=== PATIENT | female | born 1935 | race Caucasian/White ===

== ENCOUNTER 2017-02-21 03:31 | Day surgery (SDC) | payer MEDICARE, BC ==
--- NOTE | 2017-02-21 04:02 | EDM.PDOC ---
ED HPI GENERAL MEDICAL PROBLEM - General Chief Complaint: Abdominal Pain Stated Complaint: ABDOMINAL PAIN Time Seen by Provider: 02/21/17 03:52 - History of Present Illness INITIAL COMMENTS - FREE TEXT/NARRATIVE: 81-year-old female presents to the emergency room with abdominal pain. This abdominal pain started around 5:00 or 6:00 this last evening and continued through the night. It is now on the right side mostly lower abdomen. She has some left-sided back discomfort and this radiates around to her right lower quadrant. The pain does not extend into the groin. The patient has significant nausea no vomiting no diarrhea no constipation last normal movement was this morning several hours ago. The patient still has her appendix she's had a complete hysterectomy. She has had ovarian cancer treated with radiation. Past medical history significant for her ovarian cancer approximately 20 years ago treated with radiation and surgery no chemotherapy she is treated for thyroid disorder, hypertension, and glaucoma. Right Lower Abdominal Pain Score (Numeric/FACES): 8 - Related Data Allergies Allergy/AdvReac Type Severity Reaction Status Date / Time amoxicillin Allergy Rash Verified 02/21/17 09:39 Home Meds: Home Meds Calcium Carbonate/Vitamin D3 [Calcium 500 + Vit D Caplet] 1 each PO DAILY [History] Dextran 70/Hypromellose [Artificial Tears] 1 each OP ASDIRECTED PRN 02/21/17 [ History] Docusate Sodium [Colace] 100 mg PO DAILY 02/21/17 [History] Fish Oil/[place]-3 Fatty Acids [Fish Oil] 1 each PO BID 02/21/17 [History] Ibuprofen 200 mg PO ASDIRECTED PRN 02/21/17 [History] Levothyroxine 75 mcg PO SUTUWETHSA 02/21/17 [History] Levothyroxine [Synthroid] 50 mcg PO MOFR 02/21/17 [History] Lovastatin 40 mg PO DAILY 02/21/17 [History] Multivitamin [Multi-Vitamin Daily] 1 each PO DAILY 02/21/17 [History] Omeprazole 20 mg PO DAILY PRN 02/21/17 [History] Timolol Maleate [Timoptic 0.5% Ophth Soln] 5 ml EYEBOTH DAILY 02/21/17 [History] Travoprost [Travatan Z] 2.5 ml OP BEDTIME 02/21/17 [History] Past Medical History HEENT History: Reports: Impaired Vision Cardiovascular History: Reports: High Cholesterol Endocrine/Metabolic History: Reports: Hypothyroidism Social & Family History - Tobacco Use Smoking Status *Q: Never Smoker - Recreational Drug Use Recreational Drug Use: No ED ROS GENERAL - Review of Systems Review Of Systems: See Below Constitutional: Reports: No Symptoms HEENT: Reports: No Symptoms Respiratory: Reports: No Symptoms Cardiovascular: Reports: No Symptoms GI/Abdominal: Reports: Abdominal Pain, Nausea. Denies: Constipation, Diarrhea, Vomiting : Reports: No Symptoms Musculoskeletal: Reports: Back Pain Neurological: Reports: No Symptoms ED EXAM, GI/ABD - Physical Exam Exam: See Below Exam Limited By: No Limitations General Appearance: Alert, No Apparent Distress Head: Atraumatic, Normocephalic Neck: Normal Inspection, Supple, Non-Tender, Full Range of Motion. No: Lymphadenopathy (L), Lymphadenopathy (R) Respiratory/Chest: No Respiratory Distress, Lungs Clear, Normal Breath Sounds Cardiovascular: Regular Rate, Rhythm, No Edema, No Murmur GI/Abdominal Exam: Normal Bowel Sounds, Soft, Rebound (Firm pressure in the left lower abdomen upon releasing this patient had a significant shooting pain in the right lower quadrant), Tender (Significant right lower quadrant tenderness worsened with palpation), Other (With firm tapping on a fully extended right leg this caused discomfort in the right lower quadrant). No: Guarding, Rigid Back Exam: Normal Inspection. No: CVA Tenderness (L), CVA Tenderness (R) Extremities: Normal Inspection, No Pedal Edema Neurological: Alert, Oriented, Normal Cognition Course - Vital Signs Last Recorded V/S: Last Vital Signs Temp 36.5 C 02/21/17 14:25 Pulse 101 H 02/21/17 14:25 Resp 20 02/21/17 14:25 BP 130/62 02/21/17 14:25 Pulse Ox 97 02/21/17 14:25 - Orders/Labs/Meds Orders: Active Orders 24 hr Category Date Time Status Patient Status [ADT] Routine ADT 02/21/17 08:15 Active Communication Order [RC] ROUTINE Care 02/21/17 10:24 Active Cooling Warming Measures [RC] ASDIRECTED Care 02/21/17 10:24 Active EKG Documentation Completion [RC] STAT Care 02/21/17 04:15 Active Notify Provider [RC] ASDIRECTED Care 02/21/17 10:24 Active Oxygen Therapy [RC] ASDIRECTED Care 02/21/17 10:24 Active Pulse Oximetry [RC] ASDIRECTED Care 02/21/17 10:24 Active Ready for Discharge [RC] PER UNIT ROUTINE Care 02/21/17 10:36 Active Verify Patient Consent Obtain [RC] ASDIRECTED Care 02/21/17 07:58 Active Vital Signs [RC] Q15M Care 02/21/17 10:24 Active Schedule Procedure [COMM] Urgent Oth 02/21/17 07:58 Ordered Labs: Laboratory Tests 02/21/17 02/21/17 02/21/17 Range/Units 03:45 03:45 05:50 WBC 17.72 H (3.98-10.04) K/mm3 RBC 4.92 (3.98-5.22) M/mm3 Hgb 14.7 (11.2-15.7) gm/L Hct 44.4 (34.1-44.9) % MCV 90.2 (79.4-94.8) fl MCH 29.9 (25.6-32.2) pg MCHC 33.1 (32.2-35.5) g/dl RDW Std Deviation 47.2 H (36.4-46.3) fL Plt Count 302 (182-369) K/mm3 MPV 10.4 (9.4-12.3) fl Neut % (Auto) 78.5 H (34.0-71.1) % Lymph % (Auto) 11.0 L (19.3-51.7) % [place] % (Auto) 8.2 (4.7-12.5) % Eos % (Auto) 1.7 (0.7-5.8) Baso % (Auto) 0.3 (0.1-1.2) % Neut # (Auto) 13.89 H (1.56-6.13) K/mm3 Lymph # (Auto) 1.95 (1.18-3.74) K/mm3 [place] # (Auto) 1.45 H (0.24-0.36) K/mm3 Eos # (Auto) 0.31 (0.04-0.36) K/mm3 Baso # (Auto) 0.06 (0.01-0.08) K/mm3 Sodium 139 (136-145) mEq/L Potassium 4.1 (3.5-5.1) mEq/L Chloride 103 (98-107) mEq/L Carbon Dioxide 25 (21-32) mEq/L Anion Gap 15.1 H (5-15) BUN 14 (7-18) mg/dL Creatinine 1.1 H (0.55-1.02) mg/dL Est Cr Clr Drug Dosing 29.30 mL/min Estimated GFR (MDRD) 48 (>60) mL/min BUN/Creatinine Ratio 12.7 L (14-18) Glucose 141 H (83-115) mg/dL Calcium 9.6 (8.5-10.1) mg/dL Total Bilirubin 0.4 (0.2-1.0) mg/dL AST 30 (15-37) U/L ALT 28 (14-59) U/L Alkaline Phosphatase 96 (46-116) U/L Total Protein 7.8 (6.4-8.2) g/dl Albumin 3.7 (3.4-5.0) g/dl Globulin 4.1 gm/dL Albumin/Globulin Ratio 0.9 L (1-2) Lipase 181 (73-393) U/L Urine Color Yellow (Yellow) Urine Appearance Clear (Clear) Urine pH 7.5 (5.0-8.0) Ur Specific [place] 1.020 (1.005-1.030) Urine Protein Negative (Negative) Urine Glucose (UA) Negative (Negative) Urine Ketones Negative (Negative) Urine Occult Blood Negative (Negative) Urine Nitrite Negative (Negative) Urine Bilirubin Negative (Negative) Urine Urobilinogen 0.2 (0.2-1.0) Ur Leukocyte Esterase Trace H (Negative) Urine RBC Not seen (0-5) /hpf Urine WBC 0-5 (0-5) /hpf Ur Epithelial Cells 0-5 (0-5) /hpf Urine Bacteria Many H (FEW) /hpf Urine Mucus Not seen (FEW) /hpf Meds: Medications Discontinued Medications Generic Name Dose Route Start Last Admin Trade Name Freq PRN Reason Stop Dose Admin Hydrocodone Bitart/Acetaminophen 1 tab 02/21/17 13:03 02/21/17 13:15 [place] 325-5 Mg PO 02/21/17 13:04 1 tab ONETIME ONE Administration Bupivacaine HCl Confirm 02/21/17 08:10 02/21/17 09:29 Marcaine 0.5% Administered 02/21/17 08:11 11 ml Dose Administration 30 ml .ROUTE .STK-MED ONE Dexamethasone Confirm 02/21/17 10:31 Dexamethasone Administered 02/21/17 10:32 Dose 20 mg .ROUTE .STK-MED ONE Diatrizoate Meglum/Diatrizoate Sod 90 ml 02/21/17 05:43 02/21/17 06:17 Gastrografin 37% PO 02/21/17 05:44 90 ml ONETIME ONE Administration Diphenhydramine HCl 25 mg 02/21/17 10:26 Benadryl IVPUSH 02/21/17 18:00 Q6H PRN pruritis Fentanyl Confirm 02/21/17 08:51 Sublimaze Administered 02/21/17 08:52 Dose 250 mcg .ROUTE .STK-MED ONE Fentanyl 50 mcg 02/21/17 11:15 Sublimaze IVPUSH 02/21/17 11:31 Q5M PRN Pain Glycopyrrolate Confirm 02/21/17 10:23 [place] Administered 02/21/17 10:24 Dose 0.2 mg .ROUTE .STK-MED ONE Glycopyrrolate Confirm 02/21/17 10:23 [place]ul Administered 02/21/17 10:24 Dose 0.2 mg .ROUTE .STK-MED ONE Glycopyrrolate Confirm 02/21/17 10:23 [place]ul Administered 02/21/17 10:24 Dose 0.2 mg .ROUTE .STK-MED ONE Hydromorphone HCl 0.25 mg 02/21/17 04:36 02/21/17 04:42 Dilaudid IVPUSH 02/21/17 04:37 0.25 mg ONETIME ONE Administration Hydromorphone HCl 0.25 mg 02/21/17 06:55 02/21/17 07:04 Dilaudid IVPUSH 02/21/17 06:56 0.25 mg STAT STA Administration Hydromorphone HCl 0.5 mg 02/21/17 11:15 Dilaudid IVPUSH 02/21/17 11:31 Q15M PRN severe pain Lactated Ringer's 500 mls @ 500 mls/hr 02/21/17 04:05 02/21/17 04:20 Ringers, Lactated IV 02/21/17 05:04 500 mls/hr .BOLUS ONE Administration Lactated Ringer's 1,000 mls @ 125 mls/hr 02/21/17 04:15 02/21/17 15:14 Ringers, Lactated IV 02/21/17 23:00 125 mls/hr ASDIRECTED ROSY Administration Lactated Ringer's 500 mls @ 500 mls/hr 02/21/17 05:09 Ringers, Lactated IV 02/21/17 06:08 .BOLUS ONE Cefoxitin Sodium 1 gm/ Premix 50 mls @ 100 mls/hr 02/21/17 06:39 02/21/17 06: 47 IV 02/21/17 07:08 100 mls/hr ONETIME ONE Administration Lidocaine HCl Confirm 02/21/17 08:51 Xylocaine-Mpf 1% Administered 02/21/17 08:52 Dose 4 mls @ as directed .ROUTE .STK-MED ONE Lactated Ringer's Confirm 02/21/17 08:51 Ringers, Lactated Administered 02/21/17 08:52 Dose 1,000 mls @ as directed .ROUTE .STK-MED ONE Phenylephrine HCl 1 mg/ Sodium 10.1 mls @ 1 mls/sec 02/21/17 10:30 Chloride IV 02/21/17 18:00 TITRATE [facility] Protocol Iopamidol 150 ml 02/21/17 05:43 02/21/17 06:18 Isovue-300 (61%) IVPUSH 02/21/17 05:44 125 ml ONETIME ONE Administration Metoclopramide HCl 10 mg 02/21/17 10:26 Reglan IV 02/21/17 18:00 ONETIME PRN Nausea/Vomiting Neostigmine Methylsulfate Confirm 02/21/17 10:23 Neostigmine Methylsulfate Administered 02/21/17 10:24 Dose 10 mg .ROUTE .STK-MED ONE Ondansetron HCl 4 mg 02/21/17 04:06 02/21/17 04:19 Zofran IVPUSH 02/21/17 04:07 4 mg ONETIME ONE Administration Ondansetron HCl 4 mg 02/21/17 05:51 02/21/17 05:55 Zofran IVPUSH 02/21/17 05:52 4 mg ONETIME ONE Administration Ondansetron HCl Confirm 02/21/17 08:51 Zofran Administered 02/21/17 08:52 Dose 4 mg .ROUTE .STK-MED ONE Ondansetron HCl 4 mg 02/21/17 10:26 Zofran IVPUSH 02/21/17 18:00 ONETIME PRN Nausea/Vomiting Phenylephrine HCl Confirm 02/21/17 09:43 Geoff-Synephrine Administered 02/21/17 09:44 Dose 10 mg .ROUTE .STK-MED ONE Propofol Confirm 02/21/17 08:51 Diprivan 20 Ml Administered 02/21/17 08:52 Dose 200 mg .ROUTE .STK-MED ONE Rocuronium [place] Confirm 02/21/17 08:51 Zemuron Administered 02/21/17 08:52 Dose 50 mg .ROUTE .STK-MED ONE Scopolamine 1.5 mg 02/21/17 08:57 02/21/17 09:23 Transderm-Scop TRDERM 02/21/17 08:58 1.5 mg ONETIME ONE Administration - Re-Assessments/Exams Free Text/Narrative Re-Assessment/Exam: 02/21/17 04:06 After initial evaluation patient has rebound tenderness with pain localized to the right lower quadrant. We will start oral contrast anticipating abdominal pelvic CT with IV and oral contrast 02/21/17 06:42 CT is compatible with early appendicitis. Case discussed with Dr. Welch will give the patient a gram of cefoxitin. Departure - Departure Time of Disposition: 06:00 Disposition: DC/Tfer to [facility] Clinical Impression: Acute appendicitis - Discharge Information - My Orders Last 24 Hours: My Active Orders 02/21/17 04:15 EKG Documentation Completion [RC] STAT - Assessment/Plan Last 24 Hours: My Active Orders 02/21/17 04:15 EKG Documentation Completion [RC] STAT
[2017-02-21] MEDS ORDERED: Lactated Ringers 500 ML IV ONE ×2 (04:05→05:09)
[2017-02-21] MEDS ORDERED: Ondansetron 4 MG/2 ML SDV IVPUSH ONE ×2 (04:06→05:51)
[2017-02-21] MEDS ORDERED: HYDROmorphone 0.5 MG/0.5 ML Syringe IVPUSH ONE (04:36)
[2017-02-21] MEDS: Lactated Ringers 1,000 ML IV SCH ×2 (05:35→15:14)
[2017-02-21] MEDS ORDERED: Iopamidol 612 MG/ML 150 ML Bottle IVPUSH ONE (05:43)
[2017-02-21] MEDS ORDERED: Diatrizoate Meglumine/Diatrizoate Sodium 37% 120 ML Bottle PO ONE (05:43)
--- NOTE | 2017-02-21 06:33 | CT ---
CT abdomen and pelvis Technique: Multiple axial sections were obtained from above the dome of the diaphragm inferiorly through the pubic symphysis. Intravenous and oral contrast has been given. Delayed images were also obtained through the bladder. Comparison: No previous abdominal or pelvic CT exam is available. Findings: Appendix is dilated. Appendix contains some increased density most likely due to appendicoliths. Slight inflammatory change is seen around the appendix. Findings are felt compatible with early appendicitis. Visualized lung bases shows nothing acute. Liver shows no focal parenchymal abnormality. Spleen appears within normal limits. Adrenal glands show no nodule. Kidneys show contrast enhancement without hydronephrosis or mass. Pancreas is within normal limits. Aorta shows atherosclerotic change which continues into the iliac vessels. No aneurysm is seen. Gallbladder shows no calcified gallstones. No retroperitoneal adenopathy or mesenteric abnormalities are seen. No pelvic mass or adenopathy is seen. 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 Diffuse endplate osteophytes are seen. Vacuum disc phenomena is noted within multiple lower lumbar spine levels. Impression: 1. Findings which are felt compatible with early appendicitis as described above. 2. Other incidental findings. Diagnostic code #5
[2017-02-21] MEDS ORDERED: cefOXitin 1 GM in Premix Bag 1 BAG IV ONE (06:39)
[2017-02-21] MEDS ORDERED: HYDROmorphone 0.5 MG/0.5 ML Syringe IVPUSH STA (06:55)
[2017-02-21] MEDS ORDERED: Bupivacaine 0.5% 30 ML SDV ONE (08:10)
[2017-02-21] MEDS ORDERED: Rocuronium 50 MG/5 ML Vial ONE (08:51)
[2017-02-21] MEDS ORDERED: Lidocaine 1% 4 ML ONE (08:51)
[2017-02-21] MEDS ORDERED: Lactated Ringers 1,000 ML ONE (08:51)
[2017-02-21] MEDS ORDERED: fentaNYL 250 MCG/5 ML SDV ONE (08:51)
[2017-02-21] MEDS ORDERED: Ondansetron 4 MG/2 ML SDV ONE (08:51)
[2017-02-21] MEDS ORDERED: Propofol 200 MG/20 ML SDV ONE (08:51)
[2017-02-21] MEDS ORDERED: Scopolamine 1.5 MG Transdermal Patch TRDERM ONE (08:57)
--- NOTE | 2017-02-21 08:57 | PCM.PREANE ---
Preanesthetic Assessment - Anesthesia/Transfusion/Family Hx Anesthesia History: Prior Anesthesia Without Reaction Type of Anesthesia Reaction: Excessive Nausea/Vomiting Family History of Anesthesia Reaction: No Transfusion History: No Prior Transfusion(s) Intubation History: Unknown - Review of Systems General: No Symptoms Pulmonary: No Symptoms Cardiovascular: No Symptoms, Palpitations (on occasion) Gastrointestinal: No Symptoms (GERD with certain foods), Abdominal Pain, Nausea Neurological: No Symptoms Other: Reports: None (history of hysterectomy/ovarian Ca with radiation therapy in the past. 1990), Easy Bruising, Thyroid Problems (hyothyroid) - Physical Assessment NPO Status Date: 02/21/17 NPO Status Time: 06:18 Pulse: 100 O2 Sat by Pulse Oximetry: 95 Respiratory Rate: 26 Blood Pressure: 162/74 Temperature: 36.6 C Vital Signs: Last Vital Signs Temp 36.6 C 02/21/17 06:44 Pulse 100 02/21/17 06:44 Resp 26 H 02/21/17 06:44 BP 162/74 H 02/21/17 06:44 Pulse Ox 95 02/21/17 06:44 Height: 1.52 m Weight: 56.699 kg ASA Class: 2E Mental Status: Alert & Oriented x3 Airway Class: Mallampati = 2 Dentition: Reports: Normal Dentition, Caries Thyro-Mental Finger Breadths: 3 Mouth Opening Finger Breadths: 3 ROM/Head Extension: Full Lungs: Clear to Auscultation, Normal Respiratory Effort Cardiovascular: Regular Rate, Regular Rhythm, No Murmurs - Lab Values: Laboratory Last Values WBC 17.72 K/mm3 (3.98-10.04) H 02/21/17 03:45 RBC 4.92 M/mm3 (3.98-5.22) 02/21/17 03:45 Hgb 14.7 gm/L (11.2-15.7) 02/21/17 03:45 Hct 44.4 % (34.1-44.9) 02/21/17 03:45 MCV 90.2 fl (79.4-94.8) 02/21/17 03:45 MCH 29.9 pg (25.6-32.2) 02/21/17 03:45 MCHC 33.1 g/dl (32.2-35.5) 02/21/17 03:45 RDW Std Deviation 47.2 fL (36.4-46.3) H 02/21/17 03:45 Plt Count 302 K/mm3 (182-369) 02/21/17 03:45 MPV 10.4 fl (9.4-12.3) 02/21/17 03:45 Neut % (Auto) 78.5 % (34.0-71.1) H 02/21/17 03:45 Lymph % (Auto) 11.0 % (19.3-51.7) L 02/21/17 03:45 [place] % (Auto) 8.2 % (4.7-12.5) 02/21/17 03:45 Eos % (Auto) 1.7 (0.7-5.8) 02/21/17 03:45 Baso % (Auto) 0.3 % (0.1-1.2) 02/21/17 03:45 Neut # (Auto) 13.89 K/mm3 (1.56-6.13) H 02/21/17 03:45 Lymph # (Auto) 1.95 K/mm3 (1.18-3.74) 02/21/17 03:45 [place] # (Auto) 1.45 K/mm3 (0.24-0.36) H 02/21/17 03:45 Eos # (Auto) 0.31 K/mm3 (0.04-0.36) 02/21/17 03:45 Baso # (Auto) 0.06 K/mm3 (0.01-0.08) 02/21/17 03:45 Sodium 139 mEq/L (136-145) 02/21/17 03:45 Potassium 4.1 mEq/L (3.5-5.1) 02/21/17 03:45 Chloride 103 mEq/L (98-107) 02/21/17 03:45 Carbon Dioxide 25 mEq/L (21-32) 02/21/17 03:45 Anion Gap 15.1 (5-15) H 02/21/17 03:45 BUN 14 mg/dL (7-18) 02/21/17 03:45 Creatinine 1.1 mg/dL (0.55-1.02) H 02/21/17 03:45 Est Cr Clr Drug Dosing 29.30 mL/min 02/21/17 03:45 Estimated GFR (MDRD) 48 mL/min (>60) 02/21/17 03:45 BUN/Creatinine Ratio 12.7 (14-18) L 02/21/17 03:45 Glucose 141 mg/dL (83-115) H 02/21/17 03:45 Calcium 9.6 mg/dL (8.5-10.1) 02/21/17 03:45 Total Bilirubin 0.4 mg/dL (0.2-1.0) 02/21/17 03:45 AST 30 U/L (15-37) 02/21/17 03:45 ALT 28 U/L (14-59) 02/21/17 03:45 Alkaline Phosphatase 96 U/L (46-116) 02/21/17 03:45 Total Protein 7.8 g/dl (6.4-8.2) 02/21/17 03:45 Albumin 3.7 g/dl (3.4-5.0) 02/21/17 03:45 Globulin 4.1 gm/dL 02/21/17 03:45 Albumin/Globulin Ratio 0.9 (1-2) L 02/21/17 03:45 Lipase 181 U/L (73-393) 02/21/17 03:45 Urine Color Yellow (Yellow) 02/21/17 05:50 Urine Appearance Clear (Clear) 02/21/17 05:50 Urine pH 7.5 (5.0-8.0) 02/21/17 05:50 Ur Specific [place] 1.020 (1.005-1.030) 02/21/17 05:50 Urine Protein Negative (Negative) 02/21/17 05:50 Urine Glucose (UA) Negative (Negative) 02/21/17 05:50 Urine Ketones Negative (Negative) 02/21/17 05:50 Urine Occult Blood Negative (Negative) 02/21/17 05:50 Urine Nitrite Negative (Negative) 02/21/17 05:50 Urine Bilirubin Negative (Negative) 02/21/17 05:50 Urine Urobilinogen 0.2 (0.2-1.0) 02/21/17 05:50 Ur Leukocyte Esterase Trace (Negative) H 02/21/17 05:50 Urine RBC Not seen /hpf (0-5) 02/21/17 05:50 Urine WBC 0-5 /hpf (0-5) 02/21/17 05:50 Ur Epithelial Cells 0-5 /hpf (0-5) 02/21/17 05:50 Urine Bacteria Many /hpf (FEW) H 02/21/17 05:50 Urine Mucus Not seen /hpf (FEW) 02/21/17 05:50 Above labs reviewed and noted and within acceptable ranges to proceed with scheduled surgery. - Imaging/EKG Impressions: EKG: SR rate= 90 - Allergies Allergies/Adverse Reactions: Allergies Allergy/AdvReac Type Severity Reaction Status Date / Time amoxicillin Allergy Rash Verified 02/21/17 03:43 - Anesthesia Plan Pre-Op Medication Ordered: None - Acknowledgements Anesthesia Type Planned: General Anesthesia Pt an Appropriate Candidate for the Planned Anesthesia: Yes Alternatives and Risks of Anesthesia Discussed w Pt/Guardian: Yes Pt/Guardian Understands and Agrees with Anesthesia Plan: Yes PreAnesthesia Questionnaire HEENT History: Reports: Impaired Vision Cardiovascular History: Reports: High Cholesterol Endocrine/Metabolic History: Reports: Hypothyroidism - SUBSTANCE USE Smoking Status *Q: Never Smoker Recreational Drug Use History: No - HOME MEDS Home Medications: Home Meds Levothyroxine 75 mcg PO SUTUWETHSA 02/21/17 [History] Levothyroxine [Synthroid] 50 mcg PO MOFR 02/21/17 [History] Lovastatin 40 mg PO DAILY 02/21/17 [History] Timolol Maleate [Timoptic 0.5% Ophth Soln] 5 ml EYEBOTH DAILY 02/21/17 [History] Travoprost [Travatan Z] 2.5 ml OP BEDTIME 02/21/17 [History] - CURRENT (IN HOUSE) MEDS Current Meds: Current Medications Lactated Ringer's (Ringers, Lactated) 1,000 mls @ 125 mls/hr IV ASDIRECTED ROSY Last Admin: 02/21/17 05:35 Dose: 125 mls/hr Discontinued Medications Bupivacaine HCl (Marcaine 0.5%) Confirm Administered Dose 30 ml .ROUTE .STK-MED ONE Stop: 02/21/17 08:11 Diatrizoate Meglum/Diatrizoate Sod (Gastrografin 37%) 90 ml PO ONETIME ONE Stop: 02/21/17 05:44 Last Admin: 02/21/17 06:17 Dose: 90 ml Fentanyl (Sublimaze) Confirm Administered Dose 250 mcg .ROUTE .STK-MED ONE Stop: 02/21/17 08:52 Hydromorphone HCl (Dilaudid) 0.25 mg IVPUSH ONETIME ONE Stop: 02/21/17 04:37 Last Admin: 02/21/17 04:42 Dose: 0.25 mg Hydromorphone HCl (Dilaudid) 0.25 mg IVPUSH STAT STA Stop: 02/21/17 06:56 Last Admin: 02/21/17 07:04 Dose: 0.25 mg Lactated Ringer's (Ringers, Lactated) 500 mls @ 500 mls/hr IV .BOLUS ONE Stop: 02/21/17 05:04 Last Admin: 02/21/17 04:20 Dose: 500 mls/hr Lactated Ringer's (Ringers, Lactated) 500 mls @ 500 mls/hr IV .BOLUS ONE Stop: 02/21/17 06:08 Cefoxitin Sodium 1 gm/ Premix 50 mls @ 100 mls/hr IV ONETIME ONE Stop: 02/21/17 07:08 Last Admin: 02/21/17 06:47 Dose: 100 mls/hr Lidocaine HCl (Xylocaine-Mpf 1%) Confirm Administered Dose 4 mls @ as directed .ROUTE .STK-MED ONE Stop: 02/21/17 08:52 Lactated Ringer's (Ringers, Lactated) Confirm Administered Dose 1,000 mls @ as directed .ROUTE .STK-MED ONE Stop: 02/21/17 08:52 Iopamidol (Isovue-300 (61%)) 150 ml IVPUSH ONETIME ONE Stop: 02/21/17 05:44 Last Admin: 02/21/17 06:18 Dose: 125 ml Ondansetron HCl (Zofran) 4 mg IVPUSH ONETIME ONE Stop: 02/21/17 04:07 Last Admin: 02/21/17 04:19 Dose: 4 mg Ondansetron HCl (Zofran) 4 mg IVPUSH ONETIME ONE Stop: 02/21/17 05:52 Last Admin: 02/21/17 05:55 Dose: 4 mg Ondansetron HCl (Zofran) Confirm Administered Dose 4 mg .ROUTE .STK-MED ONE Stop: 02/21/17 08:52 Propofol (Diprivan 20 Ml) Confirm Administered Dose 200 mg .ROUTE .STK-MED ONE Stop: 02/21/17 08:52 Rocuronium [place] (Zemuron) Confirm Administered Dose 50 mg .ROUTE .STK-MED ONE Stop: 02/21/17 08:52
[2017-02-21] MEDS ORDERED: Phenylephrine 1% 10 MG/ML SDV ONE (09:43)
[2017-02-21] MEDS ORDERED: Glycopyrrolate 0.2 MG/ML SDV ONE ×3 (10:23)
[2017-02-21] MEDS ORDERED: Neostigmine Methylsulfate 10 MG/10 ML MDV ONE (10:23)
[2017-02-21] MEDS ORDERED: Metoclopramide 10 MG/2 ML SDV IV PRN (10:26)
[2017-02-21] MEDS ORDERED: Ondansetron 4 MG/2 ML SDV IVPUSH PRN (10:26)
[2017-02-21] MEDS ORDERED: diphenhydrAMINE 50 MG/ML SDV IVPUSH PRN (10:26)
[2017-02-21] MEDS ORDERED: Phenylephrine 1 MG in Sodium Chloride 0.9% 10 ML IV SCH (10:30)
[2017-02-21] MEDS ORDERED: Dexamethasone 4 MG/ML 5 ML MDV ONE (10:31)
--- NOTE | 2017-02-21 10:34 | PCM.OPNOTE ---
- General Post-Op/Procedure Note Date of Surgery/Procedure: 02/21/17 Operative Procedure(s): lap appy and lysis of adhesions Pre Op Diagnosis: acute appendicitis Post-Op Diagnosis: Same Anesthesia Technique: General ET Tube Primary Surgeon: Tuan Welch EBL in mLs: 25 Complications: None Condition: Good
--- NOTE | 2017-02-21 10:55 | HP ---
DATE OF ADMISSION: 02/21/2017 HISTORY OF PRESENT ILLNESS: This is an 81-year-old, who has pain in the abdomen started at 5 or 6 o'clock. Yesterday evening it continued and now on the right side mostly lower abdomen. Associated with some nausea. No vomiting. The patient was seen in the emergency room, [place] [phone] [place] scan was done showing appendicitis. PAST MEDICAL HISTORY: The patient's medical history is important in that 20 years ago she had ovarian cancer or uterine cancer, and she says she had intrauterine radiation. No chemotherapy. She did have a total abdominal hysterectomy. CURRENT MEDICATIONS: Per medication reconciliation form. MEDICAL PROBLEMS: Consist of hypothyroidism and elevated cholesterol. Never smoked. No drinking. No use of drugs. REVIEW OF SYSTEMS: No chest pain, shortness of breath, cough, hoarseness, wheezing, fainting, weakness, numbness, or convulsions. Does have some nausea. No vomiting. No diarrhea. PHYSICAL EXAMINATION: GENERAL: Alert, cooperative female. VITAL SIGNS: Pulse 103, respirations 18, blood pressure 182/78. EYES: Sclerae white. Extraocular muscle motion normal. ORAL CAVITY: Healthy mucous membrane with mouth and tongue. NECK: Supple. No nodes. No thyromegaly. LUNGS: Clear. No rales, rhonchi, fremitus, or dullness. HEART: Tones regular rate. No S3, S4, jugular venous distention, or murmurs. ABDOMEN: Shows tenderness and guarding in the right lower quadrant. Lower midline surgical scar. The rest of the abdominal quadrants will be obtained regarding. EXTREMITIES: Upper and lower extremities, no angulation deformities. No swelling. SKIN: Warm and dry. NEUROLOGIC: 3 through 12 intact. MUSCULOSKELETAL: Free of any pathology. ASSESSMENT: Acute appendicitis, a past history of radiation for what sounds like uterine cancer. PLAN: Plan for laparoscopic appendectomy. Discussed this procedure with the patient, with the need for aberrant placement of the ports to avoid the adhesions in the abdominal cavity. The patient understands and consents. We will schedule. MMODAL /[id number]
--- NOTE | 2017-02-21 11:00 | PCM.POSTAN ---
POST ANESTHESIA ASSESSMENT - MENTAL STATUS Mental Status: Alert - VITAL SIGNS Pulse Rate: 110 SaO2: 96 Resp Rate: 13 Blood Pressure: 168/96 Temperature: 36.6 C - RESPIRATORY Respiratory Status: Respiratory Rate WNL, Airway Patent, O2 Saturation Stable, Supplemental Oxygen - CARDIOVASCULAR CV Status: Pulse Rate WNL, Blood Pressure Stable - GASTROINTESTINAL GI Status: No Symptoms - POST OP HYDRATION Hydration Status: Adequate & Stable
[2017-02-21] MEDS ORDERED: HYDROmorphone 0.5 MG/0.5 ML Syringe IVPUSH PRN (11:15)
[2017-02-21] MEDS ORDERED: fentaNYL 100 MCG/2 ML SDV IVPUSH PRN (11:15)
[2017-02-21] MEDS ORDERED: Acetaminophen/HYDROcodone 325-5 MG Tab PO ONE (13:03)
--- NOTE | 2017-02-21 14:04 | PCM48HPAN ---
Post Anesthesia Note - EVALUATION WITHIN 48HRS OF ANESTHETIC Vital Signs in Normal Range: Yes Patient Participated in Evaluation: Yes Respiratory Function Stable: Yes Airway Patent: Yes Cardiovascular Function Stable: Yes Hydration Status Stable: Yes Pain Control Satisfactory: Yes Nausea and Vomiting Control Satisfactory: Yes Mental Status Recovered: Yes
[2017-02-21 14:29] VITALS: BP 130/62
--- NOTE | 2017-02-24 07:52 | OR ---
DATE OF OPERATION: 02/21/2017 SURGEON: Tuan Welch MD PREOPERATIVE DIAGNOSIS: Acute appendicitis, adhesions of abdomen. POSTOPERATIVE DIAGNOSIS: Acute appendicitis, adhesions of abdomen. OPERATION PERFORMED: Lysis of adhesions and laparoscopic appendectomy. ANESTHESIA: Done under general anesthetic. ESTIMATED BLOOD LOSS: About 25 mL. FINDINGS: Acute appendicitis with some adhesions of omentum just above the umbilicus. DESCRIPTION OF PROCEDURE: The patient was taken to the operating room, placed in a supine position, connected to monitoring equipment, given a general anesthetic and intubated. Antibiotics had been given. SCDs were placed. The abdomen was prepped with DuraPrep, draped off in a sterile fashion. Incision was made just above the umbilicus and using a 5 mm Optiport, abdominal cavity was entered. Pneumoperitoneum established and a 5-mm 30-degree camera was inserted showing the abdominal cavity clear except for adhesions just at the port site. No bowel was involved. I was elected to remove with a 5-mm Optiport, and the incision was then enlarged and Javier trocar was then placed in the previous Optiport site and secured with stay sutures. The abdominal cavity was then scanned and appendix was noted inflamed in the right lower quadrant. A 5 mm port was placed in the right upper quadrant and right lower quadrant. Camera was placed in the right upper quadrant port and the LigaSure was then used to take down the adhesions. Care was taken to make sure the bowel was not injured and bowel was inspected and no injuries sustained. Attention was then directed to the appendix which was tented up, and a window was placed in the base of the appendix and the mesoappendix and Endo ligator Ethicon was placed and the appendix was from the cecum. Another firing of the Endo ligator the mesoappendix from the appendix. The appendix was placed in an Endobag and removed from the abdominal cavity. Pneumoperitoneum was then re- established, the area was checked, and excellent hemostasis noted. The area was irrigated and the staple line was secured and again where the adhesions were taken down were checked again and was no bleeding. This completed the intraabdominal portion of the procedure. Pneumoperitoneum and ports were removed. The supraumbilical port was closed with running 0 Vicryl suture and the skin of each port closed with subdermal 4-0 Dexon suture. Steri-Strips and sterile dressing placed. The patient tolerated the procedure and sent to recovery room in a stable condition. MMODAL /[id number]
== END 2017-02-21 15:00 ==
LOC: JD.ED 03:31 → JD.SDS 08:09
PROVIDERS: ATTEND Surgery
DX: K35.80 Unspecified acute appendicitis (principal); I10 Essential (primary) hypertension; E03.9 Hypothyroidism, unspecified; Z90.710 Acquired absence of both cervix and uterus; Z88.1 Allergy status to other antibiotic agents; Z92.3 Personal history of irradiation; Z79.899 Other long term (current) drug therapy
CPT/HCPCS: 36415; 44970; 74177; 80053; 81001; 83690; 85025; 93005; 96361; 96365; 96375; 99285; A9270; J0694; J1100; J1170; J2370; J2405; J2710; J3010; J3490; J7120; Q9963; Q9967; 00840; 88304; 99284; J2704

== ENCOUNTER 2017-02-24 16:38 | Inpatient (IN) | payer MEDICARE, BC ==
[2017-02-24] MEDS ORDERED: Ondansetron 4 MG/2 ML SDV IVPUSH PRN (17:29)
--- NOTE | 2017-02-24 18:31 | CR ---
Addendum: Second to the last sentence within the body of previous report shows a grammatical error caused by voice recognition. This sentence should read as follows: Bony structures show slight degenerative change within the lower thoracic and lumbar spine. Other portions of the dictation remain the same. --- Addendum1 above dictated on [02/28/2017 11:00] by [Margi Kaufman, Vinh Monterroso] --- --- Addendum1 above signed on [02/28/2017 11:02] by [Margi Kaufman, Vinh Monterroso] --- --- Original report below dictated on [02/24/2017 18:27] by [Margi Kaufman Hilton J.] --- --- Original report below signed on [02/24/2017 18:29] by [Margi Kaufman, Vinh Monterroso] --- Abdomen: Supine and upright views of the abdomen were obtained. Comparison: Previous CT abdomen and pelvis exam of 02/21/17. Findings: Multiple surgical clips are seen within the abdomen. Contrast is noted within the colon from previous CT exam. This is felt to be within normal limits at this time. Small amount of small bowel gas is seen which is normal. Bony structures shows slight degenerative spine and within the lower thoracic and lumbar spine. No free air is seen. Impression: 1. Findings which are felt to be incidental as described above. Nothing acute is appreciated. Diagnostic code #2 --- Addendum1 signed ---
[2017-02-24] MEDS ORDERED: Hypromellose 0.5% Ophth Soln 15 ML Bottle EYEBOTH PRN (18:33)
[2017-02-24] MEDS: Ertapenem 1 GM in Sodium Chloride 0.9% 100 ML IV SCH (19:47)
[2017-02-24] MEDS: Levothyroxine 50 MCG Tab PO SCH (19:47)
[2017-02-24] MEDS: Lactated Ringers 1,000 ML IV SCH (19:49)
[2017-02-24] MEDS ORDERED: Aluminum Hydroxide/Magnesium Hydroxide/Simethicone Susp 30 ML Cup PO PRN (20:18)
[2017-02-24] MEDS: Latanoprost 0.005% Ophth Soln 2.5 ML Bottle EYEBOTH SCH (20:32)
[2017-02-24] MEDS: Simvastatin 10 MG Tab PO SCH (20:33)
[2017-02-24] MEDS ORDERED: Heparin Sodium 10,000 Units/1 ML MDV SUBCUT SCH (21:00)
[2017-02-25] MEDS: metroNIDAZOLE/Normal Saline 500 MG in Premix Bag 1 BAG IV SCH ×4 (00:28→23:42)
[2017-02-25] MEDS: HYDROmorphone 0.5 MG/0.5 ML Syringe IVPUSH PRN (00:35)
[2017-02-25] MEDS: Levothyroxine 75 MCG Tab PO SCH (05:57)
[2017-02-25] MEDS: Lactated Ringers 1,000 ML IV SCH ×2 (05:58→16:55)
[2017-02-25] MEDS: Heparin Sodium 5,000 Units/ML Vial SUBCUT SCH ×2 (08:24→20:35)
[2017-02-25] MEDS: Timolol Maleate 0.5% Ophth Soln 5 ML Bottle EYEBOTH SCH (08:32)
[2017-02-25] MEDS ORDERED: Pantoprazole 40 MG Tab.CR PO PRN (09:00)
[2017-02-25] MEDS: Ertapenem 1 GM in Sodium Chloride 0.9% 100 ML IV SCH (10:46)
[2017-02-25] MEDS ORDERED: Sodium Chloride 0.9% 500 ML IV ONE (13:30)
--- NOTE | 2017-02-25 15:35 | PCM.SURGPN ---
- General Info Date of Service: 02/25/17 - Review of Systems General: Reports: Appetite (poor some nausea) Gastrointestinal: Reports: No Symptoms, Abdominal Pain (crampy this am but has resolved with bm ), Diarrhea (loose stools ), Flatus, Other (pain in the RLQ) - Patient Data Vitals - Most Recent: Last Vital Signs Temp 98.6 F 02/25/17 12:00 Pulse 81 02/25/17 12:00 Resp 14 02/25/17 12:00 BP 148/75 H 02/25/17 12:00 Pulse Ox 98 02/25/17 12:00 Weight - Most Recent: 61.552 kg I&O - Last 24 Hours: Intake & Output 02/24/17 02/25/17 02/25/17 23:59 07:59 15:59 Intake Total 1192 Output Total 400 Balance 792 Lab Results Last 24 Hrs: Laboratory Results - last 24 hr 02/24/17 02/24/17 Range/Units 17:58 17:58 WBC 14.19 H (3.98-10.04) K/mm3 RBC 4.49 (3.98-5.22) M/mm3 Hgb 13.4 (11.2-15.7) gm/L Hct 41.0 (34.1-44.9) % MCV 91.3 (79.4-94.8) fl MCH 29.8 (25.6-32.2) pg MCHC 32.7 (32.2-35.5) g/dl RDW Std Deviation 47.7 H (36.4-46.3) fL Plt Count 334 (182-369) K/mm3 MPV 10.4 (9.4-12.3) fl Sodium 138 (136-145) mEq/L Potassium 3.8 (3.5-5.1) mEq/L Chloride 99 (98-107) mEq/L Carbon Dioxide 32 (21-32) mEq/L Anion Gap 10.8 (5-15) BUN 9 (7-18) mg/dL Creatinine 0.9 (0.55-1.02) mg/dL Est Cr Clr Drug Dosing 35.81 mL/min Estimated GFR (MDRD) > 60 (>60) mL/min BUN/Creatinine Ratio 10.0 L (14-18) Glucose 126 H (83-115) mg/dL Calcium 10.2 H (8.5-10.1) mg/dL TSH 3rd Generation 0.390 (0.358-3.74) uIU/mL Med Orders - Current: Current Medications Al Hydroxide/Mg Hydroxide (Mag-Al Plus) 30 ml PO Q4H PRN PRN Reason: Heartburn Last Admin: 02/24/17 20:32 Dose: 30 ml Artificial Tears (Isopto Tears 0.5% Ophth Soln) 0 ml EYEBOTH ASDIRECTED PRN PRN Reason: Dry Eyes Heparin Sodium (Porcine) (Heparin Sodium) 5,000 units SUBCUT Q12HR [facility] Last Admin: 02/25/17 08:24 Dose: 5,000 units Hydromorphone HCl (Dilaudid) 0.5 mg IVPUSH Q6H PRN PRN Reason: Pain (severe 7-10) Last Admin: 02/25/17 00:35 Dose: 0.5 mg Lactated Ringer's (Ringers, Lactated) 1,000 mls @ 100 mls/hr IV ASDIRECTED [facility] Last Admin: 02/25/17 05:58 Dose: 100 mls/hr Metronidazole 500 mg/ Premix 100 mls @ 100 mls/hr IV Q8H [facility] Last Admin: 02/25/17 08:25 Dose: 100 mls/hr Cefoxitin Sodium 2 gm/ Premix 50 mls @ 100 mls/hr IV Q8H [facility] Latanoprost (Xalatan 0.005% Ophth Soln) 0 ml EYEBOTH BEDTIME [facility] Last Admin: 02/24/17 20:32 Dose: 1 drop Levothyroxine Sodium (Levothyroxine) 75 mcg PO SuTuWeThSa@0600 [facility] Last Admin: 02/25/17 05:57 Dose: 75 mcg Levothyroxine Sodium (Synthroid) 50 mcg PO MoFr@0600 [facility] Last Admin: 02/24/17 19:47 Dose: Not Given Ondansetron HCl (Zofran) 4 mg IVPUSH Q8H PRN PRN Reason: Nausea Last Admin: 02/25/17 00:35 Dose: 4 mg Pantoprazole Sodium (Protonix) 40 mg PO DAILY PRN PRN Reason: HEARTBURN Simvastatin (Zocor) 10 mg PO BEDTIME [facility] Last Admin: 02/24/17 20:33 Dose: 10 mg Timolol Maleate (Timoptic 0.5% Ophth Soln) 0 ml EYEBOTH DAILY [facility] Last Admin: 02/25/17 08:32 Dose: 1 drop Discontinued Medications Heparin Sodium (Porcine) (Heparin Sodium) 5,000 units SUBCUT Q12HR [facility] Last Admin: 02/24/17 20:33 Dose: 5,000 units Ertapenem 1 gm/ Sodium (Chloride) 100 mls @ 100 mls/hr IV DAILY [facility] Last Admin: 02/25/17 10:46 Dose: 100 mls/hr Sodium Chloride (Normal Saline) 500 mls @ 500 mls/hr IV .BOLUS ONE Stop: 02/25/17 14:29 Last Admin: 02/25/17 14:47 Dose: Not Given - Exam Wound/Incisions: Healing Well Lungs: Clear to Auscultation, Normal Respiratory Effort Cardiovascular: Regular Rate, Regular Rhythm GI/Abdominal Exam: Soft, Tender (rlq) - Problem List Review Problem List Initiated/Reviewed/Updated: Yes - My Orders Last 24 Hours: Active Orders 24 hr Category Date Time Status Patient Status [ADT] Routine ADT 02/24/17 17:01 Active Ambulate [RC] ASDIRECTED Care 02/24/17 17:15 Active Cardiac Monitoring [RC] . DIRECTED Care 02/24/17 17:01 Active Enema [RC] ASDIRECTED Care 02/24/17 19:24 Active Intake and Output [RC] 04,16 Care 02/24/17 17:12 Active Peripheral IV Care [RC] Q2HR Care 02/24/17 17:14 Active Vital Signs [RC] 00,04,08,12,16,20 Care 02/24/17 17:13 Active Clear Liquid Diet [DIET] Diet 02/25/17 Dinner Ordered NPO [Nothing Per Oral Diet] [DIET] Diet 02/24/17 Dinner Active CBC WITH AUTO DIFF [HEME] Routine Lab 02/26/17 07:00 Ordered Alum Hydrox/Mag Hydrox/Simeth [Mag-Al Plus] Med 02/24/17 20:18 Active 30 ml PO Q4H PRN HYDROmorphone [Dilaudid] Med 02/24/17 17:30 Active 0.5 mg IVPUSH Q6H PRN Heparin Sodium Med 02/25/17 09:00 Active 5,000 units SUBCUT Q12HR Hypromellose [Isopto Tears 0.5% Ophth Soln] Med 02/24/17 18:33 Active 0 ml EYEBOTH ASDIRECTED PRN Lactated Ringers @ 50 MLS/HR(1000ml Bag) Med 02/25/17 15:45 Ordered Lactated Ringers [Ringers, Lactated] 1,000 ml IV ASDIRECTED Lactated Ringers [Ringers, Lactated] 1,000 ml Med 02/24/17 17:30 Active IV ASDIRECTED Latanoprost [Xalatan 0.005% Ophth Soln] Med 02/24/17 21:00 Active 0 ml EYEBOTH BEDTIME Levothyroxine Med 02/25/17 06:00 Active 75 mcg PO SuTuWeThSa@0600 Levothyroxine [Synthroid] Med 02/24/17 18:00 Active 50 mcg PO MoFr@0600 Ondansetron [Zofran] Med 02/24/17 17:29 Active 4 mg IVPUSH Q8H PRN Pantoprazole [ProTONIX] Med 02/25/17 09:00 Active 40 mg PO DAILY PRN Simvastatin [Zocor] Med 02/24/17 21:00 Active 10 mg PO BEDTIME Timolol Maleate [Timoptic 0.5% Oph Soln] Med 02/25/17 09:00 Active 0 ml EYEBOTH DAILY cefOXitin [Mefoxin in Dextrose,Iso-Osm 2 GM/50 ML] 2 gm Med 02/26/17 10:00 Active Premix Bag 1 bag IV Q8H metroNIDAZOLE/Normal Saline [Flagyl 500 MG in NS 100 ML Med 02/25/17 00:00 Active ] 500 mg Premix Bag 1 bag IV Q8H Resuscitation Status Routine Resus Stat 02/24/17 18:09 Ordered Medication Orders Al Hydroxide/Mg Hydroxide (Mag-Al Plus) 30 ml PO Q4H PRN PRN Reason: Heartburn Last Admin: 02/24/17 20:32 Dose: 30 ml Artificial Tears (Isopto Tears 0.5% Ophth Soln) 0 ml EYEBOTH ASDIRECTED PRN PRN Reason: Dry Eyes Heparin Sodium (Porcine) (Heparin Sodium) 5,000 units SUBCUT Q12HR [facility] Last Admin: 02/25/17 08:24 Dose: 5,000 units Hydromorphone HCl (Dilaudid) 0.5 mg IVPUSH Q6H PRN PRN Reason: Pain (severe 7-10) Last Admin: 02/25/17 00:35 Dose: 0.5 mg Lactated Ringer's (Ringers, Lactated) 1,000 mls @ 100 mls/hr IV ASDIRECTED [facility] Last Admin: 02/25/17 05:58 Dose: 100 mls/hr Infusion: 02/25/17 05:49 Dose: 100 mls/hr Admin: 02/24/17 19:49 Dose: 100 mls/hr Metronidazole 500 mg/ Premix 100 mls @ 100 mls/hr IV Q8H [facility] Last Admin: 02/25/17 08:25 Dose: 100 mls/hr Infusion: 02/25/17 01:28 Dose: 100 mls/hr Admin: 02/25/17 00:28 Dose: 100 mls/hr Cefoxitin Sodium 2 gm/ Premix 50 mls @ 100 mls/hr IV Q8H [facility] Latanoprost (Xalatan 0.005% Ophth Soln) 0 ml EYEBOTH BEDTIME [facility] Last Admin: 02/24/17 20:32 Dose: 1 drop Levothyroxine Sodium (Levothyroxine) 75 mcg PO SuTuWeThSa@0600 [facility] Last Admin: 02/25/17 05:57 Dose: 75 mcg Levothyroxine Sodium (Synthroid) 50 mcg PO MoFr@0600 [facility] Last Admin: 02/24/17 19:47 Dose: Ondansetron HCl (Zofran) 4 mg IVPUSH Q8H PRN PRN Reason: Nausea Last Admin: 02/25/17 00:35 Dose: 4 mg Pantoprazole Sodium (Protonix) 40 mg PO DAILY PRN PRN Reason: HEARTBURN Simvastatin (Zocor) 10 mg PO BEDTIME [facility] Last Admin: 02/24/17 20:33 Dose: 10 mg Timolol Maleate (Timoptic 0.5% Ophth Soln) 0 ml EYEBOTH DAILY [facility] Last Admin: 02/25/17 08:32 Dose: 1 drop - Plan Plan (Free Text/Narrative):: VS stable pt abdomen is softer and less tender xrays and pt complaint of cramps indicated a localized ileus in the rt colon ass improved plan advance diet and check cbc
[2017-02-25] MEDS: Simvastatin 10 MG Tab PO SCH (20:35)
[2017-02-25] MEDS: Latanoprost 0.005% Ophth Soln 2.5 ML Bottle EYEBOTH SCH (20:36)
[2017-02-26] MEDS: Lactated Ringers 1,000 ML IV SCH (01:00)
[2017-02-26] MEDS: HYDROmorphone 0.5 MG/0.5 ML Syringe IVPUSH PRN (01:55)
[2017-02-26] MEDS: Levothyroxine 75 MCG Tab PO SCH (05:01)
[2017-02-26] MEDS: cefOXitin 2 GM in Premix Bag 1 BAG IV SCH ×2 (09:21→18:26)
[2017-02-26] MEDS: Heparin Sodium 5,000 Units/ML Vial SUBCUT SCH ×2 (09:23→22:32)
[2017-02-26] MEDS: Timolol Maleate 0.5% Ophth Soln 5 ML Bottle EYEBOTH SCH (09:25)
[2017-02-26] MEDS: metroNIDAZOLE/Normal Saline 500 MG in Premix Bag 1 BAG IV SCH ×3 (09:58→23:20)
[2017-02-26] MEDS ORDERED: Sodium Chloride 0.9% 10 ML Syringe FLUSH PRN (14:23)
--- NOTE | 2017-02-26 14:23 | PCM.SURGPN ---
- General Info Date of Service: 02/26/17 Functional Status: Reports: Pain Controlled - Review of Systems General: Reports: No Symptoms Pulmonary: Reports: No Symptoms Gastrointestinal: Reports: Diarrhea (loose stool with every trip to the BM) - Patient Data Vitals - Most Recent: Last Vital Signs Temp 97.5 F 02/26/17 11:56 Pulse 81 02/26/17 11:56 Resp 14 02/26/17 11:56 BP 151/62 H 02/26/17 11:56 Pulse Ox 98 02/26/17 11:56 Weight - Most Recent: 61.099 kg I&O - Last 24 Hours: Intake & Output 02/25/17 02/26/17 02/26/17 23:59 07:59 15:59 Intake Total 280 725 360 Output Total 1100 600 Balance -820 125 360 Lab Results Last 24 Hrs: Laboratory Results - last 24 hr 02/26/17 Range/Units 05:22 WBC 11.81 H (3.98-10.04) K/mm3 RBC 4.02 (3.98-5.22) M/mm3 Hgb 11.8 (11.2-15.7) gm/L Hct 36.9 (34.1-44.9) % MCV 91.8 (79.4-94.8) fl MCH 29.4 (25.6-32.2) pg MCHC 32.0 L (32.2-35.5) g/dl RDW Std Deviation 47.7 H (36.4-46.3) fL Plt Count 318 (182-369) K/mm3 MPV 10.3 (9.4-12.3) fl Neut % (Auto) 60.4 (34.0-71.1) % Lymph % (Auto) 20.2 (19.3-51.7) % [place] % (Auto) 11.9 (4.7-12.5) % Eos % (Auto) 4.1 (0.7-5.8) Baso % (Auto) 1.0 (0.1-1.2) % Neut # (Auto) 7.13 H (1.56-6.13) K/mm3 Lymph # (Auto) 2.38 (1.18-3.74) K/mm3 [place] # (Auto) 1.41 H (0.24-0.36) K/mm3 Eos # (Auto) 0.49 H (0.04-0.36) K/mm3 Baso # (Auto) 0.12 H (0.01-0.08) K/mm3 Manual Slide Review Normal smear Med Orders - Current: Current Medications Al Hydroxide/Mg Hydroxide (Mag-Al Plus) 30 ml PO Q4H PRN PRN Reason: Heartburn Last Admin: 02/24/17 20:32 Dose: 30 ml Artificial Tears (Isopto Tears 0.5% Ophth Soln) 0 ml EYEBOTH ASDIRECTED PRN PRN Reason: Dry Eyes Last Admin: 02/25/17 17:00 Dose: 1 drop Heparin Sodium (Porcine) (Heparin Sodium) 5,000 units SUBCUT Q12HR [facility] Last Admin: 02/26/17 09:23 Dose: 5,000 units Hydromorphone HCl (Dilaudid) 0.5 mg IVPUSH Q6H PRN PRN Reason: Pain (severe 7-10) Last Admin: 02/26/17 01:55 Dose: 0.5 mg Metronidazole 500 mg/ Premix 100 mls @ 100 mls/hr IV Q8H [facility] Last Admin: 02/26/17 09:58 Dose: 100 mls/hr Cefoxitin Sodium 2 gm/ Premix 50 mls @ 100 mls/hr IV Q8H [facility] Last Admin: 02/26/17 09:21 Dose: 100 mls/hr Lactated Ringer's (Ringers, Lactated) 1,000 mls @ 50 mls/hr IV ASDIRECTED [facility] Last Admin: 02/26/17 01:00 Dose: 50 mls/hr Latanoprost (Xalatan 0.005% Ophth Soln) 0 ml EYEBOTH BEDTIME [facility] Last Admin: 02/25/17 20:36 Dose: 1 drop Levothyroxine Sodium (Levothyroxine) 75 mcg PO SuTuWeThSa@0600 [facility] Last Admin: 02/26/17 05:01 Dose: 75 mcg Levothyroxine Sodium (Synthroid) 50 mcg PO MoFr@0600 [facility] Last Admin: 02/24/17 19:47 Dose: Not Given Ondansetron HCl (Zofran) 4 mg IVPUSH Q8H PRN PRN Reason: Nausea Last Admin: 02/25/17 00:35 Dose: 4 mg Pantoprazole Sodium (Protonix) 40 mg PO DAILY PRN PRN Reason: HEARTBURN Simvastatin (Zocor) 10 mg PO BEDTIME [facility] Last Admin: 02/25/17 20:35 Dose: 10 mg Timolol Maleate (Timoptic 0.5% Ophth Soln) 0 ml EYEBOTH DAILY [facility] Last Admin: 02/26/17 09:25 Dose: 2 drop Discontinued Medications Heparin Sodium (Porcine) (Heparin Sodium) 5,000 units SUBCUT Q12HR [facility] Last Admin: 02/24/17 20:33 Dose: 5,000 units Lactated Ringer's (Ringers, Lactated) 1,000 mls @ 100 mls/hr IV ASDIRECTED [facility] Last Admin: 02/25/17 05:58 Dose: 100 mls/hr Ertapenem 1 gm/ Sodium (Chloride) 100 mls @ 100 mls/hr IV DAILY [facility] Last Admin: 02/25/17 10:46 Dose: 100 mls/hr Sodium Chloride (Normal Saline) 500 mls @ 500 mls/hr IV .BOLUS ONE Stop: 02/25/17 14:29 Last Admin: 02/25/17 14:47 Dose: Not Given - Exam GI/Abdominal Exam: Tender (much less than yesterday ) - Problem List Review Problem List Initiated/Reviewed/Updated: Yes - My Orders Last 24 Hours: Active Orders 24 hr Category Date Time Status Clear Liquid Diet [DIET] Diet 02/25/17 Dinner Active Lactated Ringers [Ringers, Lactated] 1,000 ml Med 02/25/17 15:45 Active IV ASDIRECTED cefOXitin [Mefoxin in Dextrose,Iso-Osm 2 GM/50 ML] 2 gm Med 02/26/17 10:00 Active Premix Bag 1 bag IV Q8H Medication Orders Al Hydroxide/Mg Hydroxide (Mag-Al Plus) 30 ml PO Q4H PRN PRN Reason: Heartburn Last Admin: 02/24/17 20:32 Dose: 30 ml Artificial Tears (Isopto Tears 0.5% Ophth Soln) 0 ml EYEBOTH ASDIRECTED PRN PRN Reason: Dry Eyes Last Admin: 02/25/17 17:00 Dose: 1 drop Heparin Sodium (Porcine) (Heparin Sodium) 5,000 units SUBCUT Q12HR [facility] Last Admin: 02/26/17 09:23 Dose: 5,000 units Admin: 02/25/17 20:35 Dose: 5,000 units Admin: 02/25/17 08:24 Dose: 5,000 units Hydromorphone HCl (Dilaudid) 0.5 mg IVPUSH Q6H PRN PRN Reason: Pain (severe 7-10) Last Admin: 02/26/17 01:55 Dose: 0.5 mg Admin: 02/25/17 00:35 Dose: 0.5 mg Metronidazole 500 mg/ Premix 100 mls @ 100 mls/hr IV Q8H [facility] Last Admin: 02/26/17 09:58 Dose: 100 mls/hr Infusion: 02/26/17 00:42 Dose: 100 mls/hr Admin: 02/25/17 23:42 Dose: 100 mls/hr Infusion: 02/25/17 17:55 Dose: 100 mls/hr Admin: 02/25/17 16:55 Dose: 100 mls/hr Infusion: 02/25/17 09:25 Dose: 100 mls/hr Admin: 02/25/17 08:25 Dose: 100 mls/hr Infusion: 02/25/17 01:28 Dose: 100 mls/hr Admin: 02/25/17 00:28 Dose: 100 mls/hr Cefoxitin Sodium 2 gm/ Premix 50 mls @ 100 mls/hr IV Q8H [facility] Last Admin: 02/26/17 09:21 Dose: 100 mls/hr Lactated Ringer's (Ringers, Lactated) 1,000 mls @ 50 mls/hr IV ASDIRECTED [facility] Last Admin: 02/26/17 01:00 Dose: 50 mls/hr Infusion: 02/26/17 01:00 Dose: 50 mls/hr Admin: 02/25/17 16:55 Dose: 50 mls/hr Latanoprost (Xalatan 0.005% [facility] Soln) 0 ml EYEBOTH BEDTIME [facility] Last Admin: 02/25/17 20:36 Dose: 1 drop Admin: 02/24/17 20:32 Dose: 1 drop Levothyroxine Sodium (Levothyroxine) 75 mcg PO SuTuWeThSa@0600 [facility] Last Admin: 02/26/17 05:01 Dose: 75 mcg Admin: 02/25/17 05:57 Dose: 75 mcg Levothyroxine Sodium (Synthroid) 50 mcg PO MoFr@0600 [facility] Last Admin: 02/24/17 19:47 Dose: Ondansetron HCl (Zofran) 4 mg IVPUSH Q8H PRN PRN Reason: Nausea Last Admin: 02/25/17 00:35 Dose: 4 mg Pantoprazole Sodium (Protonix) 40 mg PO DAILY PRN PRN Reason: HEARTBURN Simvastatin (Zocor) 10 mg PO BEDTIME [facility] Last Admin: 02/25/17 20:35 Dose: 10 mg Admin: 02/24/17 20:33 Dose: 10 mg Timolol Maleate (Timoptic 0.5% Oph Soln) 0 ml EYEBOTH DAILY [facility] Last Admin: 02/26/17 09:25 Dose: 2 drop Admin: 02/25/17 08:32 Dose: 1 drop - Plan Plan (Free Text/Narrative):: slow improvment of sx wbc is decreasing ass improvement plan attendent to diarrhea with c diff study advance dient
[2017-02-26] MEDS ORDERED: hydrALAZINE 20 MG/ML SDV IVPUSH PRN (15:38)
[2017-02-26] MEDS ORDERED: LORazepam 2 MG/ML MDV IVPUSH PRN (15:38)
[2017-02-26] MEDS ORDERED: Bumetanide 1 MG/4 ML MDV IVPUSH ONE (15:38)
[2017-02-26] MEDS ORDERED: Metoprolol Tartrate 5 MG/5 ML SDV IVPUSH PRN (15:38)
[2017-02-26] MEDS ORDERED: cloNIDine 0.1 MG/Day Transdermal Patch TRDERM SCH (16:00)
--- NOTE | 2017-02-26 16:15 | PCM.CONS ---
H&P History of Present Illness - General Date of Service: 02/26/17 Admit Problem/Dx: Admission Diagnosis/Problem Admission Diagnosis/Problem Abdominal pain Source of Information: Patient, Old Records, Provider, RN Notes Reviewed, Significant Other History Limitations: Reports: No Limitations - History of Present Illness Initial Comments - Free Text/Narative: This is an 9o yo elderly white female with past medical hx/o hypothyroidism and hyperlipidemia who underwent laparoscopic appendectomy post operative day 5 who comes in for abdominal pain, abdominal distension and elevated WBC. Patient seems to be doing just fine. She reports nausea w/o vomiting and loose bowel movement. She denies fever or chills. No chest pain or shortness of breath. No signs of systemic infection. Her initial workup shows a CBC remarkable for WBC of 11.81, and neutrophils count of 7.13. Hospital medicine was consulted for medical management of accelerated blood pressure. Bilateral Lower Abdomen Pain Score (Numeric/FACES): 5 - Related Data Allergies/Adverse Reactions: Allergies Allergy/AdvReac Type Severity Reaction Status Date / Time amoxicillin Allergy Rash Verified 02/21/17 09:39 Home Medications: Home Meds Calcium Carbonate/Vitamin D3 [Calcium 500 + Vit D Caplet] 1 each PO DAILY [History] Dextran 70/Hypromellose [Artificial Tears] 1 each OP ASDIRECTED PRN 02/21/17 [ History] Docusate Sodium [Colace] 100 mg PO DAILY 02/21/17 [History] Fish Oil/[place]-3 Fatty Acids [Fish Oil] 1 each PO DAILY 02/21/17 [History] Ibuprofen 200 mg PO Q4HR PRN 02/21/17 [History] Levothyroxine 75 mcg PO SUTUWETHSA 02/21/17 [History] Levothyroxine [Synthroid] 50 mcg PO MOFR 02/21/17 [History] Lovastatin 20 mg PO BEDTIME 02/21/17 [History] Multivitamin [Multi-Vitamin Daily] 1 each PO DAILY 02/21/17 [History] Omeprazole 20 mg PO DAILY PRN 02/21/17 [History] Timolol Maleate [Timoptic 0.5% Ophth Soln] 1 drop EYEBOTH DAILY 02/21/17 [ History] Travoprost [Travatan Z] 1 drop EYEBOTH BEDTIME 02/21/17 [History] Acetaminophen/HYDROcodone [Maple 325-5 MG] 1 tab PO Q6HR PRN 02/24/17 [History] Clindamycin HCl [Cleocin HCl] 300 mg PO TID 02/24/17 [History] Past Medical History HEENT History: Reports: Glaucoma, Impaired Vision, Macular Degeneration Cardiovascular History: Reports: High Cholesterol Gastrointestinal History: Reports: GERD NAIL KEGGER History: Reports: Other (See Below) Other OB/BYN History: ovarian cancer Musculoskeletal History: Reports: Arthritis Endocrine/Metabolic History: Reports: Hypothyroidism Other Oncologic History: ovarian cancer had radiation 1990 - Infectious Disease History Infectious Disease History: Reports: Measles - Past Surgical History HEENT Surgical History: Reports: None Cardiovascular Surgical History: Reports: None GI Surgical History: Reports: None Female Surgical History: Reports: Hysterectomy, Oophorectomy Endocrine Surgical History: Reports: None Other Musculoskeletal Surgeries/Procedures:: bilat knee ache and hurt alot. Oncologic Surgical History: Reports: None Dermatological Surgical History: Reports: None Social & Family History - Family History Family Medical History: Noncontributory - Tobacco Use Smoking Status *Q: Never Smoker Second Hand Smoke Exposure: No - Caffeine Use Caffeine Use: Reports: Coffee Other Caffeine Use: 1 cup - Recreational Drug Use Recreational Drug Use: No Drug Use in Last 12 Months: No H&P Review of Systems - Review of Systems: Review Of Systems: See Below General: Denies: Fever, Chills, Malaise, Weakness, Fatigue, Decreased Appetite HEENT: Reports: No Symptoms Pulmonary: Denies: Shortness of Breath Cardiovascular: Reports: Blood Pressure Problem. Denies: Chest Pain, Dyspnea on Exertion, Edema, Lightheadedness Gastrointestinal: Reports: Abdominal Pain, Distension, Flatus, Nausea. Denies: Constipation, Diarrhea, Decreased Appetite, Difficulty Swallowing, Vomiting Genitourinary: Reports: No Symptoms Musculoskeletal: Reports: No Symptoms Skin: Denies: Cyanosis, Jaundice, Pallor Psychiatric: Denies: Depression, Anxiety, Hallucinations, Suicidal Ideation, Homicidal Ideation Neurological: Denies: Confusion, Difficulty Walking, Weakness, Gait Disturbance Hematologic/Lymphatic: Reports: No Symptoms Immunologic: Reports: No Symptoms Exam - Exam Exam: See Below - Vital Signs Vital Signs: Last Vital Signs Temp 36.8 C 02/26/17 15:08 Pulse 81 02/26/17 15:08 Resp 12 02/26/17 15:08 BP 170/62 H 02/26/17 15:58 Pulse Ox 100 02/26/17 15:08 Weight: 61.099 kg - Exam General: Alert, Oriented, Cooperative. No: Mild Distress HEENT: Conjunctiva Clear, EACs Clear, EOMI, Hearing Intact, Mucosa Moist & [place] , Nares Patent, Normal Nasal Septum, Posterior Pharynx Clear, Pupils Equal, Pupils Reactive Neck: Supple, Trachea Midline Lungs: Clear to Auscultation, Normal Respiratory Effort Cardiovascular: Regular Rate, Regular Rhythm GI/Abdominal Exam: Soft, No Organomegaly, Tender, Abnormal Bowel Sounds, Other ( surgical wounds clean, dry and intact). No: No Distention, No Abnormal Bruit, No Mass, Guarding, Rigid, Rebound (Female) Exam: Deferred Rectal (Female) Exam: Deferred Back Exam: Normal Inspection, Decreased Range of Motion Extremities: Normal Inspection, Normal Range of Motion, Non-Tender, No Pedal Edema, Normal Capillary Refill Peripheral Pulses: 2+: Posterior Tibial (L), Posterior Tibial (R), Dorsalis Pedis (L), Dorsalis Pedis (R) Skin: Warm, Dry, Intact Neuro Extensive - Mental Status: Oriented x3, Normal Cognition, Memory Intact Neuro Extensive - Motor, Sensory, Reflexes: CN II-XII Intact (grossly intact), Normal Gait Psychiatric: Alert, Normal Affect, Normal Mood - Patient Data Lab Results Last 24 hrs: Laboratory Results - last 24 hr 02/26/17 Range/Units 05:22 WBC 11.81 H (3.98-10.04) K/mm3 RBC 4.02 (3.98-5.22) M/mm3 Hgb 11.8 (11.2-15.7) gm/L Hct 36.9 (34.1-44.9) % MCV 91.8 (79.4-94.8) fl MCH 29.4 (25.6-32.2) pg MCHC 32.0 L (32.2-35.5) g/dl RDW Std Deviation 47.7 H (36.4-46.3) fL Plt Count 318 (182-369) K/mm3 MPV 10.3 (9.4-12.3) fl Neut % (Auto) 60.4 (34.0-71.1) % Lymph % (Auto) 20.2 (19.3-51.7) % Rains % (Auto) 11.9 (4.7-12.5) % Eos % (Auto) 4.1 (0.7-5.8) Baso % (Auto) 1.0 (0.1-1.2) % Neut # (Auto) 7.13 H (1.56-6.13) K/mm3 Lymph # (Auto) 2.38 (1.18-3.74) K/mm3 Rains # (Auto) 1.41 H (0.24-0.36) K/mm3 Eos # (Auto) 0.49 H (0.04-0.36) K/mm3 Baso # (Auto) 0.12 H (0.01-0.08) K/mm3 Manual Slide Review Normal smear Result Diagrams: 02/26/17 05:22 02/24/17 17:58 Consult PN Assessment/Plan POD#: 5 Procedures: Procedures ASSAY THYROID STIM HORMONE (10/22/16) COMPLETE CBC AUTOMATED (10/22/16) COMPREHEN METABOLIC PANEL (10/22/16) DXA BONE DENSITY AXIAL (05/04/15) LIPID PANEL (10/22/16) MANUAL THERAPY 1/> REGIONS (10/03/16) METABOLIC PANEL TOTAL CA (04/23/16) MRI JNT OF LWR EXTRE W/O DYE (09/06/16) OFFICE/OUTPATIENT VISIT EST (10/22/16) OFFICE/OUTPATIENT VISIT NEW (09/04/16) PT EVAL LOW COMPLEX 20 MIN (10/03/16) ROUTINE VENIPUNCTURE (10/22/16) THERAPEUTIC EXERCISES (10/03/16) URINALYSIS AUTO W/O SCOPE (10/22/16) Problem List Initiated/Reviewed/Updated: Yes My Orders Last 24 Hours: My Active Orders 02/26/17 15:38 LORazepam [Ativan] 2 mg IVPUSH Q4H PRN Metoprolol Tartrate [Lopressor] 5 mg IVPUSH Q4H PRN hydrALAZINE [Apresoline] 20 mg IVPUSH Q4H PRN 02/26/17 16:00 cloNIDine [Catapres-TTS 1] 0.1 mg TRDERM Q7D Plan: Assessment: Acute: Post- Operative Hypertension (Accelerated HTN) - Has no hx/o HTN - Pain and BP on average not controlled - Highest BP noted at 180/82 mmHg - Clonidine 0.1 mg po x 1 and Bumex 0.5 mg IVP x 1 now - PRN Hydralazine S/p Lap-Appendectomy - POD #5 - Defer to Primary Team Post-Operative Leukocytosis - Inflammatory vs Infection - Defer to Primary Team Chronic: Hypothyroidism, Stable HLD, Stable Plan: She looks clinically stable otherwise Resume Home Meds CRP in AM Encourage to Ambulate TID-QID Additional orders as above Thank you for the opportunity to participate in the management of this patient. Requesting Provider: Dr. Welch Date Consult Requested: 02/26/17 Reason for Consult: Post-Operative Care Patient History Reviewed: Yes Admission H&P Reviewed: Yes Consult Result/Summary: Hypertension
[2017-02-26] MEDS: Latanoprost 0.005% Ophth Soln 2.5 ML Bottle EYEBOTH SCH (22:31)
[2017-02-26] MEDS: Simvastatin 10 MG Tab PO SCH (22:32)
[2017-02-26] MEDS: Hydrochlorothiazide 12.5 MG Cap PO SCH (22:32)
[2017-02-27] MEDS: cefOXitin 2 GM in Premix Bag 1 BAG IV SCH ×2 (01:34→10:13)
[2017-02-27] MEDS: Hydrochlorothiazide 12.5 MG Cap PO SCH ×2 (06:08→13:46)
[2017-02-27] MEDS: Levothyroxine 75 MCG Tab PO SCH (06:09)
[2017-02-27] MEDS: Timolol Maleate 0.5% Ophth Soln 5 ML Bottle EYEBOTH SCH (08:12)
[2017-02-27] MEDS: Heparin Sodium 5,000 Units/ML Vial SUBCUT SCH ×2 (08:13→21:50)
[2017-02-27] MEDS: metroNIDAZOLE/Normal Saline 500 MG in Premix Bag 1 BAG IV SCH ×2 (08:13→16:09)
--- NOTE | 2017-02-27 11:20 | PCM.CONSN ---
<Lidia Heart M - Last Filed: 02/27/17 12:22> - General Info Date of Service: 02/27/17 Admission Dx/Problem (Free Text): Admission Diagnosis/Problem Admission Diagnosis/Problem Abdominal pain Rebekah is seen this morning. Doing "better". Did not sleep well as had "diarrhea " most of the night and did not rest well. However, no further stools for the past few hours now. Denies ALLEN, CP, palpitations, vision change, back pain, hematuria with re: HTN. B/P's have been under better control. Functional Status: Reports: Pain Controlled, Tolerating Diet, Ambulating (with assist), Urinating - Review of Systems General: Reports: Fever (low grade) HEENT: Reports: No Symptoms Pulmonary: Reports: No Symptoms Cardiovascular: Reports: No Symptoms Gastrointestinal: Reports: Abdominal Pain (improved), Diarrhea. Denies: Nausea , Vomiting Genitourinary: Reports: No Symptoms. Denies: Dysuria, Burning, Pain, Urgency Musculoskeletal: Reports: No Symptoms Neurological: Reports: No Symptoms Psychiatric: Reports: No Symptoms - Patient Data Vitals - Most Recent: Last Vital Signs Temp 99.0 F 02/27/17 08:03 Pulse 94 02/27/17 08:03 Resp 14 02/27/17 08:03 BP 126/77 02/27/17 08:03 Pulse Ox 100 02/27/17 08:03 Weight - Most Recent: 59.693 kg I&O - Last 24 Hours: Intake & Output 02/26/17 02/27/17 02/27/17 22:59 06:59 14:59 Intake Total 1703 775 100 Output Total 700 2450 Balance 1003 -1675 100 Lab Results Last 24 Hours: Laboratory Results - last 24 hr 02/26/17 02/27/17 Range/Units 16:00 05:45 C-Reactive Protein 11.2 H* (<1.0) mg/dL C.difficile [id number]-[id number] Presumptive negative C. difficile Tox (PCR) Negative Med Orders - Current: Current Medications Al Hydroxide/Mg Hydroxide (Mag-Al Plus) 30 ml PO Q4H PRN PRN Reason: Heartburn Last Admin: 02/24/17 20:32 Dose: 30 ml Artificial Tears (Isopto Tears 0.5% Ophth Soln) 0 ml EYEBOTH ASDIRECTED PRN PRN Reason: Dry Eyes Last Admin: 02/25/17 17:00 Dose: 1 drop Clonidine HCl (Catapres-Tts 1) 0.1 mg TRDERM Q7D [facility] Last Admin: 02/26/17 15:58 Dose: 0.1 mg Heparin Sodium (Porcine) (Heparin Sodium) 5,000 units SUBCUT Q12HR [facility] Last Admin: 02/27/17 08:13 Dose: 5,000 units Hydralazine HCl (Apresoline) 20 mg IVPUSH Q4H PRN PRN Reason: Hypertension Hydrochlorothiazide (Hydrochlorothiazide) 12.5 mg PO BIDDIURETIC [facility] Last Admin: 02/27/17 06:08 Dose: 12.5 mg Hydromorphone HCl (Dilaudid) 0.5 mg IVPUSH Q6H PRN PRN Reason: Pain (severe 7-10) Last Admin: 02/26/17 01:55 Dose: 0.5 mg Metronidazole 500 mg/ Premix 100 mls @ 100 mls/hr IV Q8H [facility] Last Admin: 02/27/17 08:13 Dose: 100 mls/hr Cefoxitin Sodium 2 gm/ Premix 50 mls @ 100 mls/hr IV Q8H [facility] Last Admin: 02/27/17 10:13 Dose: 100 mls/hr Latanoprost (Xalatan 0.005% Oph Soln) 0 ml EYEBOTH BEDTIME [facility] Last Admin: 02/26/17 22:31 Dose: 1 drop Levothyroxine Sodium (Levothyroxine) 75 mcg PO SuTuWeThSa@0600 [facility] Last Admin: 02/27/17 06:09 Dose: 75 mcg Levothyroxine Sodium (Synthroid) 50 mcg PO MoFr@0600 [facility] Last Admin: 02/24/17 19:47 Dose: Not Given Lorazepam (Ativan) 2 mg IVPUSH Q4H PRN PRN Reason: Seizures Metoprolol Tartrate (Lopressor) 5 mg IVPUSH Q4H PRN PRN Reason: Tachycardia Miscellaneous Information (Remove Patch) 1 ea TRDERM Q7D [facility] Ondansetron HCl (Zofran) 4 mg IVPUSH Q8H PRN PRN Reason: Nausea Last Admin: 02/25/17 00:35 Dose: 4 mg Pantoprazole Sodium (Protonix) 40 mg PO DAILY PRN PRN Reason: HEARTBURN Saccharomyces Boulardii (Florastor) 250 mg PO BID [facility] Simvastatin (Zocor) 10 mg PO BEDTIME [facility] Last Admin: 02/26/17 22:32 Dose: 10 mg Sodium Chloride (Saline Flush) 10 ml FLUSH ASDIRECTED PRN PRN Reason: Keep Vein Open Timolol Maleate (Timoptic 0.5% Ophth Soln) 0 ml EYEBOTH DAILY [facility] Last Admin: 02/27/17 08:12 Dose: 2 drop Discontinued Medications Bumetanide (Bumex) 0.5 mg IVPUSH ONETIME ONE Stop: 02/26/17 15:39 Last Admin: 02/26/17 15:57 Dose: 0.5 mg Heparin Sodium (Porcine) (Heparin Sodium) 5,000 units SUBCUT Q12HR [facility] Last Admin: 02/24/17 20:33 Dose: 5,000 units Lactated Ringer's (Ringers, Lactated) 1,000 mls @ 100 mls/hr IV ASDIRECTED [facility] Last Admin: 02/25/17 05:58 Dose: 100 mls/hr Ertapenem 1 gm/ Sodium (Chloride) 100 mls @ 100 mls/hr IV DAILY [facility] Last Admin: 02/25/17 10:46 Dose: 100 mls/hr Sodium Chloride (Normal Saline) 500 mls @ 500 mls/hr IV .BOLUS ONE Stop: 02/25/17 14:29 Last Admin: 02/25/17 14:47 Dose: Not Given Lactated Ringer's (Ringers, Lactated) 1,000 mls @ 50 mls/hr IV ASDIRECTED [facility] Last Admin: 02/26/17 01:00 Dose: 50 mls/hr - Exam Quality Assessment: DVT Prophylaxis General: Alert, Oriented, Cooperative, No Acute Distress, Other (resting comfortably in bed) HEENT: Pupils Equal, Pupils Reactive, EOMI, Mucous Membr. Moist/[place] Neck: Supple Lungs: Clear to Auscultation, Normal Respiratory Effort Cardiovascular: Regular Rate, Regular Rhythm GI/Abdominal Exam: Normal Bowel Sounds, No Organomegaly, No Mass, Tender ( minimal diffuse tenderness). No: No Distention (Female) Exam: Deferred Extremities: Normal Inspection, No Pedal Edema Peripheral Pulses: 2+: Dorsalis Pedis (L), Dorsalis Pedis (R) Neurological: No New Focal Deficit Psy/Mental Status: Alert, Normal Affect, Normal Mood Consult PN Assessment/Plan Procedures: Procedures ASSAY OF LIPASE (02/21/17) ASSAY THYROID STIM HORMONE (10/22/16) COMPLETE CBC AUTOMATED (10/22/16) COMPLETE CBC W/AUTO DIFF WBC (02/21/17) COMPREHEN METABOLIC PANEL (02/21/17) CT ABD & PELV W/CONTRAST (02/21/17) DXA BONE DENSITY AXIAL (05/04/15) ELECTROCARDIOGRAM TRACING (02/21/17) EMERGENCY DEPT VISIT (02/21/17) HYDRATE IV INFUSION ADD-ON (02/21/17) LAPAROSCOPY APPENDECTOMY (02/21/17) LIPID PANEL (10/22/16) MANUAL THERAPY 1/> REGIONS (10/03/16) METABOLIC PANEL TOTAL CA (04/23/16) MRI JNT OF LWR EXTRE W/O DYE (09/06/16) OFFICE/OUTPATIENT VISIT EST (10/22/16) OFFICE/OUTPATIENT VISIT NEW (09/04/16) PT EVAL LOW COMPLEX 20 MIN (10/03/16) ROUTINE VENIPUNCTURE (02/21/17) THER/PROPH/DIAG IV INF INIT (02/21/17) THERAPEUTIC EXERCISES (10/03/16) TX/PRO/DX INJ NEW DRUG ADDON (02/21/17) URINALYSIS AUTO W/O SCOPE (10/22/16) URINALYSIS AUTO W/SCOPE (02/21/17) (1) S/P appendectomy SNOMED Code(s): 410987421, 573935749 Code(s): Z90.49 - ACQUIRED ABSENCE OF OTHER SPECIFIED PARTS OF DIGESTIVE TRACT Priority: High Current Visit: Yes (2) Leukocytosis SNOMED Code(s): 801193727, 649325470 Code(s): D72.829 - ELEVATED WHITE BLOOD CELL COUNT, UNSPECIFIED Priority: High Current Visit: Yes (3) HTN (hypertension) SNOMED Code(s): 72805444 Code(s): I10 - ESSENTIAL (PRIMARY) HYPERTENSION Priority: High Current Visit: Yes Qualifiers: Hypertension type: unspecified Qualified Code(s): I10 - Essential (primary ) hypertension Problem List Initiated/Reviewed/Updated: Yes My Orders Last 24 Hours: My Active Orders 02/27/17 11:06 BASIC METABOLIC PANEL,BMP [CHEM] Urgent C-REACTIVE PROTEIN [CHEM] Urgent CBC WITH AUTO DIFF [HEME] Urgent MAGNESIUM [CHEM] Urgent 02/27/17 11:07 LACTIC ACID [CHEM] Routine 02/27/17 11:15 Saccharomyces Boulardii [Florastor] 250 mg PO BID 02/27/17 Breakfast Regular Diet [DIET] Plan: S/P appendectomy with Dr. Welch -Postop constipation now with diarrhea -Dr. Welch is primary addressing these concerns Leukocytosis -See above, treated with IV abx per Dr. Welch Consult to Hospitalist service for HTN HTN: -Clonidine patch -HCTZ PO -B/P controlled now -Asymptomatic -Will recommend f/up with PCP following dc for HTN Other: Ambulate Diet per Dr. Welch DVT/GI prophylax CM/SW for assist with DC planning Patient is Full Code status <Samanta Gibson - Last Filed: 02/27/17 15:34> - Patient Data Vitals - Most Recent: Last Vital Signs Temp 36.6 C 02/27/17 12:20 Pulse 81 02/27/17 12:20 Resp 14 02/27/17 12:20 BP 140/68 02/27/17 12:20 Pulse Ox 96 02/27/17 12:20 I&O - Last 24 Hours: Intake & Output 02/27/17 02/27/17 02/27/17 06:59 14:59 22:59 Intake Total 775 100 Output Total 2450 Balance -1675 100 Lab Results Last 24 Hours: Laboratory Results - last 24 hr 02/26/17 02/27/17 02/27/17 Range/Units 16:00 05:45 12:15 WBC 14.34 H (3.98-10.04) K/mm3 RBC 4.41 (3.98-5.22) M/mm3 Hgb 13.0 (11.2-15.7) gm/L Hct 39.1 (34.1-44.9) % MCV 88.7 (79.4-94.8) fl MCH 29.5 (25.6-32.2) pg MCHC 33.2 (32.2-35.5) g/dl RDW Std Deviation 46.0 (36.4-46.3) fL Plt Count 357 (182-369) K/mm3 MPV 9.7 (9.4-12.3) fl Neut % (Auto) 66.0 (34.0-71.1) % Lymph % (Auto) 14.0 L (19.3-51.7) % Amador % (Auto) 12.4 (4.7-12.5) % Eos % (Auto) 1.8 (0.7-5.8) Baso % (Auto) 2.0 H (0.1-1.2) % Neut # (Auto) 9.46 H (1.56-6.13) K/mm3 Lymph # (Auto) 2.01 (1.18-3.74) K/mm3 Amador # (Auto) 1.78 H (0.24-0.36) K/mm3 Eos # (Auto) 0.26 (0.04-0.36) K/mm3 Baso # (Auto) 0.28 H (0.01-0.08) K/mm3 Manual Slide Review Abnormal smear Sodium (136-145) mEq/L Potassium (3.5-5.1) mEq/L Chloride (98-107) mEq/L Carbon Dioxide (21-32) mEq/L Anion Gap (5-15) BUN (7-18) mg/dL Creatinine (0.55-1.02) mg/dL Est Cr Clr Drug Dosing mL/min Estimated GFR (MDRD) (>60) mL/min BUN/Creatinine Ratio (14-18) Glucose (83-115) mg/dL Lactic Acid (0.4-2.0) mmol/L Calcium (8.5-10.1) mg/dL Magnesium (1.8-2.4) mg/dl C-Reactive Protein 11.2 H* (<1.0) mg/dL C.difficile [id number]-NAP1-B1 Presumptive negative C. difficile Tox (PCR) Negative 02/27/17 02/27/17 Range/Units 12:15 12:15 WBC (3.98-10.04) K/mm3 RBC (3.98-5.22) M/mm3 Hgb (11.2-15.7) gm/L Hct (34.1-44.9) % MCV (79.4-94.8) fl MCH (25.6-32.2) pg MCHC (32.2-35.5) g/dl RDW Std Deviation (36.4-46.3) fL Plt Count (182-369) K/mm3 MPV (9.4-12.3) fl Neut % (Auto) (34.0-71.1) % Lymph % (Auto) (19.3-51.7) % Amador % (Auto) (4.7-12.5) % Eos % (Auto) (0.7-5.8) Baso % (Auto) (0.1-1.2) % Neut # (Auto) (1.56-6.13) K/mm3 Lymph # (Auto) (1.18-3.74) K/mm3 Amador # (Auto) (0.24-0.36) K/mm3 Eos # (Auto) (0.04-0.36) K/mm3 Baso # (Auto) (0.01-0.08) K/mm3 Manual Slide Review Sodium 134 L (136-145) mEq/L Potassium 3.3 L (3.5-5.1) mEq/L Chloride 100 (98-107) mEq/L Carbon Dioxide 25 (21-32) mEq/L Anion Gap 12.3 (5-15) BUN 6 L (7-18) mg/dL Creatinine 1.0 (0.55-1.02) mg/dL Est Cr Clr Drug Dosing 32.23 mL/min Estimated GFR (MDRD) 53 (>60) mL/min BUN/Creatinine Ratio 6.0 L (14-18) Glucose 158 H (83-115) mg/dL Lactic Acid 1.3 (0.4-2.0) mmol/L Calcium 8.7 (8.5-10.1) mg/dL Magnesium 1.8 (1.8-2.4) mg/dl C-Reactive Protein 8.7 H* (<1.0) mg/dL C.difficile 027-NAP1-B1 C. difficile Tox (PCR) Med Orders - Current: Current Medications Al Hydroxide/Mg Hydroxide (Mag-Al Plus) 30 ml PO Q4H PRN PRN Reason: Heartburn Last Admin: 02/24/17 20:32 Dose: 30 ml Artificial Tears (Isopto Tears 0.5% Ophth Soln) 0 ml EYEBOTH ASDIRECTED PRN PRN Reason: Dry Eyes Last Admin: 02/25/17 17:00 Dose: 1 drop Clonidine HCl (Catapres-Tts 1) 0.1 mg TRDERM Q7D [facility] Last Admin: 02/26/17 15:58 Dose: 0.1 mg Famotidine (Pepcid) 20 mg PO DAILY [facility] Last Admin: 02/27/17 13:48 Dose: 20 mg Heparin Sodium (Porcine) (Heparin Sodium) 5,000 units SUBCUT Q12HR [facility] Last Admin: 02/27/17 08:13 Dose: 5,000 units Hydralazine HCl (Apresoline) 20 mg IVPUSH Q4H PRN PRN Reason: Hypertension Hydrochlorothiazide (Hydrochlorothiazide) 12.5 mg PO BIDDIURETIC [facility] Last Admin: 02/27/17 13:46 Dose: 12.5 mg Hydromorphone HCl (Dilaudid) 0.5 mg IVPUSH Q6H PRN PRN Reason: Pain (severe 7-10) Last Admin: 02/26/17 01:55 Dose: 0.5 mg Metronidazole 500 mg/ Premix 100 mls @ 100 mls/hr IV Q8H [facility] Last Admin: 02/27/17 08:13 Dose: 100 mls/hr Cefoxitin Sodium 1 gm/ Premix 50 mls @ 100 mls/hr IV Q8H [facility] Magnesium Sulfate 2 gm/ Premix 50 mls @ 25 mls/hr IV ONETIME ONE Stop: 02/27/17 17:31 Latanoprost (Xalatan 0.005% Ophth Soln) 0 ml EYEBOTH BEDTIME [facility] Last Admin: 02/26/17 22:31 Dose: 1 drop Levothyroxine Sodium (Levothyroxine) 75 mcg PO SuTuWeThSa@0600 [facility] Last Admin: 02/27/17 06:09 Dose: 75 mcg Levothyroxine Sodium (Synthroid) 50 mcg PO MoFr@0600 [facility] Last Admin: 02/24/17 19:47 Dose: Not Given Lorazepam (Ativan) 2 mg IVPUSH Q4H PRN PRN Reason: Seizures Magnesium Oxide (Magnesium Oxide) 400 mg PO DAILY [facility] Last Admin: 02/27/17 13:45 Dose: 400 mg Metoprolol Tartrate (Lopressor) 5 mg IVPUSH Q4H PRN PRN Reason: Tachycardia Miscellaneous Information (Remove Patch) 1 ea TRDERM Q7D [facility] Ondansetron HCl (Zofran) 4 mg IVPUSH Q8H PRN PRN Reason: Nausea Last Admin: 02/25/17 00:35 Dose: 4 mg Pantoprazole Sodium (Protonix) 40 mg PO DAILY PRN PRN Reason: HEARTBURN Potassium Chloride (Potassium Chloride Solution) 40 meq PO BID [facility] Saccharomyces Boulardii (Florastor) 250 mg PO BID [facility] Last Admin: 02/27/17 12:32 Dose: 250 mg Simvastatin (Zocor) 10 mg PO BEDTIME [facility] Last Admin: 02/26/17 22:32 Dose: 10 mg Sodium Chloride (Saline Flush) 10 ml FLUSH ASDIRECTED PRN PRN Reason: Keep Vein Open Timolol Maleate (Timoptic 0.5% Ophth Soln) 0 ml EYEBOTH DAILY [facility] Last Admin: 02/27/17 08:12 Dose: 2 drop Discontinued Medications Bumetanide (Bumex) 0.5 mg IVPUSH ONETIME ONE Stop: 02/26/17 15:39 Last Admin: 02/26/17 15:57 Dose: 0.5 mg Heparin Sodium (Porcine) (Heparin Sodium) 5,000 units SUBCUT Q12HR [facility] Last Admin: 02/24/17 20:33 Dose: 5,000 units Lactated Ringer's (Ringers, Lactated) 1,000 mls @ 100 mls/hr IV ASDIRECTED [facility] Last Admin: 02/25/17 05:58 Dose: 100 mls/hr Ertapenem 1 gm/ Sodium (Chloride) 100 mls @ 100 mls/hr IV DAILY [facility] Last Admin: 02/25/17 10:46 Dose: 100 mls/hr Cefoxitin Sodium 2 gm/ Premix 50 mls @ 100 mls/hr IV Q8H [facility] Last Admin: 02/27/17 10:13 Dose: 100 mls/hr Sodium Chloride (Normal Saline) 500 mls @ 500 mls/hr IV .BOLUS ONE Stop: 02/25/17 14:29 Last Admin: 02/25/17 14:47 Dose: Not Given Lactated Ringer's (Ringers, Lactated) 1,000 mls @ 50 mls/hr IV ASDIRECTED [facility] Last Admin: 02/26/17 01:00 Dose: 50 mls/hr Potassium Chloride (Klor-Con M20) 40 meq PO ONETIME ONE Stop: 02/27/17 12:57 Last Admin: 02/27/17 13:48 Dose: 40 meq Consult PN Assessment/Plan Procedures: Procedures ASSAY OF LIPASE (02/21/17) ASSAY THYROID STIM HORMONE (10/22/16) COMPLETE CBC AUTOMATED (10/22/16) COMPLETE CBC W/AUTO DIFF WBC (02/21/17) COMPREHEN METABOLIC PANEL (02/21/17) CT ABD & PELV W/CONTRAST (02/21/17) DXA BONE DENSITY AXIAL (05/04/15) ELECTROCARDIOGRAM TRACING (02/21/17) EMERGENCY DEPT VISIT (02/21/17) HYDRATE IV INFUSION ADD-ON (02/21/17) LAPAROSCOPY APPENDECTOMY (02/21/17) LIPID PANEL (10/22/16) MANUAL THERAPY 1/> REGIONS (10/03/16) METABOLIC PANEL TOTAL CA (04/23/16) MRI JNT OF LWR EXTRE W/O DYE (09/06/16) OFFICE/OUTPATIENT VISIT EST (10/22/16) OFFICE/OUTPATIENT VISIT NEW (09/04/16) PT EVAL LOW COMPLEX 20 MIN (10/03/16) ROUTINE VENIPUNCTURE (02/21/17) THER/PROPH/DIAG IV INF INIT (02/21/17) THERAPEUTIC EXERCISES (10/03/16) TX/PRO/DX INJ NEW DRUG ADDON (02/21/17) URINALYSIS AUTO W/O SCOPE (10/22/16) URINALYSIS AUTO W/SCOPE (02/21/17) My Orders Last 24 Hours: My Active Orders 02/27/17 15:32 Magnesium Sulfate/Water [Magnesium Sulfate 2 GM in Water 50 ML] 2 gm Premix Bag 1 bag IV ONETIME 02/27/17 21:00 Potassium Chloride [Potassium Chloride Solution] 40 meq PO BID Plan: Improved BP control, will titrate as needed.
--- NOTE | 2017-02-27 11:38 | PCM.SURGPN ---
- General Info Date of Service: 02/27/17 - Review of Systems HEENT: Reports: No Symptoms Gastrointestinal: Reports: Diarrhea - Patient Data Vitals - Most Recent: Last Vital Signs Temp 99.0 F 02/27/17 08:03 Pulse 94 02/27/17 08:03 Resp 14 02/27/17 08:03 BP 126/77 02/27/17 08:03 Pulse Ox 100 02/27/17 08:03 Weight - Most Recent: 59.693 kg I&O - Last 24 Hours: Intake & Output 02/26/17 02/27/17 02/27/17 23:59 07:59 15:59 Intake Total 240 775 100 Output Total 2450 Balance 240 -1675 100 Lab Results Last 24 Hrs: Laboratory Results - last 24 hr 02/26/17 02/27/17 Range/Units 16:00 05:45 C-Reactive Protein 11.2 H* (<1.0) mg/dL C.difficile [id number] Presumptive negative C. difficile Tox (PCR) Negative Med Orders - Current: Current Medications Al Hydroxide/Mg Hydroxide (Mag-Al Plus) 30 ml PO Q4H PRN PRN Reason: Heartburn Last Admin: 02/24/17 20:32 Dose: 30 ml Artificial Tears (Isopto Tears 0.5% Ophth Soln) 0 ml EYEBOTH ASDIRECTED PRN PRN Reason: Dry Eyes Last Admin: 02/25/17 17:00 Dose: 1 drop Clonidine HCl (Catapres-Tts 1) 0.1 mg TRDERM Q7D [facility] Last Admin: 02/26/17 15:58 Dose: 0.1 mg Heparin Sodium (Porcine) (Heparin Sodium) 5,000 units SUBCUT Q12HR [facility] Last Admin: 02/27/17 08:13 Dose: 5,000 units Hydralazine HCl (Apresoline) 20 mg IVPUSH Q4H PRN PRN Reason: Hypertension Hydrochlorothiazide (Hydrochlorothiazide) 12.5 mg PO BIDDIURETIC [facility] Last Admin: 02/27/17 06:08 Dose: 12.5 mg Hydromorphone HCl (Dilaudid) 0.5 mg IVPUSH Q6H PRN PRN Reason: Pain (severe 7-10) Last Admin: 02/26/17 01:55 Dose: 0.5 mg Metronidazole 500 mg/ Premix 100 mls @ 100 mls/hr IV Q8H [facility] Last Admin: 02/27/17 08:13 Dose: 100 mls/hr Cefoxitin Sodium 2 gm/ Premix 50 mls @ 100 mls/hr IV Q8H [facility] Last Admin: 02/27/17 10:13 Dose: 100 mls/hr Latanoprost (Xalatan 0.005% Ophth Soln) 0 ml EYEBOTH BEDTIME [facility] Last Admin: 02/26/17 22:31 Dose: 1 drop Levothyroxine Sodium (Levothyroxine) 75 mcg PO SuTuWeThSa@0600 [facility] Last Admin: 02/27/17 06:09 Dose: 75 mcg Levothyroxine Sodium (Synthroid) 50 mcg PO MoFr@0600 [facility] Last Admin: 02/24/17 19:47 Dose: Not Given Lorazepam (Ativan) 2 mg IVPUSH Q4H PRN PRN Reason: Seizures Metoprolol Tartrate (Lopressor) 5 mg IVPUSH Q4H PRN PRN Reason: Tachycardia Miscellaneous Information (Remove Patch) 1 ea TRDERM Q7D [facility] Ondansetron HCl (Zofran) 4 mg IVPUSH Q8H PRN PRN Reason: Nausea Last Admin: 02/25/17 00:35 Dose: 4 mg Pantoprazole Sodium (Protonix) 40 mg PO DAILY PRN PRN Reason: HEARTBURN Saccharomyces Boulardii (Florastor) 250 mg PO BID [facility] Simvastatin (Zocor) 10 mg PO BEDTIME [facility] Last Admin: 02/26/17 22:32 Dose: 10 mg Sodium Chloride (Saline Flush) 10 ml FLUSH ASDIRECTED PRN PRN Reason: Keep Vein Open Timolol Maleate (Timoptic 0.5% Ophth Soln) 0 ml EYEBOTH DAILY [facility] Last Admin: 02/27/17 08:12 Dose: 2 drop Discontinued Medications Bumetanide (Bumex) 0.5 mg IVPUSH ONETIME ONE Stop: 02/26/17 15:39 Last Admin: 02/26/17 15:57 Dose: 0.5 mg Heparin Sodium (Porcine) (Heparin Sodium) 5,000 units SUBCUT Q12HR [facility] Last Admin: 02/24/17 20:33 Dose: 5,000 units Lactated Ringer's (Ringers, Lactated) 1,000 mls @ 100 mls/hr IV ASDIRECTED [facility] Last Admin: 02/25/17 05:58 Dose: 100 mls/hr Ertapenem 1 gm/ Sodium (Chloride) 100 mls @ 100 mls/hr IV DAILY [facility] Last Admin: 02/25/17 10:46 Dose: 100 mls/hr Sodium Chloride (Normal Saline) 500 mls @ 500 mls/hr IV .BOLUS ONE Stop: 02/25/17 14:29 Last Admin: 02/25/17 14:47 Dose: Not Given Lactated Ringer's (Ringers, Lactated) 1,000 mls @ 50 mls/hr IV ASDIRECTED [facility] Last Admin: 02/26/17 01:00 Dose: 50 mls/hr - Exam GI/Abdominal Exam: Normal Bowel Sounds, Soft, Non-Tender, No Organomegaly, No Distention, No Abnormal Bruit, No Mass, Pelvis Stable - Problem List Review Problem List Initiated/Reviewed/Updated: Yes - My Orders Last 24 Hours: Active Orders 24 hr Category Date Time Status Notify Provider Consults [RC] ASDIRECTED Care 02/26/17 15:36 Active Consult to Physician [CONS] Routine Cons 02/26/17 15:35 Active Regular Diet [DIET] Diet 02/27/17 Breakfast Active BASIC METABOLIC PANEL,BMP [CHEM] Urgent Lab 02/27/17 11:06 Ordered C-REACTIVE PROTEIN [CHEM] Urgent Lab 02/27/17 11:06 Ordered CBC W/O DIFF,HEMOGRAM [HEME] Routine Lab 02/28/17 07:00 Ordered CBC WITH AUTO DIFF [HEME] Urgent Lab 02/27/17 11:06 Ordered CREATININE W/GFR [CHEM] Routine Lab 02/28/17 07:00 Ordered LACTIC ACID [CHEM] Routine Lab 02/27/17 11:07 Ordered MAGNESIUM [CHEM] Urgent Lab 02/27/17 11:06 Ordered Hydrochlorothiazide Med 02/26/17 21:00 Active 12.5 mg PO BIDDIURETIC LORazepam [Ativan] Med 02/26/17 15:38 Active 2 mg IVPUSH Q4H PRN Metoprolol Tartrate [Lopressor] Med 02/26/17 15:38 Active 5 mg IVPUSH Q4H PRN Remove Patch Med 03/05/17 16:00 Active 1 ea TRDERM Q7D Saccharomyces Boulardii [Florastor] Med 02/27/17 11:15 Active 250 mg PO BID Sodium Chloride 0.9% [Saline Flush] Med 02/26/17 14:23 Active 10 ml FLUSH ASDIRECTED PRN cloNIDine [Catapres-TTS 1] Med 02/26/17 16:00 Active 0.1 mg TRDERM Q7D hydrALAZINE [Apresoline] Med 02/26/17 15:38 Active 20 mg IVPUSH Q4H PRN Convert IV to Saline Lock [OM.PC] Routine Oth 02/26/17 14:23 Ordered Medication Orders Al Hydroxide/Mg Hydroxide (Mag-Al Plus) 30 ml PO Q4H PRN PRN Reason: Heartburn Last Admin: 02/24/17 20:32 Dose: 30 ml Artificial Tears (Isopto Tears 0.5% Ophth Soln) 0 ml EYEBOTH ASDIRECTED PRN PRN Reason: Dry Eyes Last Admin: 02/25/17 17:00 Dose: 1 drop Clonidine HCl (Catapres-Tts 1) 0.1 mg TRDERM Q7D [facility] Last Admin: 02/26/17 15:58 Dose: 0.1 mg Heparin Sodium (Porcine) (Heparin Sodium) 5,000 units SUBCUT Q12HR [facility] Last Admin: 02/27/17 08:13 Dose: 5,000 units Admin: 02/26/17 22:32 Dose: 5,000 units Admin: 02/26/17 09:23 Dose: 5,000 units Admin: 02/25/17 20:35 Dose: 5,000 units Admin: 02/25/17 08:24 Dose: 5,000 units Hydralazine HCl (Apresoline) 20 mg IVPUSH Q4H PRN PRN Reason: Hypertension Hydrochlorothiazide (Hydrochlorothiazide) 12.5 mg PO BIDDIURETIC [facility] Last Admin: 02/27/17 06:08 Dose: 12.5 mg Admin: 02/26/17 22:32 Dose: 12.5 mg Hydromorphone HCl (Dilaudid) 0.5 mg IVPUSH Q6H PRN PRN Reason: Pain (severe 7-10) Last Admin: 02/26/17 01:55 Dose: 0.5 mg Admin: 02/25/17 00:35 Dose: 0.5 mg Metronidazole 500 mg/ Premix 100 mls @ 100 mls/hr IV Q8H [facility] Last Admin: 02/27/17 08:13 Dose: 100 mls/hr Infusion: 02/27/17 00:20 Dose: 100 mls/hr Admin: 02/26/17 23:20 Dose: 100 mls/hr Infusion: 02/26/17 17:04 Dose: 100 mls/hr Admin: 02/26/17 16:04 Dose: 100 mls/hr Infusion: 02/26/17 10:58 Dose: 100 mls/hr Admin: 02/26/17 09:58 Dose: 100 mls/hr Infusion: 02/26/17 00:42 Dose: 100 mls/hr Admin: 02/25/17 23:42 Dose: 100 mls/hr Infusion: 02/25/17 17:55 Dose: 100 mls/hr Admin: 02/25/17 16:55 Dose: 100 mls/hr Infusion: 02/25/17 09:25 Dose: 100 mls/hr Admin: 02/25/17 08:25 Dose: 100 mls/hr Infusion: 02/25/17 01:28 Dose: 100 mls/hr Admin: 02/25/17 00:28 Dose: 100 mls/hr Cefoxitin Sodium 2 gm/ Premix 50 mls @ 100 mls/hr IV Q8H [facility] Last Admin: 02/27/17 10:13 Dose: 100 mls/hr Infusion: 02/27/17 02:04 Dose: 100 mls/hr Admin: 02/27/17 01:34 Dose: 100 mls/hr Infusion: 02/26/17 18:56 Dose: 100 mls/hr Admin: 02/26/17 18:26 Dose: 100 mls/hr Infusion: 02/26/17 09:51 Dose: 100 mls/hr Admin: 02/26/17 09:21 Dose: 100 mls/hr Latanoprost (Xalatan 0.005% Ophth Soln) 0 ml EYEBOTH BEDTIME [facility] Last Admin: 02/26/17 22:31 Dose: 1 drop Admin: 02/25/17 20:36 Dose: 1 drop Admin: 02/24/17 20:32 Dose: 1 drop Levothyroxine Sodium (Levothyroxine) 75 mcg PO SuTuWeThSa@0600 [facility] Last Admin: 02/27/17 06:09 Dose: 75 mcg Admin: 02/26/17 05:01 Dose: 75 mcg Admin: 02/25/17 05:57 Dose: 75 mcg Levothyroxine Sodium (Synthroid) 50 mcg PO MoFr@0600 [facility] Last Admin: 02/24/17 19:47 Dose: Lorazepam (Ativan) 2 mg IVPUSH Q4H PRN PRN Reason: Seizures Metoprolol Tartrate (Lopressor) 5 mg IVPUSH Q4H PRN PRN Reason: Tachycardia Miscellaneous Information (Remove Patch) 1 ea TRDERM Q7D [facility] Ondansetron HCl (Zofran) 4 mg IVPUSH Q8H PRN PRN Reason: Nausea Last Admin: 02/25/17 00:35 Dose: 4 mg Pantoprazole Sodium (Protonix) 40 mg PO DAILY PRN PRN Reason: HEARTBURN Saccharomyces Boulardii (Florastor) 250 mg PO BID [facility] Simvastatin (Zocor) 10 mg PO BEDTIME [facility] Last Admin: 02/26/17 22:32 Dose: 10 mg Admin: 02/25/17 20:35 Dose: 10 mg Admin: 02/24/17 20:33 Dose: 10 mg Sodium Chloride (Saline Flush) 10 ml FLUSH ASDIRECTED PRN PRN Reason: Keep Vein Open Timolol Maleate (Timoptic 0.5% Ophth Soln) 0 ml EYEBOTH DAILY [facility] Last Admin: 02/27/17 08:12 Dose: 2 drop Admin: 02/26/17 09:25 Dose: 2 drop Admin: 02/25/17 08:32 Dose: 1 drop - Plan Plan (Free Text/Narrative):: pt improved no abdominal pain and good appetite ass improved plan give probiotics and check wbc
[2017-02-27] MEDS: Saccharomyces Boulardii (Probiotic) 250 MG Cap PO SCH ×2 (12:32→21:49)
[2017-02-27] MEDS ORDERED: Potassium Chloride 20 MEQ Tab.ER PO ONE (12:56)
[2017-02-27] MEDS: Magnesium Oxide 400 MG Tab PO SCH (13:45)
[2017-02-27] MEDS: Famotidine 20 MG Tab PO SCH (13:48)
[2017-02-27] MEDS ORDERED: Magnesium Sulfate/Water 2 GM in Premix Bag 1 BAG IV ONE (15:32)
[2017-02-27] MEDS: cefOXitin 1 GM in Premix Bag 1 BAG IV SCH (17:18)
[2017-02-27] MEDS: Potassium Chloride 10% 20 MEQ/15 ML Soln 15 ML UD Cup PO SCH (21:48)
[2017-02-27] MEDS: Simvastatin 10 MG Tab PO SCH (21:49)
[2017-02-27] MEDS: Latanoprost 0.005% Ophth Soln 2.5 ML Bottle EYEBOTH SCH (21:50)
[2017-02-28] MEDS: metroNIDAZOLE/Normal Saline 500 MG in Premix Bag 1 BAG IV SCH ×2 (00:59→08:02)
[2017-02-28] MEDS: cefOXitin 1 GM in Premix Bag 1 BAG IV SCH ×2 (01:35→09:11)
[2017-02-28] MEDS: Levothyroxine 50 MCG Tab PO SCH (06:19)
[2017-02-28] MEDS: Hydrochlorothiazide 12.5 MG Cap PO SCH ×2 (06:19→14:12)
[2017-02-28] MEDS: Saccharomyces Boulardii (Probiotic) 250 MG Cap PO SCH (08:02)
[2017-02-28] MEDS: Heparin Sodium 5,000 Units/ML Vial SUBCUT SCH (08:03)
[2017-02-28] MEDS: Famotidine 20 MG Tab PO SCH (08:03)
[2017-02-28] MEDS: Potassium Chloride 10% 20 MEQ/15 ML Soln 15 ML UD Cup PO SCH (08:03)
[2017-02-28] MEDS: Timolol Maleate 0.5% Ophth Soln 5 ML Bottle EYEBOTH SCH (08:03)
[2017-02-28] MEDS: Magnesium Oxide 400 MG Tab PO SCH (08:03)
[2017-02-28] MEDS ORDERED: Iopamidol 612 MG/ML 100 ML Bottle IVPUSH ONE (10:41)
[2017-02-28] MEDS ORDERED: Sodium Chloride 0.9% 10 ML Syringe FLUSH PRN (10:41)
[2017-02-28] MEDS ORDERED: Diatrizoate Meglumine/Diatrizoate Sodium 37% 120 ML Bottle PO ONE (10:41)
--- NOTE | 2017-02-28 12:24 | CT ---
CT abdomen and pelvis Technique: Multiple axial sections were obtained from above the dome of the diaphragm inferiorly through the pubic symphysis. Intravenous and oral contrast has been given. Reconstructed coronal and sagittal images were obtained. Comparison: Previous CT abdomen and pelvis exam of 02/21/17. Findings: Low-density fluid collection is identified within the right lower quadrant. This measures about 2.4 cm in size and is compatible with an abscess. Second adjacent more elongated fluid collection is seen which contains several surgical clips. This is compatible with additional abscess measuring 3.8 cm x 1.3 cm. Minimal soft tissue density within the lower pelvis is seen possibly due to additional pus. Other findings: Visualized lung bases are clear. Liver shows no focal parenchymal abnormality. Gallbladder shows no calcified gallstones. Spleen appears within normal limits. Adrenal glands show no nodule. Kidneys show symmetric contrast enhancement without hydronephrosis or mass. Pancreas is within normal limits. Aorta shows atherosclerotic change without aneurysm. No retroperitoneal adenopathy or mesenteric abnormalities are seen. No pelvic mass or adenopathy is seen. Bone window settings were reviewed showing scattered degenerative change within the spine. Impression: 1. 2 small right lower pelvic abscesses as described above. Minimal pus likely present within the deep posterior pelvis. 2. Other incidental findings as noted above. Diagnostic code #5
[2017-02-28 12:48] VITALS: BP 145/72
--- NOTE | 2017-02-28 14:03 | PCM.SURGPN ---
- General Info Date of Service: 02/28/17 - Patient Data Vitals - Most Recent: Last Vital Signs Temp 98.2 F 02/28/17 12:18 Pulse 74 02/28/17 12:18 Resp 12 02/28/17 12:18 BP 145/72 H 02/28/17 12:18 Pulse Ox 100 02/28/17 12:18 Weight - Most Recent: 58.06 kg I&O - Last 24 Hours: Intake & Output 02/27/17 02/28/17 02/28/17 23:59 07:59 15:59 Intake Total 650 725 210 Output Total 1800 Balance 650 -1075 210 Lab Results Last 24 Hrs: Laboratory Results - last 24 hr 02/27/17 02/28/17 02/28/17 Range/Units 12:15 05:45 05:45 WBC 14.34 H 15.80 H (3.98-10.04) K/mm3 RBC 4.41 4.44 (3.98-5.22) M/mm3 Hgb 13.0 13.1 (11.2-15.7) gm/L Hct 39.1 40.0 (34.1-44.9) % MCV 88.7 90.1 (79.4-94.8) fl MCH 29.5 29.5 (25.6-32.2) pg MCHC 33.2 32.8 (32.2-35.5) g/dl RDW Std Deviation 46.0 47.2 H (36.4-46.3) fL Plt Count 357 396 H (182-369) K/mm3 MPV 9.7 9.8 (9.4-12.3) fl Neut % (Auto) 66.0 (34.0-71.1) % Lymph % (Auto) 14.0 L (19.3-51.7) % [place] % (Auto) 12.4 (4.7-12.5) % Eos % (Auto) 1.8 (0.7-5.8) Baso % (Auto) 2.0 H (0.1-1.2) % Neut # (Auto) 9.46 H (1.56-6.13) K/mm3 Lymph # (Auto) 2.01 (1.18-3.74) K/mm3 [place] # (Auto) 1.78 H (0.24-0.36) K/mm3 Eos # (Auto) 0.26 (0.04-0.36) K/mm3 Baso # (Auto) 0.28 H (0.01-0.08) K/mm3 Manual Slide Review Abnormal smear D-Dimer, Quantitative (0.19-0.59) mg/L Sodium 137 (136-145) mEq/L Potassium 4.4 (3.5-5.1) mEq/L Chloride 104 (98-107) mEq/L Carbon Dioxide 23 (21-32) mEq/L Anion Gap 14.4 (5-15) BUN 7 (7-18) mg/dL Creatinine 0.8 (0.55-1.02) mg/dL Est Cr Clr Drug Dosing 40.29 mL/min Estimated GFR (MDRD) > 60 (>60) mL/min BUN/Creatinine Ratio 8.8 L (14-18) Glucose 105 (83-115) mg/dL Calcium 8.5 (8.5-10.1) mg/dL Magnesium 2.2 (1.8-2.4) mg/dl 02/28/17 Range/Units 13:20 WBC (3.98-10.04) K/mm3 RBC (3.98-5.22) M/mm3 Hgb (11.2-15.7) gm/L Hct (34.1-44.9) % MCV (79.4-94.8) fl MCH (25.6-32.2) pg MCHC (32.2-35.5) g/dl RDW Std Deviation (36.4-46.3) fL Plt Count (182-369) K/mm3 MPV (9.4-12.3) fl Neut % (Auto) (34.0-71.1) % Lymph % (Auto) (19.3-51.7) % [place] % (Auto) (4.7-12.5) % Eos % (Auto) (0.7-5.8) Baso % (Auto) (0.1-1.2) % Neut # (Auto) (1.56-6.13) K/mm3 Lymph # (Auto) (1.18-3.74) K/mm3 [place] # (Auto) (0.24-0.36) K/mm3 Eos # (Auto) (0.04-0.36) K/mm3 Baso # (Auto) (0.01-0.08) K/mm3 Manual Slide Review D-Dimer, Quantitative 4.20 H (0.19-0.59) mg/L Sodium (136-145) mEq/L Potassium (3.5-5.1) mEq/L Chloride (98-107) mEq/L Carbon Dioxide (21-32) mEq/L Anion Gap (5-15) BUN (7-18) mg/dL Creatinine (0.55-1.02) mg/dL Est Cr Clr Drug Dosing mL/min Estimated GFR (MDRD) (>60) mL/min BUN/Creatinine Ratio (14-18) Glucose (83-115) mg/dL Calcium (8.5-10.1) mg/dL Magnesium (1.8-2.4) mg/dl Med Orders - Current: Current Medications Al Hydroxide/Mg Hydroxide (Mag-Al Plus) 30 ml PO Q4H PRN PRN Reason: Heartburn Last Admin: 02/24/17 20:32 Dose: 30 ml Artificial Tears (Isopto Tears 0.5% Ophth Soln) 0 ml EYEBOTH ASDIRECTED PRN PRN Reason: Dry Eyes Last Admin: 02/25/17 17:00 Dose: 1 drop Famotidine (Pepcid) 20 mg PO DAILY [facility] Last Admin: 02/28/17 08:03 Dose: 20 mg Heparin Sodium (Porcine) (Heparin Sodium) 5,000 units SUBCUT Q12HR [facility] Last Admin: 02/28/17 08:03 Dose: 5,000 units Hydralazine HCl (Apresoline) 20 mg IVPUSH Q4H PRN PRN Reason: Hypertension Hydrochlorothiazide (Hydrochlorothiazide) 12.5 mg PO BIDDIURETIC [facility] Last Admin: 02/28/17 06:19 Dose: 12.5 mg Hydromorphone HCl (Dilaudid) 0.5 mg IVPUSH Q6H PRN PRN Reason: Pain (severe 7-10) Last Admin: 02/26/17 01:55 Dose: 0.5 mg Metronidazole 500 mg/ Premix 100 mls @ 100 mls/hr IV Q8H [facility] Last Admin: 02/28/17 08:02 Dose: 100 mls/hr Cefoxitin Sodium 1 gm/ Premix 50 mls @ 100 mls/hr IV Q8H [facility] Last Admin: 02/28/17 09:11 Dose: 100 mls/hr Latanoprost (Xalatan 0.005% Ophth Soln) 0 ml EYEBOTH BEDTIME [facility] Last Admin: 02/27/17 21:50 Dose: 1 drop Levothyroxine Sodium (Levothyroxine) 75 mcg PO SuTuWeThSa@0600 [facility] Last Admin: 02/27/17 06:09 Dose: 75 mcg Levothyroxine Sodium (Synthroid) 50 mcg PO MoFr@0600 [facility] Last Admin: 02/28/17 06:19 Dose: 50 mcg Lorazepam (Ativan) 2 mg IVPUSH Q4H PRN PRN Reason: Seizures Losartan Potassium (Cozaar) 25 mg PO BID [facility] Magnesium Oxide (Magnesium Oxide) 400 mg PO DAILY [facility] Last Admin: 02/28/17 08:03 Dose: 400 mg Metoprolol Tartrate (Lopressor) 5 mg IVPUSH Q4H PRN PRN Reason: Tachycardia Miscellaneous Information (Remove Patch) 1 ea TRDERM Q7D [facility] Last Admin: 02/28/17 10:40 Dose: 1 ea Ondansetron HCl (Zofran) 4 mg IVPUSH Q8H PRN PRN Reason: Nausea Last Admin: 02/25/17 00:35 Dose: 4 mg Pantoprazole Sodium (Protonix) 40 mg PO DAILY PRN PRN Reason: HEARTBURN Potassium Chloride (Potassium Chloride Solution) 40 meq PO BID [facility] Stop: 02/28/17 21:01 Last Admin: 02/28/17 08:03 Dose: 40 meq Saccharomyces Boulardii (Florastor) 250 mg PO BID [facility] Last Admin: 02/28/17 08:02 Dose: 250 mg Simvastatin (Zocor) 10 mg PO BEDTIME [facility] Last Admin: 02/27/17 21:49 Dose: 10 mg Sodium Chloride (Saline Flush) 10 ml FLUSH ASDIRECTED PRN PRN Reason: Keep Vein Open Timolol Maleate (Timoptic 0.5% Ophth Soln) 0 ml EYEBOTH DAILY [facility] Last Admin: 02/28/17 08:03 Dose: 2 drop Discontinued Medications Bumetanide (Bumex) 0.5 mg IVPUSH ONETIME ONE Stop: 02/26/17 15:39 Last Admin: 02/26/17 15:57 Dose: 0.5 mg Clonidine HCl (Catapres-Tts 1) 0.1 mg TRDERM Q7D [facility] Last Admin: 02/26/17 15:58 Dose: 0.1 mg Diatrizoate Meglum/Diatrizoate Sod (Gastrografin 37%) 120 ml PO ONETIME ONE Stop: 02/28/17 10:42 Last Admin: 02/28/17 12:00 Dose: 90 ml Heparin Sodium (Porcine) (Heparin Sodium) 5,000 units SUBCUT Q12HR [facility] Last Admin: 02/24/17 20:33 Dose: 5,000 units Lactated Ringer's (Ringers, Lactated) 1,000 mls @ 100 mls/hr IV ASDIRECTED [facility] Last Admin: 02/25/17 05:58 Dose: 100 mls/hr Ertapenem 1 gm/ Sodium (Chloride) 100 mls @ 100 mls/hr IV DAILY [facility] Last Admin: 02/25/17 10:46 Dose: 100 mls/hr Cefoxitin Sodium 2 gm/ Premix 50 mls @ 100 mls/hr IV Q8H [facility] Last Admin: 02/27/17 10:13 Dose: 100 mls/hr Sodium Chloride (Normal Saline) 500 mls @ 500 mls/hr IV .BOLUS ONE Stop: 02/25/17 14:29 Last Admin: 02/25/17 14:47 Dose: Not Given Lactated Ringer's (Ringers, Lactated) 1,000 mls [facility] Admin: 02/26/17 01:00 Dose: 50 mls/hr Magnesium Sulfate 2 gm/ Premix 50 mls @ 25 mls/hr IV ONETIME ONE Stop: 02/27/17 17:31 Last Admin: 02/27/17 17:54 Dose: 25 mls/hr Iopamidol (Isovue-300 (61%)) 100 ml IVPUSH ONETIME ONE Stop: 02/28/17 10:42 Last Admin: 02/28/17 12:00 Dose: 90 ml Potassium Chloride (Klor-Con M20) 40 meq PO ONETIME ONE Stop: 02/27/17 12:57 Last Admin: 02/27/17 13:48 Dose: 40 meq Sodium Chloride (Saline Flush) 10 ml FLUSH ONETIME PRN PRN Reason: IV FLUSH Stop: 02/28/17 12:30 Last Admin: 02/28/17 12:01 Dose: 10 ml - Problem List Review Problem List Initiated/Reviewed/Updated: Yes - My Orders Last 24 Hours: Active Orders 24 hr Category Date Time Status Ready for Discharge [RC] PER UNIT ROUTINE Care 02/28/17 14:01 Ordered Famotidine [Pepcid] Med 02/27/17 13:15 Active 20 mg PO DAILY Losartan [Cozaar] Med 02/28/17 21:00 Active 25 mg PO BID Potassium Chloride [Potassium Chloride Solution] Med 02/27/17 21:00 Active 40 meq PO BID Remove Patch Med 03/05/17 16:00 Active 1 ea TRDERM Q7D cefOXitin [Mefoxin in Dextrose,Iso-Osm 1 GM/50 ML] 1 gm Med 02/27/17 18:00 Active Premix Bag 1 bag IV Q8H Medication Orders Al Hydroxide/Mg Hydroxide (Mag-Al Plus) 30 ml PO Q4H PRN PRN Reason: Heartburn Last Admin: 02/24/17 20:32 Dose: 30 ml Artificial Tears (Isopto Tears 0.5% Ophth Soln) 0 ml EYEBOTH ASDIRECTED PRN PRN Reason: Dry Eyes Last Admin: 02/25/17 17:00 Dose: 1 drop Famotidine (Pepcid) 20 mg PO DAILY [facility] Last Admin: 02/28/17 08:03 Dose: 20 mg Admin: 02/27/17 13:48 Dose: 20 mg Heparin Sodium (Porcine) (Heparin Sodium) 5,000 units SUBCUT Q12HR [facility] Last Admin: 02/28/17 08:03 Dose: 5,000 units Admin: 02/27/17 21:50 Dose: 5,000 units Admin: 02/27/17 08:13 Dose: 5,000 units Admin: 02/26/17 22:32 Dose: 5,000 units Admin: 02/26/17 09:23 Dose: 5,000 units Admin: 02/25/17 20:35 Dose: 5,000 units Admin: 02/25/17 08:24 Dose: 5,000 units Hydralazine HCl (Apresoline) 20 mg IVPUSH Q4H PRN PRN Reason: Hypertension Hydrochlorothiazide (Hydrochlorothiazide) 12.5 mg PO BIDDIURETIC [facility] Last Admin: 02/28/17 06:19 Dose: 12.5 mg Admin: 02/27/17 13:46 Dose: 12.5 mg Admin: 02/27/17 06:08 Dose: 12.5 mg Admin: 02/26/17 22:32 Dose: 12.5 mg Hydromorphone HCl (Dilaudid) 0.5 mg IVPUSH Q6H PRN PRN Reason: Pain (severe 7-10) Last Admin: 02/26/17 01:55 Dose: 0.5 mg Admin: 02/25/17 00:35 Dose: 0.5 mg Metronidazole 500 mg/ Premix 100 mls @ 100 mls/hr IV Q8H [facility] Last Admin: 02/28/17 08:02 Dose: 100 mls/hr Infusion: 02/28/17 01:59 Dose: 100 mls/hr Admin: 02/28/17 00:59 Dose: 100 mls/hr Infusion: 02/27/17 17:09 Dose: 100 mls/hr Admin: 02/27/17 16:09 Dose: 100 mls/hr Infusion: 02/27/17 09:13 Dose: 100 mls/hr Admin: 02/27/17 08:13 Dose: 100 mls/hr Infusion: 02/27/17 00:20 Dose: 100 mls/hr Admin: 02/26/17 23:20 Dose: 100 mls/hr Infusion: 02/26/17 17:04 Dose: 100 mls/hr Admin: 02/26/17 16:04 Dose: 100 mls/hr Infusion: 02/26/17 10:58 Dose: 100 mls/hr Admin: 02/26/17 09:58 Dose: 100 mls/hr Infusion: 02/26/17 00:42 Dose: 100 mls/hr Admin: 02/25/17 23:42 Dose: 100 mls/hr Infusion: 02/25/17 17:55 Dose: 100 mls/hr Admin: 02/25/17 16:55 Dose: 100 mls/hr Infusion: 02/25/17 09:25 Dose: 100 mls/hr Admin: 02/25/17 08:25 Dose: 100 mls/hr Infusion: 02/25/17 01:28 Dose: 100 mls/hr Admin: 02/25/17 00:28 Dose: 100 mls/hr Cefoxitin Sodium 1 gm/ Premix 50 mls @ 100 mls/hr IV Q8H [facility] Last Admin: 02/28/17 09:11 Dose: 100 mls/hr Infusion: 02/28/17 02:05 Dose: 100 mls/hr Admin: 02/28/17 01:35 Dose: 100 mls/hr Infusion: 02/27/17 17:48 Dose: 100 mls/hr Admin: 02/27/17 17:18 Dose: 100 mls/hr Latanoprost (Xalatan 0.005% Oph Soln) 0 ml EYEBOTH BEDTIME [facility] Last Admin: 02/27/17 21:50 Dose: 1 drop Admin: 02/26/17 22:31 Dose: 1 drop Admin: 02/25/17 20:36 Dose: 1 drop Admin: 02/24/17 20:32 Dose: 1 drop Levothyroxine Sodium (Levothyroxine) 75 mcg PO [email or web address] [facility] Last Admin: 02/27/17 06:09 Dose: 75 mcg Admin: 02/26/17 05:01 Dose: 75 mcg Admin: 02/25/17 05:57 Dose: 75 mcg Levothyroxine Sodium (Synthroid) 50 mcg PO [email or web address] [facility] Last Admin: 02/28/17 06:19 Dose: 50 mcg Admin: 02/24/17 19:47 Dose: Lorazepam (Ativan) 2 mg IVPUSH Q4H PRN PRN Reason: Seizures Losartan Potassium (Cozaar) 25 mg PO BID [facility] Magnesium Oxide (Magnesium Oxide) 400 mg PO DAILY [facility] Last Admin: 02/28/17 08:03 Dose: 400 mg Admin: 02/27/17 13:45 Dose: 400 mg Metoprolol Tartrate (Lopressor) 5 mg IVPUSH Q4H PRN PRN Reason: Tachycardia Miscellaneous Information (Remove Patch) 1 ea TRDERM Q7D [facility] Last Admin: 02/28/17 10:40 Dose: 1 ea Ondansetron HCl (Zofran) 4 mg IVPUSH Q8H PRN PRN Reason: Nausea Last Admin: 02/25/17 00:35 Dose: 4 mg Pantoprazole Sodium (Protonix) 40 mg PO DAILY PRN PRN Reason: HEARTBURN Potassium Chloride (Potassium Chloride Solution) 40 meq PO BID [facility] Stop: 02/28/17 21:01 Last Admin: 02/28/17 08:03 Dose: 40 meq Admin: 02/27/17 21:48 Dose: 40 meq Saccharomyces Boulardii (Florastor) 250 mg PO BID [facility] Last Admin: 02/28/17 08:02 Dose: 250 mg Admin: 02/27/17 21:49 Dose: 250 mg Admin: 02/27/17 12:32 Dose: 250 mg Simvastatin (Zocor) 10 mg PO BEDTIME [facility] Last Admin: 02/27/17 21:49 Dose: 10 mg Admin: 02/26/17 22:32 Dose: 10 mg Admin: 02/25/17 20:35 Dose: 10 mg Admin: 02/24/17 20:33 Dose: 10 mg Sodium Chloride (Saline Flush) 10 ml FLUSH ASDIRECTED PRN PRN Reason: Keep Vein Open Timolol Maleate (Timoptic 0.5% Ophth Soln) 0 ml EYEBOTH DAILY [facility] Last Admin: 02/28/17 08:03 Dose: 2 drop Admin: 02/27/17 08:12 Dose: 2 drop Admin: 02/26/17 09:25 Dose: 2 drop Admin: 02/25/17 08:32 Dose: 1 drop - Plan Plan (Free Text/Narrative):: pt transfered because of appendicular abscess for drainage of abscess to Dr. Rehan sarkar summary dictated
[2017-02-28] MEDS ORDERED: Lactated Ringers 1,000 ML IV SCH (14:15)
--- NOTE | 2017-02-28 19:19 | PCM.PN ---
- General Info Date of Service: 02/28/17 Functional Status: Reports: Pain Controlled, Tolerating Diet, Ambulating, Urinating - Review of Systems General: Reports: No Symptoms HEENT: Reports: No Symptoms Pulmonary: Reports: No Symptoms Cardiovascular: Reports: No Symptoms Gastrointestinal: Reports: No Symptoms Genitourinary: Reports: No Symptoms Musculoskeletal: Reports: No Symptoms Skin: Reports: No Symptoms Neurological: Reports: No Symptoms Psychiatric: Reports: No Symptoms - Patient Data Vitals - Most Recent: Last Vital Signs Temp 36.8 C 02/28/17 12:18 Pulse 74 02/28/17 12:18 Resp 12 02/28/17 12:18 BP 145/72 H 02/28/17 12:18 Pulse Ox 100 02/28/17 12:18 Weight - Most Recent: 58.06 kg I&O - Last 24 Hours: Intake & Output 02/28/17 02/28/17 02/28/17 06:59 14:59 22:59 Intake Total 725 990 Output Total 1800 1250 Balance -1075 -260 Lab Results Last 24 Hours: Laboratory Results - last 24 hr 02/28/17 02/28/17 02/28/17 Range/Units 05:45 05:45 13:20 WBC 15.80 H (3.98-10.04) K/mm3 RBC 4.44 (3.98-5.22) M/mm3 Hgb 13.1 (11.2-15.7) gm/L Hct 40.0 (34.1-44.9) % MCV 90.1 (79.4-94.8) fl MCH 29.5 (25.6-32.2) pg MCHC 32.8 (32.2-35.5) g/dl RDW Std Deviation 47.2 H (36.4-46.3) fL Plt Count 396 H (182-369) K/mm3 MPV 9.8 (9.4-12.3) fl D-Dimer, Quantitative 4.20 H (0.19-0.59) mg/L Sodium 137 (136-145) mEq/L Potassium 4.4 (3.5-5.1) mEq/L Chloride 104 (98-107) mEq/L Carbon Dioxide 23 (21-32) mEq/L Anion Gap 14.4 (5-15) BUN 7 (7-18) mg/dL Creatinine 0.8 (0.55-1.02) mg/dL Est Cr Clr Drug Dosing 40.29 mL/min Estimated GFR (MDRD) > 60 (>60) mL/min BUN/Creatinine Ratio 8.8 L (14-18) Glucose 105 (83-115) mg/dL Calcium 8.5 (8.5-10.1) mg/dL Magnesium 2.2 (1.8-2.4) mg/dl Med Orders - Current: Current Medications Discontinued Medications Al Hydroxide/Mg Hydroxide (Mag-Al Plus) 30 ml PO Q4H PRN PRN Reason: Heartburn Last Admin: 02/24/17 20:32 Dose: 30 ml Artificial Tears (Isopto Tears 0.5% Ophth Soln) 0 ml EYEBOTH ASDIRECTED PRN PRN Reason: Dry Eyes Last Admin: 02/25/17 17:00 Dose: 1 drop Bumetanide (Bumex) 0.5 mg IVPUSH ONETIME ONE Stop: 02/26/17 15:39 Last Admin: 02/26/17 15:57 Dose: 0.5 mg Clonidine HCl (Catapres-Tts 1) 0.1 mg TRDERM Q7D [facility] Last Admin: 02/26/17 15:58 Dose: 0.1 mg Diatrizoate Meglum/Diatrizoate Sod (Gastrografin 37%) 120 ml PO ONETIME ONE Stop: 02/28/17 10:42 Last Admin: 02/28/17 12:00 Dose: 90 ml Famotidine (Pepcid) 20 mg PO DAILY [facility] Last Admin: 02/28/17 08:03 Dose: 20 mg Heparin Sodium (Porcine) (Heparin Sodium) 5,000 units SUBCUT Q12HR [facility] Last Admin: 02/24/17 20:33 Dose: 5,000 units Heparin Sodium (Porcine) (Heparin Sodium) 5,000 units SUBCUT Q12HR [facility] Last Admin: 02/28/17 08:03 Dose: 5,000 units Hydralazine HCl (Apresoline) 20 mg IVPUSH Q4H PRN PRN Reason: Hypertension Hydrochlorothiazide (Hydrochlorothiazide) 12.5 mg PO BIDDIURETIC [facility] Last Admin: 02/28/17 14:12 Dose: 12.5 mg Hydromorphone HCl (Dilaudid) 0.5 mg IVPUSH Q6H PRN PRN Reason: Pain (severe 7-10) Last Admin: 02/26/17 01:55 Dose: 0.5 mg Lactated Ringer's (Ringers, Lactated) 1,000 mls @ 100 mls/hr IV ASDIRECTED [facility] Last Admin: 02/25/17 05:58 Dose: 100 mls/hr Ertapenem 1 gm/ Sodium (Chloride) 100 mls @ 100 mls/hr IV DAILY [facility] Last Admin: 02/25/17 10:46 Dose: 100 mls/hr Metronidazole 500 mg/ Premix 100 mls @ 100 mls/hr IV Q8H [facility] Last Admin: 02/28/17 08:02 Dose: 100 mls/hr Cefoxitin Sodium 2 gm/ Premix 50 mls @ 100 mls/hr IV Q8H [facility] Last Admin: 02/27/17 10:13 Dose: 100 mls/hr Sodium Chloride (Normal Saline) 500 mls @ 500 mls/hr IV .BOLUS ONE Stop: 02/25/17 14:29 Last Admin: 02/25/17 14:47 Dose: Not Given Lactated Ringer's (Ringers, Lactated) 1,000 mls [facility] Admin: 02/26/17 01:00 Dose: 50 mls/hr Cefoxitin Sodium 1 gm/ Premix 50 mls @ 100 mls/hr IV Q8H [facility] Last Admin: 02/28/17 09:11 Dose: 100 mls/hr Magnesium Sulfate 2 gm/ Premix 50 mls @ 25 mls/hr IV ONETIME ONE Stop: 02/27/17 17:31 Last Admin: 02/27/17 17:54 Dose: 25 mls/hr Lactated Ringer's (Ringers, Lactated) 1,000 mls @ 75 mls/hr IV ASDIRECTED [facility] Last Admin: 02/28/17 14:21 Dose: 75 mls/hr Iopamidol (Isovue-300 (61%)) 100 ml IVPUSH ONETIME ONE Stop: 02/28/17 10:42 Last Admin: 02/28/17 12:00 Dose: 90 ml Latanoprost (Xalatan 0.005% Oph Soln) 0 ml EYEBOTH BEDTIME [facility] Last Admin: 02/27/17 21:50 Dose: 1 drop Levothyroxine Sodium (Levothyroxine) 75 mcg PO SuTuWeThSa@0600 [facility] Last Admin: 02/27/17 06:09 Dose: 75 mcg Levothyroxine Sodium (Synthroid) 50 mcg PO MoFr@0600 [facility] Last Admin: 02/28/17 06:19 Dose: 50 mcg Lorazepam (Ativan) 2 mg IVPUSH Q4H PRN PRN Reason: Seizures Losartan Potassium (Cozaar) 25 mg PO BID [facility] Magnesium Oxide (Magnesium Oxide) 400 mg PO DAILY [facility] Last Admin: 02/28/17 08:03 Dose: 400 mg Metoprolol Tartrate (Lopressor) 5 mg IVPUSH Q4H PRN PRN Reason: Tachycardia Miscellaneous Information (Remove Patch) 1 ea TRDERM Q7D [facility] Last Admin: 02/28/17 10:40 Dose: 1 ea Ondansetron HCl (Zofran) 4 mg IVPUSH Q8H PRN PRN Reason: Nausea Last Admin: 02/25/17 00:35 Dose: 4 mg Pantoprazole Sodium (Protonix) 40 mg PO DAILY PRN PRN Reason: HEARTBURN Potassium Chloride (Klor-Con M20) 40 meq PO ONETIME ONE Stop: 02/27/17 12:57 Last Admin: 02/27/17 13:48 Dose: 40 meq Potassium Chloride (Potassium Chloride Solution) 40 meq PO BID [facility] Stop: 02/28/17 21:01 Last Admin: 02/28/17 08:03 Dose: 40 meq Saccharomyces Boulardii (Florastor) 250 mg PO BID [facility] Last Admin: 02/28/17 08:02 Dose: 250 mg Simvastatin (Zocor) 10 mg PO BEDTIME [facility] Last Admin: 02/27/17 21:49 Dose: 10 mg Sodium Chloride (Saline Flush) 10 ml FLUSH ASDIRECTED PRN PRN Reason: Keep Vein Open Sodium Chloride (Saline Flush) 10 ml FLUSH ONETIME PRN PRN Reason: IV FLUSH Stop: 02/28/17 12:30 Last Admin: 02/28/17 12:01 Dose: 10 ml Timolol Maleate (Timoptic 0.5% Ophth Soln) 0 ml EYEBOTH DAILY [facility] Last Admin: 02/28/17 08:03 Dose: 2 drop - Exam Quality Assessment: DVT Prophylaxis General: Alert, Oriented, Cooperative, No Acute Distress HEENT: Pupils Equal, Pupils Reactive, EOMI Neck: Supple, Trachea Midline, No JVD Lungs: Normal Respiratory Effort Cardiovascular: Regular Rate, Regular Rhythm GI/Abdominal Exam: Normal Bowel Sounds, Soft, Non-Tender, No Organomegaly, No Distention (Female) Exam: Deferred Back Exam: Normal Inspection Extremities: Normal Inspection Skin: Warm Neurological: No New Focal Deficit Psy/Mental Status: Alert, Normal Affect, Normal Mood - Problem List Review Problem List Initiated/Reviewed/Updated: Yes - Plan Plan:: Impression/Plan: Fever, unspecified Post Op with clinical improvement CT of abdomen/pelvis pending HTN-->stopped clonidine, started Losartan 25 mg BID Continue HCTZ Will follow, DC expected today or tomorrow pending CT results.
[2017-02-28] MEDS ORDERED: Losartan 25 MG Tab PO SCH (21:00)
--- NOTE | 2017-03-01 01:27 | DISCH ---
ADMISSION DATE: 02/24/2017 DISCHARGE DATE: 02/28/2017 Transfer Summary HISTORY: An 81-year-old, who presented on the in the emergency room with abdominal pain diagnosed with a CT scan as acute appendicitis. Her particular problems at that time was that of a history of radiation to the area about 20 years ago, either ovarian or uterine cancers but was not clear. The patient after antibiotics were given underwent a laparoscopic appendectomy and was discharged as outpatient treatment once recovered from anesthesia on antibiotics of Cleocin. The patient did well until Friday of this week when she began to feel sick, kind of nonspecific with some loss of appetite and vomiting. There is no chills or fever. The patient was thus admitted to the hospital and at the time of admission, the patient had generalized abdominal discomfort and tenderness in the right lower quadrant, and elevated white count of 14,000. The patient was then started on antibiotics and IV fluids and improved, white count came down to 11, but yesterday, the white count popped up again to 15,000 and stayed up the next day. Her abdominal exam was nondescript and she was eating and her appetite had returned. CT scan was then repeated showing an abscess in the site of the appendectomy area. The patient was informed the results of this test and I requested that she be transferred for drainage of her abscess. Examination at the time of her transfer showed alert, cooperative female, no acute distress at the time. Temperature 97, pulse 89, blood pressure 145/72. She did have an episode of hypertension which was attended by the hospitalist while she was here. Her abdomen showed nondescript tenderness, but was mild in nature, mild distention, but it was soft in some areas. The patient at the time during her stay in the hospital, she was initially started Invanz but the pharmacist felt this was a counter antibiotic and was started on cefoxitin and Flagyl. The patient has reached maximum hospital benefit and was transferred to [facility] for drainage of an abscess. TRANSFER DIAGNOSES: 1. Status post appendectomy postoperative abscess. 2. History of radiation. 3. Hypertension. CONDITION ON DISCHARGE: Stable. DIET: N.p.o. Condition improved. ACTIVITY: Ad araceli. DISCHARGE MEDICATIONS: Per medication reconciliation form. Receiving doctors, Dr. Van at [place]. FINAL DIAGNOSIS: MMODAL /[id number]
== END 2017-02-28 14:52 | DRG 373 ==
LOC: JD.MS 16:38
PROVIDERS: ADMIT Surgery; ATTEND Surgery
DX: K35.3 Acute appendicitis with localized peritonitis (principal); I97.3 Postprocedural hypertension; D72.829 Elevated white blood cell count, unspecified; R19.7 Diarrhea, unspecified; R50.9 Fever, unspecified; E03.9 Hypothyroidism, unspecified; E78.5 Hyperlipidemia, unspecified; Z98.890 Other specified postprocedural states; E78.00 Pure hypercholesterolemia, unspecified; K21.9 Gastro-esophageal reflux disease without esophagitis; M19.90 Unspecified osteoarthritis, unspecified site; Z88.1 Allergy status to other antibiotic agents; Z79.899 Other long term (current) drug therapy; Z85.43 Personal history of malignant neoplasm of ovary; Z85.42 Personal history of malignant neoplasm of other parts of uterus
CPT/HCPCS: 36415; 74020; 74020-26; 74177; 74177-26; 80048; 83605; 83735; 84443; 85025; 85027; 85379; 86140; 87493; A9270-GY; J0694; J1170; J1335; J1644; J2405; J3475; J7030; J7050; J7120; Q9967

== ENCOUNTER 2019-09-06 07:00 | Inpatient (IN) | payer MEDICARE, BC ==
[~2019-09-06 07:00] MED LIST: Lidocaine 1%/Sod Bicarbonate in NS 8.4% 1 ML Syringe IDERM PRN; Sodium Chloride 0.9% 10 ML Syringe FLUSH PRN
[2019-09-06] MEDS ORDERED: Bisacodyl 5 MG Tab PO PRN (07:17)
[2019-09-06] MEDS ORDERED: Sennosides 8.6 MG Tab PO PRN (07:17)
[2019-09-06] MEDS ORDERED: Naloxone 0.4 MG/ML SDV IVPUSH PRN (07:17)
[2019-09-06] MEDS ORDERED: Morphine 2 MG/ML SYRINGE IVPUSH PRN (07:17)
[2019-09-06] MEDS ORDERED: Magnesium Hydroxide 400 MG/5 ML Susp 30 ML Cup PO PRN (07:17)
[2019-09-06] MEDS ORDERED: EPINEPHrine 1 MG/ML SDV ONE (07:45)
[2019-09-06] MEDS ORDERED: Bupivacaine 0.5% 30 ML SDV ONE (07:45)
--- NOTE | 2019-09-06 07:45 | PCM.CONS ---
H&P History of Present Illness - General Date of Service: 09/06/19 Admit Problem/Dx: Admission Diagnosis/Problem Admission Diagnosis/Problem Osteoarthritis of knee Source of Information: Patient, Old Records, Provider, RN, RN Notes Reviewed History Limitations: Reports: No Limitations - History of Present Illness Initial Comments - Free Text/Narative: Rebekah Aldana is a 83 [address] patient of Dr. Calvillo who is post-operative day 0 of left TKA with right knee cortisone injection. Hospital medicine was consulted for post-operative medical care of the following listed medical conditions. At this time she is resting comfortably in bed. Pain is controlled. She denies any chest pain, shortness of breath, palpitations, nausea, or vomiting. She carries a history of: OA, Dyslipidemia, Osteopenia, Hypothyroidism , Uterine cancer, ovarian cancer s/p radiation in 1990, glaucoma, vertigo, chronic constipation, atelectasis, post-operative nausea and vomiting, GERD, recurrent UTIs, macular degeneration. She was never a smoker. She is a full code. Her primary care provider is Dr. Douglas. Left Knee Pain Score (Numeric/FACES): 0 - Related Data Allergies/Adverse Reactions: Allergies Allergy/AdvReac Type Severity Reaction Status Date / Time amoxicillin Allergy Rash Verified 09/06/19 13:02 Home Medications: Home Meds Calcium Carbonate/Vitamin D3 [Calcium 500 + Vit D Caplet] 1 each PO BID [History] Dextran 70/Hypromellose [Artificial Tears] 1 each OP TID PRN 02/21/17 [History] Docusate Sodium [Colace] 100 mg PO DAILY 02/21/17 [History] Ibuprofen 200 - 400 mg PO Q4HR PRN 02/21/17 [History] Levothyroxine 75 mcg PO SUTUWETHSA 02/21/17 [History] Levothyroxine [Synthroid] 50 mcg PO MOFR 02/21/17 [History] Lovastatin 20 mg PO BEDTIME 02/21/17 [History] Multivitamin [Multi-Vitamin Daily] 1 each PO DAILY 02/21/17 [History] Timolol Maleate [Timoptic 0.5% Ophth Soln] 1 drop EYEBOTH DAILY 02/21/17 [ History] Travoprost [Travatan Z] 1 drop EYEBOTH BEDTIME 02/21/17 [History] Cholecalciferol (Vitamin D3) [Vitamin D3] 5,000 unit PO DAILY 09/03/19 [History] Vit C/E/Zn/Coppr/Lutein/Zeaxan [Preservision Areds 2 Softgel] 1 cap PO BID 09/03 [History] Acetaminophen [Tylenol Arthritis] 650 mg PO Q8H PRN 09/06/19 [History] Past Medical History HEENT History: Reports: Glaucoma, Impaired Vision, Macular Degeneration Cardiovascular History: Reports: High Cholesterol Respiratory History: Reports: None Gastrointestinal History: Reports: Chronic Constipation, GERD Genitourinary History: Reports: UTI, Recurrent, Other (See Below) Other Genitourinary History: cystitis with hematuria 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: Other (See Below) Other OB/BYN History: ovarian cancer Musculoskeletal History: Reports: Arthritis, Osteoarthritis, Other (See Below) Other Musculoskeletal History: left bakers cyst, left knee meniscus tear, degenerative joint disease Neurological History: Reports: Vertigo Psychiatric History: Reports: None Endocrine/Metabolic History: Reports: Hypothyroidism, Osteopenia Hematologic History: Reports: None Immunologic History: Reports: None Oncologic (Cancer) History: Reports: Uterine Other Oncologic History: ovarian cancer had radiation 1990 Dermatologic History: Reports: None - Infectious Disease History Infectious Disease History: Reports: Measles - Past Surgical History Head Surgeries/Procedures: Reports: None HEENT Surgical History: Reports: Tonsillectomy Cardiovascular Surgical History: Reports: None Respiratory Surgical History: Reports: None GI Surgical History: Reports: Appendectomy Female Surgical History: Reports: Hysterectomy, Oophorectomy Endocrine Surgical History: Reports: None Neurological Surgical History: Reports: None Other Musculoskeletal Surgeries/Procedures:: bilat knee ache and hurt alot. Oncologic Surgical History: Reports: None Dermatological Surgical History: Reports: None Social & Family History - Family History Family Medical History: Noncontributory - Tobacco Use Smoking Status *Q: Never Smoker - Caffeine Use Caffeine Use: Reports: Coffee Other Caffeine Use: 1 cup - Recreational Drug Use Recreational Drug Use: No Drug Use in Last 12 Months: No H&P Review of Systems - Review of Systems: Review Of Systems: See Below General: Reports: No Symptoms. Denies: Fever, Chills HEENT: Reports: No Symptoms. Denies: Headaches, Sore Throat Pulmonary: Reports: No Symptoms. Denies: Shortness of Breath, Wheezing, Pleuritic Chest Pain, Cough, Sputum, Hemoptysis Cardiovascular: Reports: No Symptoms. Denies: Chest Pain, Palpitations, Edema Gastrointestinal: Reports: No Symptoms. Denies: Abdominal Pain, Constipation, Diarrhea, Nausea, Vomiting Genitourinary: Reports: No Symptoms. Denies: Pain Musculoskeletal: Reports: Leg Pain Skin: Reports: No Symptoms. Denies: Cyanosis Psychiatric: Reports: No Symptoms. Denies: Confusion Neurological: Reports: Difficulty Walking, Gait Disturbance Hematologic/Lymphatic: Reports: No Symptoms Immunologic: Reports: No Symptoms Exam - Exam Exam: See Below - Exam Quality Assessment: DVT Prophylaxis. No: Supplemental Oxygen, Urinary Catheter General: Alert, Oriented, Cooperative. No: Mild Distress HEENT: Conjunctiva Clear, EACs Clear, Hearing Intact, Mucosa Moist & [place], Posterior Pharynx Clear, PERRLA Neck: Supple, Trachea Midline Lungs: Clear to Auscultation, Normal Respiratory Effort Cardiovascular: Regular Rate, Regular Rhythm GI/Abdominal Exam: Normal Bowel Sounds, Soft, Non-Tender, No Distention (Female) Exam: Deferred Rectal (Female) Exam: Deferred Back Exam: Normal Inspection, Full Range of Motion Extremities: Normal Capillary Refill, Leg Pain, Limited Range of Motion, Other ( Bandage in place on left leg. Bandage is dry and intact. Cooling pack in place.) Peripheral Pulses: 2+: Radial (L), Radial (R), Dorsalis Pedis (L), Dorsalis Pedis (R) Skin: Warm, Dry, Intact Neurological: Cranial Nerves Intact (Grossly ) Neuro Extensive - Mental Status: Alert, Oriented x3 Consult PN Assessment/Plan POD#: 0 Procedures: Procedures ASSAY OF FREE THYROXINE (08/23/19) ASSAY OF LACTIC ACID (02/24/17) ASSAY OF LIPASE (02/21/17) ASSAY OF MAGNESIUM (02/24/17) ASSAY OF PREALBUMIN (08/20/19) ASSAY THYROID STIM HORMONE (08/23/19) C DIFF AMPLIFIED PROBE (02/24/17) C-REACTIVE PROTEIN (08/06/19) COMPLETE CBC AUTOMATED (11/30/18) COMPLETE CBC W/AUTO DIFF WBC (08/06/19) COMPREHEN METABOLIC PANEL (08/20/19) CT ABD & PELV W/CONTRAST (02/24/17) DRAIN/INJ JOINT/BURSA W/O US (06/18/18) DXA BONE DENSITY AXIAL (11/27/17) ELECTROCARDIOGRAM TRACING (02/21/17) EMERGENCY DEPT VISIT (02/21/17) FIBRIN DEGRADATION QUANT (02/24/17) HYDRATE IV INFUSION ADD-ON (02/21/17) IIV NO PRSV INCREASED AG IM (04/23/18) LAPAROSCOPY APPENDECTOMY (02/21/17) LIPID PANEL (11/30/18) MANUAL THERAPY 1/> REGIONS (10/03/16) METABOLIC PANEL TOTAL CA (08/06/19) MICROBE SUSCEPTIBLE DISK (08/06/19) MICROBE SUSCEPTIBLE ROSALIND (08/06/19) MRI JNT OF LWR EXTRE W/O DYE (09/06/16) OFFICE/OUTPATIENT VISIT EST (08/23/19) OFFICE/OUTPATIENT VISIT NEW (09/04/16) PROTHROMBIN TIME (06/07/19) PT EVAL LOW COMPLEX 20 MIN (10/03/16) ROUTINE VENIPUNCTURE (08/23/19) SCR MAMMO BI INCL CAD (11/27/17) THER/PROPH/DIAG IV INF INIT (02/21/17) THERAPEUTIC EXERCISES (10/03/16) THROMBOPLASTIN TIME PARTIAL (06/07/19) TX/PRO/DX INJ NEW DRUG ADDON (02/21/17) URINALYSIS AUTO W/O SCOPE (08/23/19) URINALYSIS AUTO W/SCOPE (08/06/19) URINE BACTERIA CULTURE (08/06/19) URINE CULTURE/COLONY COUNT (08/06/19) X-RAY EXAM ABDOMEN 1 VIEW (12/18/17) X-RAY EXAM CHEST 2 VIEWS (06/07/19) X-RAY EXAM OF ABDOMEN (02/24/17) (1) S/P total knee arthroplasty SNOMED Code(s): 4129091954975, 066923042, 4848032361550 Code(s): Z96.659 - PRESENCE OF UNSPECIFIED ARTIFICIAL KNEE JOINT Priority: High Current Visit: Yes Qualifiers: Laterality: left Qualified Code(s): Z96.652 - Presence of left artificial knee joint (2) Osteoarthritis SNOMED Code(s): 697170355 Code(s): M19.90 - UNSPECIFIED OSTEOARTHRITIS, UNSPECIFIED SITE Priority: High Current Visit: Yes Qualifiers: Osteoarthritis location: knee Osteoarthritis type: primary Laterality: bilateral Qualified Code(s): M17.0 - Bilateral primary osteoarthritis of knee (3) Dyslipidemia SNOMED Code(s): 512912313 Code(s): E78.5 - HYPERLIPIDEMIA, UNSPECIFIED Current Visit: Yes (4) Osteopenia SNOMED Code(s): 819404323 Code(s): M85.80 - OTH DISRD OF BONE DENSITY AND STRUCTURE, UNSPECIFIED SITE Priority: High Current Visit: Yes Qualifiers: Osteopenia location: multiple sites Qualified Code(s): M85.89 - Other specified disorders of bone density and structure, multiple sites (5) Hypothyroidism SNOMED Code(s): 11499419 Code(s): E03.9 - HYPOTHYROIDISM, UNSPECIFIED Priority: Low Current Visit : No Qualifiers: Hypothyroidism type: unspecified Qualified Code(s): E03.9 - Hypothyroidism , unspecified (6) Uterine cancer SNOMED Code(s): 122494318 Code(s): C55 - MALIGNANT NEOPLASM OF UTERUS, PART UNSPECIFIED Priority: Low Current Visit: No Qualifiers: Malignant neoplasm of uterus location: unspecified site of uterus Qualified Code(s): C55 - Malignant neoplasm of uterus, part unspecified (7) History of ovarian cancer Priority: Low Current Visit: No (8) Glaucoma SNOMED Code(s): 84510151 Code(s): H40.9 - UNSPECIFIED GLAUCOMA Priority: Low Current Visit: No Qualifiers: Glaucoma type: unspecified (9) Vertigo SNOMED Code(s): 645025307 Code(s): R42 - DIZZINESS AND GIDDINESS Priority: Low Current Visit: No (10) Chronic constipation SNOMED Code(s): 313021816 Code(s): K59.09 - OTHER CONSTIPATION Priority: Low Current Visit: No (11) History of postoperative nausea and vomiting SNOMED Code(s): 970779530, 885264984 Code(s): Z87.898 - PERSONAL HISTORY OF OTHER SPECIFIED CONDITIONS Priority : Medium Current Visit: No (12) Macular degeneration SNOMED Code(s): 995007273 Code(s): H35.30 - UNSPECIFIED MACULAR DEGENERATION Priority: Low Current Visit: No Qualifiers: Macular degeneration type: unspecified type (13) GERD (gastroesophageal reflux disease) SNOMED Code(s): 721903741 Code(s): K21.9 - GASTRO-ESOPHAGEAL REFLUX DISEASE WITHOUT ESOPHAGITIS Priority: Low Current Visit: No Qualifiers: Esophagitis presence: esophagitis presence not specified Qualified Code(s) : K21.9 - Gastro-esophageal reflux disease without esophagitis (14) Recurrent UTI SNOMED Code(s): 868458007 Code(s): N39.0 - URINARY TRACT INFECTION, SITE NOT SPECIFIED Priority: Low Current Visit: No Problem List Initiated/Reviewed/Updated: Yes Plan: I/P: Acute: S/P left total knee arthroplasty with right knee cortisone injection- post- operative day 0 -DVT prophylaxis and pain management per primary care team -PT/OT -IS/RT -Monitor oxygen saturation -Titrate oxygen as needed -Home medications reviewed -Vital signs stable -Monitor labs -Pre-operative Hgb was 14.0 -Pre-operative GFR was >60 -Pre-operative WBC was 10.48 -Pre-operative CRP was 1.8 -Pre-operative BUN was 19 Osteoarthritis of bilateral knee -Pain management per primary care team Chronic: OA Dyslipidemia Osteopenia Hypothyroidism Uterine cancer ovarian cancer s/p radiation in 1990 glaucoma vertigo chronic constipation atelectasis post-operative nausea and vomiting GERD recurrent UTIs macular degeneration Plan: CM for discharge planning GI prophylaxis Home medications as indicated Other orders as listed above Routine AM labs She is a full code. Her PCP is Dr. Douglas Thank you for allowing us to participate in the care of this patient!! Requesting Provider: Dr. Calvillo Patient History Reviewed: Yes Admission H&P Reviewed: Yes Notified Requestor: Yes
[2019-09-06] MEDS ORDERED: Ropivacaine 0.5% 5 MG/ML 30 ML SDV ONE (07:57)
[2019-09-06] MEDS ORDERED: Triamcinolone Acetonide 40 MG/ML 1 ML SDV ONE (08:05)
[2019-09-06] MEDS ORDERED: Bupivacaine 0.25% 10 ML SDV ONE (08:05)
[2019-09-06] MEDS: Lactated Ringers 1,000 ML IV SCH ×2 (08:18→11:56)
--- NOTE | 2019-09-06 08:43 | PCM.PREANE ---
Preanesthetic Assessment - Anesthesia/Transfusion/Family Hx Anesthesia History: Prior Anesthesia Reaction Transfusion History: No Prior Transfusion(s) Intubation History: Unknown - Review of Systems General: No Symptoms Pulmonary: No Symptoms Cardiovascular: No Symptoms Gastrointestinal: No Symptoms Neurological: No Symptoms Other: Reports: None - Physical Assessment NPO Status Date: 09/05/19 NPO Status Time: 22:00 Vital Signs: Last Vital Signs Temp 97.5 F 09/06/19 08:00 Pulse 85 09/06/19 08:00 Resp 18 09/06/19 08:00 BP 163/67 H 09/06/19 08:13 Pulse Ox 98 09/06/19 08:00 Height: 1.52 m Weight: 57.606 kg ASA Class: 2 Mental Status: Alert & Oriented x3 Airway Class: Mallampati = 1 Dentition: Reports: Normal Dentition Thyro-Mental Finger Breadths: 3 Mouth Opening Finger Breadths: 3 ROM/Head Extension: Full Lungs: Clear to Auscultation, Normal Respiratory Effort - Lab Values: Laboratory Last Values C-Reactive Protein 0.4 mg/dL (<1.0) 08/31/19 12:50 MRSA (PCR) Negative 08/11/19 17:23 - Allergies Allergies/Adverse Reactions: Allergies Allergy/AdvReac Type Severity Reaction Status Date / Time amoxicillin Allergy Rash Verified 09/06/19 08:40 - Acknowledgements Anesthesia Type Planned: General Anesthesia (as a backup plan), Spinal, Regional Block Pt an Appropriate Candidate for the Planned Anesthesia: Yes Alternatives and Risks of Anesthesia Discussed w Pt/Guardian: Yes Pt/Guardian Understands and Agrees with Anesthesia Plan: Yes PreAnesthesia Questionnaire HEENT History: Reports: Glaucoma, Impaired Vision, Macular Degeneration Cardiovascular History: Reports: High Cholesterol Gastrointestinal History: Reports: Chronic Constipation, GERD Genitourinary History: Reports: UTI, Recurrent, Other (See Below) Other Genitourinary History: cystitis with hematuria HOME HEALTH AIDE History: Reports: Other (See Below) Other OB/BYN History: ovarian cancer Musculoskeletal History: Reports: Arthritis, Osteoarthritis, Other (See Below) Other Musculoskeletal History: left bakers cyst, left knee meniscus tear, degenerative joint disease Neurological History: Reports: Vertigo Psychiatric History: Reports: None Endocrine/Metabolic History: Reports: Hypothyroidism, Osteopenia Hematologic History: Reports: None Immunologic History: Reports: None Oncologic (Cancer) History: Reports: Uterine Other Oncologic History: ovarian cancer had radiation 1990 Dermatologic History: Reports: None - Infectious Disease History Infectious Disease History: Reports: Measles - Past Surgical History Head Surgeries/Procedures: Reports: None HEENT Surgical History: Reports: Tonsillectomy Cardiovascular Surgical History: Reports: None Respiratory Surgical History: Reports: None GI Surgical History: Reports: Appendectomy Female Surgical History: Reports: Hysterectomy, Oophorectomy Endocrine Surgical History: Reports: None Neurological Surgical History: Reports: None Other Musculoskeletal Surgeries/Procedures:: bilat knee ache and hurt alot. Oncologic Surgical History: Reports: None Dermatological Surgical History: Reports: None - SUBSTANCE USE Smoking Status *Q: Never Smoker Recreational Drug Use History: No - HOME MEDS Home Medications: Home Meds Calcium Carbonate/Vitamin D3 [Calcium 500 + Vit D Caplet] 1 each PO DAILY [History] Dextran 70/Hypromellose [Artificial Tears] 1 each OP QID PRN 02/21/17 [History] Docusate Sodium [Colace] 100 mg PO BID 02/21/17 [History] Ibuprofen 200 mg PO Q4HR PRN 02/21/17 [History] Levothyroxine 75 mcg PO SUTUWETHSA 02/21/17 [History] Levothyroxine [Synthroid] 50 mcg PO MOFR 02/21/17 [History] Lovastatin 20 mg PO BEDTIME 02/21/17 [History] Multivitamin [Multi-Vitamin Daily] 1 each PO DAILY 02/21/17 [History] Timolol Maleate [Timoptic 0.5% Ophth Soln] 1 drop EYEBOTH DAILY 02/21/17 [ History] Travoprost [Travatan Z] 1 drop EYEBOTH BEDTIME 02/21/17 [History] Cholecalciferol (Vitamin D3) [Vitamin D3] 5,000 unit PO DAILY 09/03/19 [History] Vit C/E/Zn/Coppr/Lutein/Zeaxan [Preservision Areds 2 Softgel] 1 cap PO DAILY [History] - CURRENT (IN HOUSE) MEDS Current Meds: Current Medications Aspirin (Ecotrin) 325 mg PO BID ROSY Bisacodyl (Dulcolax) 5 mg PO DAILY PRN PRN Reason: Constipation Morphine Sulfate 8 mg/Epinephrine HCl 0.3 mg/Cefuroxime Sodium 750 mg/Ketorolac Tromethamine 30 mg/Sodium Chloride 7.9 ml 0 mg .XX ASDIRECTED PRN PRN Reason: Pain Stop: 09/06/19 14:00 Cyclobenzaprine HCl (Flexeril) 5 mg PO BID PRN PRN Reason: Spasms Docusate Sodium (Colace) 100 mg PO BID ROSY Famotidine (Pepcid) 20 mg PO Q12H [facility] Lactated Ringer's (Ringers, Lactated) 1,000 mls @ 125 mls/hr IV ASDIRECTED ROSY Stop: 09/06/19 23:00 Cefazolin Sodium/Dextrose 2 gm (/ Premix) 50 mls @ 100 mls/hr IV Q8H [facility] Stop: 09/06/19 23:44 Ketorolac Tromethamine (Toradol) 15 mg IVPUSH Q6H PRN PRN Reason: Pain Lidocaine/Sodium Bicarbonate (Buffered Lidocaine 1% In Ns 8.4%) 0.25 ml IDERM ONETIME PRN PRN Reason: Prior to IV Start Stop: 09/06/19 18:00 Magnesium Hydroxide (Milk Of Magnesia) 30 ml PO BID PRN PRN Reason: Constipation Morphine Sulfate (Morphine) 2 mg IVPUSH Q2H PRN PRN Reason: Breakthrough Pain Naloxone HCl (Narcan) 0.1 mg IVPUSH Q5M PRN PRN Reason: Oversedation Ondansetron HCl (Zofran) 4 mg IVPUSH Q6H PRN PRN Reason: Nausea/Vomiting Oxycodone/Acetaminophen (Percocet 325-5 Mg) 1 - 2 tab PO Q4H PRN PRN Reason: Pain Senna (Senna) 8.6 mg PO BID PRN PRN Reason: Constipation Sodium Chloride (Saline Flush) 10 ml FLUSH ASDIRECTED PRN PRN Reason: Keep Vein Open Stop: 09/06/19 18:00 Discontinued Medications Bupivacaine HCl (Sensorcaine-Mpf 0.25%) Confirm Administered Dose 30 ml .ROUTE .STK-MED ONE Stop: 09/06/19 07:11 Bupivacaine HCl (Marcaine 0.5%) Confirm Administered Dose 30 ml .ROUTE .STK-MED ONE Stop: 09/06/19 07:46 Bupivacaine HCl (Sensorcaine-Mpf 0.25%) Confirm Administered Dose 10 ml .ROUTE .STK-MED ONE Stop: 09/06/19 08:06 Cefazolin Sodium (Ancef) Confirm Administered Dose 2 gm .ROUTE .STK-MED ONE Stop: 09/06/19 07:11 Epinephrine HCl (Adrenalin) Confirm Administered Dose 1 mg .ROUTE .STK-MED ONE Stop: 09/06/19 07:46 Iodine (Iodine 2% Mild Tincture) Confirm Administered Dose 30 ml .ROUTE .STK- MED ONE Stop: 09/06/19 07:12 Ropivacaine (Naropin 0.5%) Confirm Administered Dose 30 ml .ROUTE .STK-MED ONE Stop: 09/06/19 07:58 Tranexamic Acid (Cyklokapron) Confirm Administered Dose 1,000 mg .ROUTE .STK- MED ONE Stop: 09/06/19 07:11 Triamcinolone Acetonide (Kenalog-40) Confirm Administered Dose 80 mg .ROUTE .STK -MED ONE Stop: 09/06/19 08:06 Vancomycin HCl (Vancomycin) Confirm Administered Dose 1 gm .ROUTE .STK-MED ONE Stop: 09/06/19 07:11
[2019-09-06] MEDS ORDERED: ceFAZolin 1 GM Vial ONE (08:49)
[2019-09-06] MEDS ORDERED: Propofol 200 MG/20 ML SDV ONE ×2 (08:49→10:13)
[2019-09-06] MEDS ORDERED: Lidocaine 1% 4 ML ONE (08:50)
[2019-09-06] MEDS ORDERED: Midazolam 1 MG/ML 2 ML SDV ONE (08:52)
[2019-09-06] MEDS: Iodine/Sodium Iodide 2% Tincture 30 ML Bottle ONE ×2 (10:22→10:41)
[2019-09-06] MEDS: ceFAZolin 1 GM Vial ONE ×2 (10:22→10:42)
[2019-09-06] MEDS: Morphine 8 MG, EPINEPHrine 0.3 MG, Cefuroxime 750 MG, Ketorolac 30 MG, Sodium Chloride ... PRN ×10 (10:23→10:46)
[2019-09-06] MEDS: Bupivacaine 0.25% 10 ML SDV ONE ×2 (10:24→10:46)
[2019-09-06] MEDS: Vancomycin 1 GM SDV ONE ×2 (10:24→10:51)
--- NOTE | 2019-09-06 11:41 | PCM.POSTAN ---
POST ANESTHESIA ASSESSMENT - MENTAL STATUS Mental Status: Alert, Oriented - VITAL SIGNS Vital Signs: Last Vital Signs Temp 96.8 F L 09/06/19 11:30 Pulse 78 09/06/19 11:30 Resp 22 H 09/06/19 11:30 BP 161/84 H 09/06/19 11:30 Pulse Ox 100 09/06/19 11:30 - RESPIRATORY Respiratory Status: Respiratory Rate WNL, Airway Patent, O2 Saturation Stable - CARDIOVASCULAR CV Status: Pulse Rate WNL, Blood Pressure Stable - GASTROINTESTINAL GI Status: No Symptoms - PAIN Pain Score: 0 (post SAB) - POST OP HYDRATION Hydration Status: Adequate & Stable
--- NOTE | 2019-09-06 11:47 | PCM.PRNOTE ---
- Free Text/Narrative Note: Postoperative regional pain control requested by surgeon. Pre-op Dx: Left knee osteoarthritis. Post-op Rx: Total Left knee arthroplasty. Procedure: Left Adductor canal block with U/S guidance Requesting physician: Dr. Chao Dimas Risks and benefits discussed with the patient preoperatively including infection , bleeding, incomplete or failed block, possible nerve damage, local anesthetic toxicity. Permit signed. Patient after spinal anesthesia post surgery in PACU, stable , alert and awake. Time out performed. Left mid-thigh was prepped with Chloraprep x 1 and allowed to dry. Under aseptic technique, the left femoral artery and sartorius muscle were identified under ultrasound prior to needle insertion. 4" Stimuplex needle #22 [id number] was inserted under US guidance. Under direct visualization of needle tip the injection of 0.5% Bupivacaine with 1:200k epinephrine, total of 20 mls in divided doses, maintaining negative aspiration was completed without problems. No local anesthetic toxicity was noted. Patient is awake, stable and tolerated the procedure well. Time: 11:28 - 11:33 Please see attached U/S image
[2019-09-06] MEDS ORDERED: fentaNYL 100 MCG/2 ML SDV IVPUSH PRN (11:51)
[2019-09-06] MEDS: Acetaminophen/oxyCODONE 325-5 MG Tab PO PRN ×3 (12:00→21:48)
[2019-09-06] MEDS ORDERED: Ketorolac 30 MG/ML SDV IVPUSH ONE (12:00)
[2019-09-06] MEDS ORDERED: Ketorolac 15 MG/ML SDV IVPUSH PRN (13:00)
[2019-09-06] MEDS ORDERED: REFRESH EYEBOTH PRN (13:15)
--- NOTE | 2019-09-06 13:33 | CR ---
Left knee: AP and lateral views of the left knee were obtained. Comparison: Previous left knee exam of 09/11/16. Left knee prosthesis is seen. Components are aligned. Soft tissue air is noted from the surgical procedure. Impression: 1. Satisfactory appearance of recently placed left knee prosthesis. Diagnostic code #2 This report was dictated in [place] Standard Time
[2019-09-06] MEDS ORDERED: hydrALAZINE 20 MG/ML SDV IVPUSH PRN (15:33)
[2019-09-06] MEDS ORDERED: hydrALAZINE 20 MG/ML SDV IVPUSH ONE (15:40)
[2019-09-06] MEDS: ceFAZolin 2 GM in Premix Bag 1 BAG IV SCH (16:14)
[2019-09-06] MEDS: Ondansetron 4 MG/2 ML SDV IVPUSH PRN (16:56)
[2019-09-06] MEDS ORDERED: Cyclobenzaprine 10 MG Tab PO PRN (21:00)
[2019-09-06] MEDS ORDERED: Simvastatin 10 MG Tab PO SCH (21:00)
[2019-09-06] MEDS ORDERED: Famotidine 20 MG Tab PO SCH (21:00)
[2019-09-06] MEDS ORDERED: TRAVATAN Z 0.004% EYEBOTH SCH (21:00)
[2019-09-06] MEDS: Docusate Sodium 100 MG Cap PO SCH (21:48)
[2019-09-06] MEDS: Calcium Carbonate/Vitamin D3 600 MG-200 Units Tab PO SCH (21:49)
[2019-09-07] MEDS: ceFAZolin 2 GM in Premix Bag 1 BAG IV SCH ×2 (00:55→09:03)
[2019-09-07] MEDS: Ondansetron 4 MG/2 ML SDV IVPUSH PRN (02:33)
[2019-09-07] MEDS: Ketorolac 15 MG/ML SDV IVPUSH PRN ×2 (02:38→10:49)
[2019-09-07] MEDS ORDERED: Levothyroxine 75 MCG Tab PO SCH (06:00)
--- NOTE | 2019-09-07 06:58 | PCM.CONSN ---
- General Info Date of Service: 09/07/19 Admission Dx/Problem (Free Text): Admission Diagnosis/Problem Admission Diagnosis/Problem Osteoarthritis of knee Functional Status: Reports: Pain Controlled, Tolerating Diet, Ambulating, Urinating, Incentive Spirometry. Denies: New Symptoms - Review of Systems General: Reports: No Symptoms. Denies: Fever HEENT: Reports: No Symptoms. Denies: Headaches, Sore Throat Pulmonary: Reports: No Symptoms. Denies: Shortness of Breath, Pleuritic Chest Pain, Cough, Sputum, Wheezing Cardiovascular: Reports: No Symptoms. Denies: Chest Pain, Palpitations, Edema Gastrointestinal: Reports: No Symptoms. Denies: Abdominal Pain, Constipation, Diarrhea, Nausea, Vomiting Genitourinary: Reports: No Symptoms. Denies: Pain Musculoskeletal: Reports: Leg Pain Skin: Reports: No Symptoms. Denies: Cyanosis Neurological: Reports: Difficulty Walking, Gait Disturbance. Denies: Confusion Psychiatric: Reports: No Symptoms - Patient Data Vitals - Most Recent: Last Vital Signs Temp 97.9 F 09/07/19 01:01 Pulse 103 H 09/07/19 01:01 Resp 20 09/07/19 01:01 BP 148/74 H 09/07/19 01:01 Pulse Ox 93 L 09/07/19 01:01 Weight - Most Recent: 135 lb 3.2 oz I&O - Last 24 Hours: Intake & Output 09/06/19 09/06/19 09/07/19 14:59 22:59 06:59 Intake Total 450 980 904 Output Total 350 Balance 450 980 554 Lab Results Last 24 Hours: Laboratory Results - last 24 hr 09/07/19 Range/Units 05:50 WBC 11.31 H (3.98-10.04) K/mm3 RBC 3.83 L (3.98-5.22) M/mm3 Hgb 10.9 L D (11.2-15.7) gm/dl Hct 35.0 (34.1-44.9) % MCV 91.4 (79.4-94.8) fl MCH 28.5 (25.6-32.2) pg MCHC 31.1 L (32.2-35.5) g/dl RDW Std Deviation 48.0 H (36.4-46.3) fL Plt Count 245 D (182-369) K/mm3 MPV 10.2 (9.4-12.3) fl Med Orders - Current: Current Medications Aspirin (Ecotrin) 325 mg PO BID [facility] Bisacodyl (Dulcolax) 5 mg PO DAILY PRN PRN Reason: Constipation Calcium Carbonate (Calcium Carbonate/Vitamin D 600 Mg-200 Unit) 1 tab PO BID [facility] Last Admin: 09/06/19 21:49 Dose: 1 tab Cholecalciferol (Vitamin D3) 5,000 unit PO DAILY [facility] Cyclobenzaprine HCl (Flexeril) 5 mg PO BID PRN PRN Reason: Spasms Last Admin: 09/07/19 02:30 Dose: 5 mg Docusate Sodium (Colace) 100 mg PO BID [facility] Last Admin: 09/06/19 21:48 Dose: 100 mg Famotidine (Pepcid) 20 mg PO Q12H [facility] Last Admin: 09/06/19 21:49 Dose: 20 mg Hydralazine HCl (Apresoline) 10 mg IVPUSH Q6H PRN PRN Reason: Hypertension Cefazolin Sodium/Dextrose 2 gm (/ Premix) 50 mls @ 100 mls/hr IV Q8H [facility] Stop: 09/07/19 09:29 Last Admin: 09/07/19 00:55 Dose: 100 mls/hr Ketorolac Tromethamine (Toradol) 15 mg IVPUSH Q6H PRN PRN Reason: Pain Last Admin: 09/07/19 02:38 Dose: 15 mg Levothyroxine Sodium (Levothyroxine) 75 mcg PO SUTUWETHSA [facility] Last Admin: 09/07/19 06:26 Dose: 75 mcg Levothyroxine Sodium (Synthroid) 50 mcg PO MOFR [facility] Magnesium Hydroxide (Milk Of Magnesia) 30 ml PO BID PRN PRN Reason: Constipation Morphine Sulfate (Morphine) 2 mg IVPUSH Q2H PRN PRN Reason: Breakthrough Pain Multivitamins (Thera) 1 each PO DAILY [facility] Naloxone HCl (Narcan) 0.1 mg IVPUSH Q5M PRN PRN Reason: Oversedation Refresh Drops Ptom 0 each EYEBOTH TID PRN PRN Reason: Dry Eyes Travatan Z 0.004% (Drop Ptom) 1 drop EYEBOTH BEDTIME [facility] Last Admin: 09/06/19 21:49 Dose: 1 drop Ondansetron HCl (Zofran) 4 mg IVPUSH Q6H PRN PRN Reason: Nausea/Vomiting Last Admin: 09/07/19 02:33 Dose: 4 mg Oxycodone/Acetaminophen (Percocet 325-5 Mg) 1 - 2 tab PO Q4H PRN PRN Reason: Pain Last Admin: 09/06/19 21:48 Dose: 1 tab Senna (Senna) 8.6 mg PO BID PRN PRN Reason: Constipation Simvastatin (Zocor) 10 mg PO BEDTIME [facility] Last Admin: 09/06/19 21:48 Dose: 10 mg Timolol Maleate (Timoptic 0.5% Ophth Soln) 0 ml EYEBOTH DAILY [facility] Discontinued Medications Bupivacaine HCl (Sensorcaine-Mpf 0.25%) Confirm Administered Dose 30 ml .ROUTE .STK-MED ONE Stop: 09/06/19 07:11 Last Admin: 09/06/19 10:46 Dose: 30 ml Bupivacaine HCl (Marcaine 0.5%) Confirm Administered Dose 30 ml .ROUTE .STK-MED ONE Stop: 09/06/19 07:46 Bupivacaine HCl (Sensorcaine-Mpf 0.25%) Confirm Administered Dose 10 ml .ROUTE .STK-MED ONE Stop: 09/06/19 08:06 Cefazolin Sodium (Ancef) Confirm Administered Dose 2 gm .ROUTE .STK-MED ONE Stop: 09/06/19 07:11 Last Admin: 09/06/19 10:42 Dose: 2 gm Cefazolin Sodium (Ancef) Confirm Administered Dose 2 gm .ROUTE .STK-MED ONE Stop: 09/06/19 08:50 Morphine Sulfate 8 mg/Epinephrine HCl 0.3 mg/Cefuroxime Sodium 750 mg/Ketorolac Tromethamine 30 mg/Sodium Chloride 7.9 ml 0 mg .XX ASDIRECTED PRN PRN Reason: Pain Stop: 09/06/19 14:00 Last Admin: 09/06/19 10:46 Dose: 788.3 mg Docusate Sodium (Colace) 100 mg PO DAILY [facility] Epinephrine HCl (Adrenalin) Confirm Administered Dose 1 mg .ROUTE .STK-MED ONE Stop: 09/06/19 07:46 Fentanyl (Sublimaze) 50 mcg IVPUSH Q5M PRN PRN Reason: Pain Stop: 09/06/19 13:00 Last Admin: 09/06/19 12:05 Dose: 50 mcg Hydralazine HCl (Apresoline) 10 mg IVPUSH ONETIME ONE Stop: 09/06/19 15:41 Last Admin: 09/06/19 16:14 Dose: 10 mg Lactated Ringer's (Ringers, Lactated) 1,000 mls @ 125 mls/hr IV ASDIRECTED ROSY Stop: 09/06/19 23:00 Last Admin: 09/06/19 11:56 Dose: 125 mls/hr Lidocaine HCl (Xylocaine-Mpf 1%) Confirm Administered Dose 4 mls @ as directed .ROUTE .STK-MED ONE Stop: 09/06/19 08:51 Iodine (Iodine 2% Mild Tincture) Confirm Administered Dose 30 ml .ROUTE .STK- MED ONE Stop: 09/06/19 07:12 Last Admin: 09/06/19 10:41 Dose: 18 ml Ketorolac Tromethamine (Toradol) 15 mg IVPUSH Q6H PRN PRN Reason: Pain Ketorolac Tromethamine (Toradol) 30 mg IVPUSH ONETIME ONE Stop: 09/06/19 12:01 Last Admin: 09/06/19 12:03 Dose: 30 mg Lidocaine/Sodium Bicarbonate (Buffered Lidocaine 1% In Ns 8.4%) 0.25 ml IDERM ONETIME PRN PRN Reason: Prior to IV Start Stop: 09/06/19 18:00 Last Admin: 09/06/19 08:18 Dose: 0.25 ml Midazolam HCl (Versed 1 Mg/Ml) Confirm Administered Dose 2 mg .ROUTE .STK-MED ONE Stop: 09/06/19 08:53 Miscellaneous Medication (Phenylephrine 1 Mg/10 Ml-Ns) Confirm Administered Dose 1 mg IV .STK-MED ONE Stop: 09/06/19 10:04 Propofol (Diprivan 20 Ml) Confirm Administered Dose 400 mg .ROUTE .STK-MED ONE Stop: 09/06/19 08:50 Propofol (Diprivan 20 Ml) Confirm Administered Dose 200 mg .ROUTE .STK-MED ONE Stop: 09/06/19 10:14 Ropivacaine (Naropin 0.5%) Confirm Administered Dose 30 ml .ROUTE .STK-MED ONE Stop: 02/17/20 07:58 Sodium Chloride (Saline Flush) 10 ml FLUSH ASDIRECTED PRN PRN Reason: Keep Vein Open Stop: 09/06/19 18:00 Tranexamic Acid (Cyklokapron) Confirm Administered Dose 1,000 mg .ROUTE .STK- MED ONE Stop: 09/06/19 07:11 Last Admin: 09/06/19 10:51 Dose: 1,000 mg Triamcinolone Acetonide (Kenalog-40) Confirm Administered Dose 80 mg .ROUTE .STK -MED ONE Stop: 09/06/19 08:06 Vancomycin HCl (Vancomycin) Confirm Administered Dose 1 gm .ROUTE .STK-MED ONE Stop: 09/06/19 07:11 Last Admin: 09/06/19 10:51 Dose: 1 gm - Exam Quality Assessment: DVT Prophylaxis. No: Supplemental Oxygen, Urine Catheter General: Alert, Oriented, Cooperative, No Acute Distress HEENT: Pupils Equal, Pupils Reactive, Mucous Membr. Moist/[place] Neck: Supple, Trachea Midline Lungs: Clear to Auscultation, Normal Respiratory Effort Cardiovascular: Regular Rate, Regular Rhythm GI/Abdominal Exam: Normal Bowel Sounds, Soft, Non-Tender, No Distention (Female) Exam: Deferred Back Exam: Normal Inspection, Full Range of Motion Extremities: Normal Capillary Refill, Leg Pain, Limited Range of Motion, Other ( Bandage in place on left leg. Cooling pack in place. ) Peripheral Pulses: 2+: Radial (L), Radial (R), Dorsalis Pedis (L), Dorsalis Pedis (R) Skin: Warm, Dry, Intact Wound/Incisions: Dressing Dry and Intact Neurological: No New Focal Deficit Psy/Mental Status: Alert, Normal Affect, Normal Mood Sepsis Event Note - Evaluation Sepsis Screening Result: No Definite Risk - Focused Exam Vital Signs: Vital Signs Temp Pulse Resp BP Pulse Ox 09/07/19 01:01 97.9 F 103 H 20 148/74 H 93 L Date Exam was Performed: 09/07/19 Time Exam was Performed: 11:56 Consult PN Assessment/Plan POD#: 1 Procedures: Procedures ASSAY OF FREE THYROXINE (08/23/19) ASSAY OF LACTIC ACID (02/24/17) ASSAY OF LIPASE (02/21/17) ASSAY OF MAGNESIUM (02/24/17) ASSAY OF PREALBUMIN (08/20/19) ASSAY THYROID STIM HORMONE (08/23/19) C DIFF AMPLIFIED PROBE (02/24/17) C-REACTIVE PROTEIN (08/06/19) COMPLETE CBC AUTOMATED (11/30/18) COMPLETE CBC W/AUTO DIFF WBC (08/06/19) COMPREHEN METABOLIC PANEL (08/20/19) CT ABD & PELV W/CONTRAST (02/24/17) DRAIN/INJ JOINT/BURSA W/O US (06/18/18) DXA BONE DENSITY AXIAL (11/27/17) ELECTROCARDIOGRAM TRACING (02/21/17) EMERGENCY DEPT VISIT (02/21/17) FIBRIN DEGRADATION QUANT (02/24/17) HYDRATE IV INFUSION ADD-ON (02/21/17) IIV NO PRSV INCREASED AG IM (04/23/18) LAPAROSCOPY APPENDECTOMY (02/21/17) LIPID PANEL (11/30/18) MANUAL THERAPY 1/> REGIONS (10/03/16) METABOLIC PANEL TOTAL CA (08/06/19) MICROBE SUSCEPTIBLE DISK (08/06/19) MICROBE SUSCEPTIBLE ROSALIND (08/06/19) MRI JNT OF LWR EXTRE W/O DYE (09/06/16) OFFICE/OUTPATIENT VISIT EST (08/23/19) OFFICE/OUTPATIENT VISIT NEW (09/04/16) PROTHROMBIN TIME (06/07/19) PT EVAL LOW COMPLEX 20 MIN (10/03/16) ROUTINE VENIPUNCTURE (08/23/19) SCR MAMMO BI INCL CAD (11/27/17) THER/PROPH/DIAG IV INF INIT (02/21/17) THERAPEUTIC EXERCISES (10/03/16) THROMBOPLASTIN TIME PARTIAL (06/07/19) TX/PRO/DX INJ NEW DRUG ADDON (02/21/17) URINALYSIS AUTO W/O SCOPE (08/23/19) URINALYSIS AUTO W/SCOPE (08/06/19) URINE BACTERIA CULTURE (08/06/19) URINE CULTURE/COLONY COUNT (08/06/19) X-RAY EXAM ABDOMEN 1 VIEW (12/18/17) X-RAY EXAM CHEST 2 VIEWS (06/07/19) X-RAY EXAM OF ABDOMEN (02/24/17) (1) S/P total knee arthroplasty SNOMED Code(s): 8918134346642, 692106029, 2014970073768 Code(s): Z96.659 - PRESENCE OF UNSPECIFIED ARTIFICIAL KNEE JOINT Priority: High Current Visit: Yes Qualifiers: Laterality: left Qualified Code(s): Z96.652 - Presence of left artificial knee joint (2) Osteoarthritis SNOMED Code(s): 267545546 Code(s): M19.90 - UNSPECIFIED OSTEOARTHRITIS, UNSPECIFIED SITE Priority: High Current Visit: Yes Qualifiers: Osteoarthritis location: knee Osteoarthritis type: primary Laterality: bilateral Qualified Code(s): M17.0 - Bilateral primary osteoarthritis of knee (3) Dyslipidemia SNOMED Code(s): 479016267 Code(s): E78.5 - HYPERLIPIDEMIA, UNSPECIFIED Current Visit: Yes (4) Osteopenia SNOMED Code(s): 807506069 Code(s): M85.80 - OTH DISRD OF BONE DENSITY AND STRUCTURE, UNSPECIFIED SITE Priority: High Current Visit: Yes Qualifiers: Osteopenia location: multiple sites Qualified Code(s): M85.89 - Other specified disorders of bone density and structure, multiple sites (5) Hypothyroidism SNOMED Code(s): 99956361 Code(s): E03.9 - HYPOTHYROIDISM, UNSPECIFIED Priority: Low Current Visit : No Qualifiers: Hypothyroidism type: unspecified Qualified Code(s): E03.9 - Hypothyroidism , unspecified (6) Uterine cancer SNOMED Code(s): 004742698 Code(s): C55 - MALIGNANT NEOPLASM OF UTERUS, PART UNSPECIFIED Priority: Low Current Visit: No Qualifiers: Malignant neoplasm of uterus location: unspecified site of uterus Qualified Code(s): C55 - Malignant neoplasm of uterus, part unspecified (7) History of ovarian cancer Priority: Low Current Visit: No (8) Glaucoma SNOMED Code(s): 51210732 Code(s): H40.9 - UNSPECIFIED GLAUCOMA Priority: Low Current Visit: No Qualifiers: Glaucoma type: unspecified (9) Vertigo SNOMED Code(s): 831645116 Code(s): R42 - DIZZINESS AND GIDDINESS Priority: Low Current Visit: No (10) Chronic constipation SNOMED Code(s): 738043817 Code(s): K59.09 - OTHER CONSTIPATION Priority: Low Current Visit: No (11) History of postoperative nausea and vomiting SNOMED Code(s): 317421102, 504784050 Code(s): Z87.898 - PERSONAL HISTORY OF OTHER SPECIFIED CONDITIONS Priority : Medium Current Visit: No (12) Macular degeneration SNOMED Code(s): 810906534 Code(s): H35.30 - UNSPECIFIED MACULAR DEGENERATION Priority: Low Current Visit: No Qualifiers: Macular degeneration type: unspecified type (13) GERD (gastroesophageal reflux disease) SNOMED Code(s): 786897698 Code(s): K21.9 - GASTRO-ESOPHAGEAL REFLUX DISEASE WITHOUT ESOPHAGITIS Priority: Low Current Visit: No Qualifiers: Esophagitis presence: esophagitis presence not specified Qualified Code(s) : K21.9 - Gastro-esophageal reflux disease without esophagitis (14) Recurrent UTI SNOMED Code(s): 196840637 Code(s): N39.0 - URINARY TRACT INFECTION, SITE NOT SPECIFIED Priority: Low Current Visit: No Problem List Initiated/Reviewed/Updated: Yes My Orders Last 24 Hours: My Active Orders 09/06/19 13:15 Dextran 70/Hypromellose [Artificial Tears] 0 each EYEBOTH TID PRN 09/06/19 15:33 hydrALAZINE [Apresoline] 10 mg IVPUSH Q6H PRN 09/06/19 17:22 Consult to Case Management/Liner Reroll Tender [CONS] Routine 09/06/19 21:00 Calcium Carbonate/Vitamin D3 [Calcium Carbonate/Vitamin D 600 MG-200 Unit] 1 tab PO BID Simvastatin [Zocor] 10 mg PO BEDTIME Travoprost [Travatan Z] 1 drop EYEBOTH BEDTIME 09/07/19 06:00 Levothyroxine 75 mcg PO SUTUWETHSA 09/07/19 09:00 Cholecalciferol (Vitamin D3) [Vitamin D3] 5,000 unit PO DAILY Multivitamins,Therapeutic [Thera] 1 each PO DAILY timoloL maleate [Timoptic 0.5% Ophth Soln] 0 ml EYEBOTH DAILY 09/10/19 06:00 Levothyroxine [Synthroid] 50 mcg PO MOFR Plan: I/P: Acute: S/P left total knee arthroplasty with right knee cortisone injection- post- operative day 1 -DVT prophylaxis and pain management per primary care team -PT/OT -IS/RT -Monitor oxygen saturation -Titrate oxygen as needed -Home medications reviewed -Vital signs stable -Monitor labs -Pre-operative Hgb was 14.0; Now 10.9 -Pre-operative GFR was >60; Now 53 -Pre-operative WBC was 10.48; Now 11.31 -Pre-operative creatinine was 0.8; Now 1.0 -Pre-operative BUN was 19; Now 21 Osteoarthritis of bilateral knee -Pain management per primary care team Chronic: OA Dyslipidemia Osteopenia Hypothyroidism Uterine cancer ovarian cancer s/p radiation in 1990 glaucoma vertigo chronic constipation atelectasis post-operative nausea and vomiting GERD recurrent UTIs macular degeneration Plan: CM for discharge planning GI prophylaxis Home medications as indicated Other orders as listed above Routine AM labs She is a full code. Her PCP is Dr. Douglas From a hospitalist standpoint Rebekah is doing well. She has been up ambulating and working with therapies. Her pain is controlled. She is off of oxygen and has urinated. She has been utilizing her IS. Her labs and vital signs remain stable. She is cleared from discharge pending primary team and PT/OT agreement. We have encouraged oral hydration. Of note: patients glucose this AM was elevated at 161. A1C was obtained and was 6.20%. PCP can continue to monitor this after discharge. Thank you for allowing us to participate in the care of this patient!!
--- NOTE | 2019-09-07 07:45 | PCM.SURGPN ---
- General Info Date of Service: 09/07/19 POD#: 1 Functional Status: Reports: Pain Controlled, Tolerating Diet, Ambulating, Urinating - Patient Data Vitals - Most Recent: Last Vital Signs Temp 97.9 F 09/07/19 01:01 Pulse 103 H 09/07/19 01:01 Resp 20 09/07/19 01:01 BP 148/74 H 09/07/19 01:01 Pulse Ox 93 L 09/07/19 01:01 Weight - Most Recent: 135 lb 3.2 oz I&O - Last 24 Hours: Intake & Output 09/06/19 09/07/19 09/07/19 22:59 06:59 14:59 Intake Total 980 904 Output Total 350 Balance 980 554 Lab Results Last 24 Hrs: Laboratory Results - last 24 hr 09/07/19 09/07/19 Range/Units 05:50 05:50 WBC 11.31 H (3.98-10.04) K/mm3 RBC 3.83 L (3.98-5.22) M/mm3 Hgb 10.9 L D (11.2-15.7) gm/dl Hct 35.0 (34.1-44.9) % MCV 91.4 (79.4-94.8) fl MCH 28.5 (25.6-32.2) pg MCHC 31.1 L (32.2-35.5) g/dl RDW Std Deviation 48.0 H (36.4-46.3) fL Plt Count 245 D (182-369) K/mm3 MPV 10.2 (9.4-12.3) fl Sodium 136 (136-145) mEq/L Potassium 3.9 (3.5-5.1) mEq/L Chloride 101 (98-107) mEq/L Carbon Dioxide 25 (21-32) mEq/L Anion Gap 13.9 (5-15) BUN 21 H (7-18) mg/dL Creatinine 1.0 (0.55-1.02) mg/dL Est Cr Clr Drug Dosing 31.15 mL/min Estimated GFR (MDRD) 53 (>60) mL/min BUN/Creatinine Ratio 21.0 H (14-18) Glucose 161 H (83-115) mg/dL Calcium 8.6 (8.5-10.1) mg/dL Total Bilirubin 0.3 (0.2-1.0) mg/dL AST 25 (15-37) U/L ALT 17 (14-59) U/L Alkaline Phosphatase 66 (46-116) U/L Total Protein 5.9 L (6.4-8.2) g/dl Albumin 2.6 L (3.4-5.0) g/dl Globulin 3.3 gm/dL Albumin/Globulin Ratio 0.8 L (1-2) Med Orders - Current: Current Medications Aspirin (Ecotrin) 325 mg PO BID [facility] Bisacodyl (Dulcolax) 5 mg PO DAILY PRN PRN Reason: Constipation Calcium Carbonate (Calcium Carbonate/Vitamin D 600 Mg-200 Unit) 1 tab PO BID [facility] Last Admin: 09/06/19 21:49 Dose: 1 tab Cholecalciferol (Vitamin D3) 5,000 unit PO DAILY [facility] Cyclobenzaprine HCl (Flexeril) 5 mg PO BID PRN PRN Reason: Spasms Last Admin: 09/07/19 02:30 Dose: 5 mg Docusate Sodium (Colace) 100 mg PO BID [facility] Last Admin: 09/06/19 21:48 Dose: 100 mg Famotidine (Pepcid) 20 mg PO Q12H [facility] Last Admin: 09/06/19 21:49 Dose: 20 mg Hydralazine HCl (Apresoline) 10 mg IVPUSH Q6H PRN PRN Reason: Hypertension Cefazolin Sodium/Dextrose 2 gm (/ Premix) 50 mls @ 100 mls/hr IV Q8H [facility] Stop: 09/07/19 09:29 Last Admin: 09/07/19 00:55 Dose: 100 mls/hr Ketorolac Tromethamine (Toradol) 15 mg IVPUSH Q6H PRN PRN Reason: Pain Last Admin: 09/07/19 02:38 Dose: 15 mg Levothyroxine Sodium (Levothyroxine) 75 mcg PO SUTUWETHSA [facility] Last Admin: 09/07/19 06:26 Dose: 75 mcg Levothyroxine Sodium (Synthroid) 50 mcg PO MOFR [facility] Magnesium Hydroxide (Milk Of Magnesia) 30 ml PO BID PRN PRN Reason: Constipation Morphine Sulfate (Morphine) 2 mg IVPUSH Q2H PRN PRN Reason: Breakthrough Pain Multivitamins (Thera) 1 each PO DAILY [facility] Naloxone HCl (Narcan) 0.1 mg IVPUSH Q5M PRN PRN Reason: Oversedation Refresh Drops Ptom 0 each EYEBOTH TID PRN PRN Reason: Dry Eyes Travatan Z 0.004% (Drop Ptom) 1 drop EYEBOTH BEDTIME [facility] Last Admin: 09/06/19 21:49 Dose: 1 drop Ondansetron HCl (Zofran) 4 mg IVPUSH Q6H PRN PRN Reason: Nausea/Vomiting Last Admin: 09/07/19 02:33 Dose: 4 mg Oxycodone/Acetaminophen (Percocet 325-5 Mg) 1 - 2 tab PO Q4H PRN PRN Reason: Pain Last Admin: 09/06/19 21:48 Dose: 1 tab Senna (Senna) 8.6 mg PO BID PRN PRN Reason: Constipation Simvastatin (Zocor) 10 mg PO BEDTIME [facility] Last Admin: 09/06/19 21:48 Dose: 10 mg Timolol Maleate (Timoptic 0.5% Ophth Soln) 0 ml EYEBOTH DAILY [facility] Discontinued Medications Bupivacaine HCl (Sensorcaine-Mpf 0.25%) Confirm Administered Dose 30 ml .ROUTE .STK-MED ONE Stop: 09/06/19 07:11 Last Admin: 09/06/19 10:46 Dose: 30 ml Bupivacaine HCl (Marcaine 0.5%) Confirm Administered Dose 30 ml .ROUTE .STK-MED ONE Stop: 09/06/19 07:46 Bupivacaine HCl (Sensorcaine-Mpf 0.25%) Confirm Administered Dose 10 ml .ROUTE .STK-MED ONE Stop: 09/06/19 08:06 Cefazolin Sodium (Ancef) Confirm Administered Dose 2 gm .ROUTE .STK-MED ONE Stop: 09/06/19 07:11 Last Admin: 09/06/19 10:42 Dose: 2 gm Cefazolin Sodium (Ancef) Confirm Administered Dose 2 gm .ROUTE .STK-MED ONE Stop: 09/06/19 08:50 Morphine Sulfate 8 mg/Epinephrine HCl 0.3 mg/Cefuroxime Sodium 750 mg/Ketorolac Tromethamine 30 mg/Sodium Chloride 7.9 ml 0 mg .XX ASDIRECTED PRN PRN Reason: Pain Stop: 09/06/19 14:00 Last Admin: 02/17/20 10:46 Dose: 788.3 mg Docusate Sodium (Colace) 100 mg PO DAILY [facility] Epinephrine HCl (Adrenalin) Confirm Administered Dose 1 mg .ROUTE .STK-MED ONE Stop: 09/06/19 07:46 Fentanyl (Sublimaze) 50 mcg IVPUSH Q5M PRN PRN Reason: Pain Stop: 09/06/19 13:00 Last Admin: 09/06/19 12:05 Dose: 50 mcg Hydralazine HCl (Apresoline) 10 mg IVPUSH ONETIME ONE Stop: 09/06/19 15:41 Last Admin: 09/06/19 16:14 Dose: 10 mg Lactated Ringer's (Ringers, Lactated) 1,000 mls @ 125 mls/hr IV ASDIRECTED [facility] Stop: 09/06/19 23:00 Last Admin: 09/06/19 11:56 Dose: 125 mls/hr Lidocaine HCl (Xylocaine-Mpf 1%) Confirm Administered Dose 4 mls @ as directed .ROUTE .STK-MED ONE Stop: 09/06/19 08:51 Iodine (Iodine 2% Mild Tincture) Confirm Administered Dose 30 ml .ROUTE .STK- MED ONE Stop: 09/06/19 07:12 Last Admin: 09/06/19 10:41 Dose: 18 ml Ketorolac Tromethamine (Toradol) 15 mg IVPUSH Q6H PRN PRN Reason: Pain Ketorolac Tromethamine (Toradol) 30 mg IVPUSH ONETIME ONE Stop: 09/06/19 12:01 Last Admin: 09/06/19 12:03 Dose: 30 mg Lidocaine/Sodium Bicarbonate (Buffered Lidocaine 1% In Ns 8.4%) 0.25 ml IDERM ONETIME PRN PRN Reason: Prior to IV Start Stop: 09/06/19 18:00 Last Admin: 09/06/19 08:18 Dose: 0.25 ml Midazolam HCl (Versed 1 Mg/Ml) Confirm Administered Dose 2 mg .ROUTE .STK-MED ONE Stop: 09/06/19 08:53 Miscellaneous Medication (Phenylephrine 1 Mg/10 Ml-Ns) Confirm Administered Dose 1 mg IV .STK-MED ONE Stop: 09/06/19 10:04 Propofol (Diprivan 20 Ml) Confirm Administered Dose 400 mg .ROUTE .STK-MED ONE Stop: 09/06/19 08:50 Propofol (Diprivan 20 Ml) Confirm Administered Dose 200 mg .ROUTE .STK-MED ONE Stop: 09/06/19 10:14 Ropivacaine (Naropin 0.5%) Confirm Administered Dose 30 ml .ROUTE .STK-MED ONE Stop: 09/06/19 07:58 Sodium Chloride (Saline Flush) 10 ml FLUSH ASDIRECTED PRN PRN Reason: Keep Vein Open Stop: 09/06/19 18:00 Tranexamic Acid (Cyklokapron) Confirm Administered Dose 1,000 mg .ROUTE .STK- MED ONE Stop: 09/06/19 07:11 Last Admin: 09/06/19 10:51 Dose: 1,000 mg Triamcinolone Acetonide (Kenalog-40) Confirm Administered Dose 80 mg .ROUTE .STK -MED ONE Stop: 09/06/19 08:06 Vancomycin HCl (Vancomycin) Confirm Administered Dose 1 gm .ROUTE .STK-MED ONE Stop: 09/06/19 07:11 Last Admin: 09/06/19 10:51 Dose: 1 gm - Exam Wound/Incisions: Dressing Dry and Intact General: Alert, Cooperative, No Acute Distress Lungs: Normal Respiratory Effort Extremities: Other (NVS intact for BLE. Magdalena's negative for BLE.) Sepsis Event Note - Evaluation Sepsis Screening Result: No Definite Risk - Focused Exam Vital Signs: Vital Signs Temp Pulse Resp BP Pulse Ox 09/07/19 01:01 97.9 F 103 H 20 148/74 H 93 L Date Exam was Performed: 09/07/19 Time Exam was Performed: 07:44 - Problem List Review Problem List Initiated/Reviewed/Updated: Yes - My Orders Last 24 Hours: Active Orders 24 hr Category Date Time Status Patient Status [ADT] Routine ADT 09/06/19 07:17 Active Antiembolic Devices [RC] BID Care 09/06/19 07:18 Active Oxygen Therapy [RC] PRN Care 09/06/19 07:17 Active Pulse Oximetry [RC] ASDIRECTED Care 09/06/19 10:08 Active RT Incentive Spirometry [RC] Q1HWA Care 09/06/19 07:14 Active Vital Signs [RC] Q4HR Care 09/06/19 07:17 Active Consult to Case Management/Bulb Filler [CONS] Cons 09/06/19 17:22 Active Routine Consult to Physician [CONS] Routine Cons 09/06/19 07:17 Active OT Evaluation and Treatment [CONS] Routine Cons 09/06/19 07:14 Active PT Evaluation and Treatment [CONS] Routine Cons 09/06/19 07:14 Active Regular Diet [DIET] Diet 09/06/19 Lunch Active Acetaminophen/oxyCODONE [Percocet 325-5 MG] Med 09/06/19 07:15 Active 1 - 2 tab PO Q4H PRN Aspirin [Ecotrin] Med 09/07/19 09:00 Active 325 mg PO BID Calcium Carbonate/Vitamin D3 [Calcium Carbonate/Vitamin Med 09/06/19 21:00 Active D 600 MG-200 Unit] 1 tab PO BID Cholecalciferol (Vitamin D3) [Vitamin D3] Med 09/07/19 09:00 Active 5,000 unit PO DAILY Cyclobenzaprine [Flexeril] Med 09/06/19 21:00 Active 5 mg PO BID PRN Dextran 70/Hypromellose [Artificial Tears] Med 09/06/19 13:15 Active 0 each EYEBOTH TID PRN Docusate Sodium [Colace] Med 09/06/19 21:00 Active 100 mg PO BID Famotidine [Pepcid] Med 09/06/19 21:00 Active 20 mg PO Q12H Ketorolac [Toradol] Med 09/06/19 18:00 Active 15 mg IVPUSH Q6H PRN Levothyroxine Med 09/07/19 06:00 Active 75 mcg PO SUTUWETHSA Levothyroxine [Synthroid] Med 09/10/19 06:00 Active 50 mcg PO MOFR Magnesium Hydroxide [Milk of Magnesia] Med 09/06/19 07:17 Active 30 ml PO BID PRN Morphine Med 09/06/19 07:17 Active 2 mg IVPUSH Q2H PRN Multivitamins,Therapeutic [Thera] Med 09/07/19 09:00 Active 1 each PO DAILY Naloxone [Narcan] Med 09/06/19 07:17 Active 0.1 mg IVPUSH Q5M PRN Ondansetron [Zofran] Med 09/06/19 07:17 Active 4 mg IVPUSH Q6H PRN Sennosides [Senna] Med 09/06/19 07:17 Active 8.6 mg PO BID PRN Simvastatin [Zocor] Med 09/06/19 21:00 Active 10 mg PO BEDTIME Travoprost [Travatan Z] Med 09/06/19 21:00 Active 1 drop EYEBOTH BEDTIME bisacodyL [Dulcolax] Med 09/06/19 07:17 Active 5 mg PO DAILY PRN ceFAZolin [Ancef] 2 gm Med 09/06/19 17:00 Active Premix Bag 1 bag IV Q8H hydrALAZINE [Apresoline] Med 09/06/19 15:33 Active 10 mg IVPUSH Q6H PRN timoloL maleate [Timoptic 0.5% Ophth Soln] Med 09/07/19 09:00 Active 0 ml EYEBOTH DAILY Antiembolic Hose [OM.PC] Per Unit Routine Oth 09/06/19 07:20 Ordered Ice Therapy [OM.PC] Per Unit Routine Oth 09/06/19 07:18 Ordered Sequential Compression Device [OM.PC] Per Unit Routine Oth 09/06/19 07:15 Ordered Resuscitation Status Routine Resus Stat 09/06/19 07:17 Ordered Medication Orders Aspirin (Ecotrin) 325 mg PO BID [facility] Bisacodyl (Dulcolax) 5 mg PO DAILY PRN PRN Reason: Constipation Calcium Carbonate (Calcium Carbonate/Vitamin D 600 Mg-200 Unit) 1 tab PO BID [facility] Last Admin: 09/06/19 21:49 Dose: 1 tab Cholecalciferol (Vitamin D3) 5,000 unit PO DAILY [facility] Cyclobenzaprine HCl (Flexeril) 5 mg PO BID PRN PRN Reason: Spasms Last Admin: 09/07/19 02:30 Dose: 5 mg Docusate Sodium (Colace) 100 mg PO BID [facility] Last Admin: 09/06/19 21:48 Dose: 100 mg Famotidine (Pepcid) 20 mg PO Q12H [facility] Last Admin: 09/06/19 21:49 Dose: 20 mg Hydralazine HCl (Apresoline) 10 mg IVPUSH Q6H PRN PRN Reason: Hypertension Cefazolin Sodium/Dextrose 2 gm (/ Premix) 50 mls @ 100 mls/hr IV Q8H [facility] Stop: 09/07/19 09:29 Last Admin: 09/07/19 00:55 Dose: 100 mls/hr Infusion: 09/06/19 16:44 Dose: 100 mls/hr Admin: 09/06/19 16:14 Dose: 100 mls/hr Ketorolac Tromethamine (Toradol) 15 mg IVPUSH Q6H PRN PRN Reason: Pain Last Admin: 09/07/19 02:38 Dose: 15 mg Levothyroxine Sodium (Levothyroxine) 75 mcg PO SUTUWETHSA [facility] Last Admin: 09/07/19 06:26 Dose: 75 mcg Levothyroxine Sodium (Synthroid) 50 mcg PO MOFR [facility] Magnesium Hydroxide (Milk Of Magnesia) 30 ml PO BID PRN PRN Reason: Constipation Morphine Sulfate (Morphine) 2 mg IVPUSH Q2H PRN PRN Reason: Breakthrough Pain Multivitamins (Thera) 1 each PO DAILY [facility] Naloxone HCl (Narcan) 0.1 mg IVPUSH Q5M PRN PRN Reason: Oversedation Refresh Drops Ptom 0 each EYEBOTH TID PRN PRN Reason: Dry Eyes Travatan Z 0.004% (Drop Ptom) 1 drop EYEBOTH BEDTIME [facility] Last Admin: 09/06/19 21:49 Dose: 1 drop Ondansetron HCl (Zofran) 4 mg IVPUSH Q6H PRN PRN Reason: Nausea/Vomiting Last Admin: 09/07/19 02:33 Dose: 4 mg Admin: 09/06/19 16:56 Dose: 4 mg Oxycodone/Acetaminophen (Percocet 325-5 Mg) 1 - 2 tab PO Q4H PRN PRN Reason: Pain Last Admin: 09/06/19 21:48 Dose: 1 tab Admin: 09/06/19 16:13 Dose: 2 tab Admin: 09/06/19 12:00 Dose: 2 tab Senna (Senna) 8.6 mg PO BID PRN PRN Reason: Constipation Simvastatin (Zocor) 10 mg PO BEDTIME [facility] Last Admin: 09/06/19 21:48 Dose: 10 mg Timolol Maleate (Timoptic 0.5% Ophth Soln) 0 ml EYEBOTH DAILY [facility] - Assessment Assessment (Free Text/Narrative):: POD#1 - 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 Hgb 10.9. 2. 325mg ASA PO BID, frequent mobility, TEDs. 3. Discharge to [facility] today if cleared by Hospitalist service and inpatient therapy goals met. The pt's case was discussed with Dr. Calvillo.
--- NOTE | 2019-09-07 08:18 | PCM48HPAN ---
Post Anesthesia Note - EVALUATION WITHIN 48HRS OF ANESTHETIC Vital Signs in Normal Range: Yes Patient Participated in Evaluation: Yes Respiratory Function Stable: Yes Airway Patent: Yes Cardiovascular Function Stable: Yes Hydration Status Stable: Yes Pain Control Satisfactory: Yes Nausea and Vomiting Control Satisfactory: Yes Mental Status Recovered: Yes Vital Signs: Last Vital Signs Temp 36.6 C 09/07/19 01:01 Pulse 103 H 09/07/19 01:01 Resp 20 09/07/19 01:01 BP 148/74 H 09/07/19 01:01 Pulse Ox 93 L 09/07/19 01:01 - COMMENTS/OBSERVATIONS Free Text/Narrative:: no anesthesia complications noted
[2019-09-07] MEDS ORDERED: Aspirin 325 MG Tab.EC PO SCH (09:00)
[2019-09-07] MEDS ORDERED: Docusate Sodium 100 MG Cap PO SCH (09:00)
[2019-09-07] MEDS ORDERED: Multivitamins,Therapeutic Tab PO SCH (09:00)
[2019-09-07] MEDS ORDERED: Cholecalciferol (Vitamin D3) 5,000 UNIT Tab PO SCH (09:00)
[2019-09-07] MEDS ORDERED: TIMOLOL MALEATE 0.5% EYEBOTH SCH (09:00)
[2019-09-07 09:04] LABS: HEMOGLOBIN A1C 6.2 % (4.50-6.20)
[2019-09-07] MEDS: Docusate Sodium 100 MG Cap PO SCH (09:04)
[2019-09-07] MEDS: Acetaminophen/oxyCODONE 325-5 MG Tab PO PRN (09:04)
[2019-09-07] MEDS: Calcium Carbonate/Vitamin D3 600 MG-200 Units Tab PO SCH (09:04)
[2019-09-07 11:49] VITALS: BP 159/68; PULSE 95
[2019-09-07] MEDS ORDERED: Famotidine 20 MG Tab PO SCH (21:00)
--- NOTE | 2019-09-08 11:23 | PCM.DCSUM1 ---
Discharge Summary - Hospital Course Brief History: Rebekah is an 83 yo female who underwent left TKA with right knee cortisone injection with Dr. Calvillo on 09-06-2019. The procedure was completed under spinal anesthesia with sedation. The pt tolerated the procedure well and was admitted to the Medical-Surgical Unit. Medical management was provided by the Hospitalist service. The pt's Hgb on POD#1 was 10.9. On POD#1, 325mg ASA BID was initiated for VTE prophylaxis. SCDs and TEDs were also ordered. A Mepilex dressing was placed at the incision site at the time of surgery and remained clean and dry. The pt participated in P.T. and O.T. and progressed well. The pt was allowed to WBAT and used a FWW for mobility. On POD#1, the pt was deemed appropriate to discharge to [facility] for continued rehabilitation. - Discharge Data Discharge Date: 09/07/19 Discharge Disposition: Home, Self-Care 01 Condition: Good - Referral to Home Health Primary Care Physician: Shayla Douglas MD - Patient Summary/Data Consults: Consultations 09/06/19 07:14 OT Evaluation and Treatment [CONS] Routine PT Evaluation and Treatment [CONS] Routine 09/06/19 07:17 Consult to Physician [CONS] Routine 09/06/19 17:22 Consult to Case Management/Seismograph Shooter [CONS] Routine - Patient Instructions Diet: Usual Diet as Tolerated Activity: Apply Ice, As Tolerated, Elevate Extremity, Full Weight Bearing Driving: Do Not Drive Showering/Bathing: May Shower Wound/Incision Care: Keep Operative Site/Wound Site Clean and Dry, Do NOT Change Dressing Notify Provider of: Fever, Increased Pain, Swelling and Redness, Drainage, Nausea and/or Vomiting Other/Special Instructions: Please get up and moving around EVERY HOUR while awake. This helps to prevent blood clots. Please use your walker and have help with mobility as needed. Take a short walk every hour while awake. Please take 325mg Aspirin TWICE daily. The aspirin is being used for blood clot prevention and not for pain management so please do not miss a dose of the medication. You could use a medication like Pepcid or Tagamet and a medication like Prilosec or Nexium to protect your stomach while you are using the aspirin. Please complete the exercises that you learned during the Hospital stay. Schedule for physical therapy. Use the pain medication as needed. The medication may cause drowsiness and constipation. Contact your primary care provider for instructions if you are constipated. You may use a stool softener like docusate sodium or Colace 100mg twice daily and/or a laxative like Miralax daily for constipation. Increase your water and fiber intake while you are using the pain medication. Discontinue use of the pain medication as soon as able. Please do not use other medications that may cause drowsiness (other pain medications, anxiety pills, cold medications, sleeping pills, etc) while using the prescription pain medication. Do not use alcohol while using the pain medication. You may use acetaminophen or Tylenol for pain management, however, please ensure you are not using over 4000 mg or 4 grams of acetaminophen per day from all sources. Your pain medication has 325mg of acetaminophen per tablet. At this time, please do not use ibuprofen (Motrin, Advil) or naproxen (Aleve) for pain management as you are using the aspirin. When the aspirin course is completed in 4 to 6 weeks, you could use ibuprofen or naproxen for pain management (if this is allowed by your primary care provider). Wear the JOVITA hose during the day and you may remove these at night. Elevate the limb to decrease swelling. Place ice to the area often. Place a towel between your skin and the blue pad. Use the incentive spirometer often. Take deep breaths throughout the day. Please keep the dressing in place until follow-up. Notify the Clinic if the dressing becomes saturated. Increase your protein intake while you are healing. If you have diabetes, please closely monitor your blood sugars and notify your primary care provider with abnormal values. Elevated blood sugars increases the risk of infection. Call the Clinic with questions or concerns - [phone]. - Discharge Plan *PRESCRIPTION DRUG MONITORING PROGRAM REVIEWED*: No *COPY OF PRESCRIPTION DRUG MONITORING REPORT IN PATIENT ANA MARIA: No Prescriptions/Med Rec: Acetaminophen/oxyCODONE [Percocet 325-5 MG] 1 - 2 tab PO Q4H PRN #60 tablet PRN Reason: Pain Aspirin [Ecotrin EC] 325 mg PO BID #84 tab.ec Home Medications: Home Meds Calcium Carbonate/Vitamin D3 [Calcium 500 + Vit D Caplet] 1 each PO BID [History] Dextran 70/Hypromellose [Artificial Tears] 1 each OP TID PRN 08/04/17 [History] Docusate Sodium [Colace] 100 mg PO DAILY 02/21/17 [History] Levothyroxine 75 mcg PO SUTUWETHSA 02/21/17 [History] Levothyroxine [Synthroid] 50 mcg PO MOFR 02/21/17 [History] Lovastatin 20 mg PO BEDTIME 02/21/17 [History] Multivitamin [Multi-Vitamin Daily] 1 each PO DAILY 02/21/17 [History] Timolol Maleate [Timoptic 0.5% Ophth Soln] 1 drop EYEBOTH DAILY 02/21/17 [ History] Travoprost [Travatan Z] 1 drop EYEBOTH BEDTIME 02/21/17 [History] Cholecalciferol (Vitamin D3) [Vitamin D3] 5,000 unit PO DAILY 09/03/19 [History] Vit C/E/Zn/Coppr/Lutein/Zeaxan [Preservision Areds 2 Softgel] 1 cap PO BID 09/03 [History] Acetaminophen/oxyCODONE [Percocet 325-5 MG] 1 - 2 tab PO Q4H PRN #60 tablet [Rx] Aspirin [Ecotrin EC] 325 mg PO BID #84 tab.ec 09/07/19 [Rx] Famotidine [Pepcid] 20 mg PO Q12H tablet 09/07/19 [Rx] Magnesium Hydroxide [Milk of Magnesia] 30 ml PO BID PRN cup 09/07/19 [Rx] Sennosides [Senna] 8.6 mg PO BID PRN tablet 09/07/19 [Rx] bisacodyL [Dulcolax] 5 mg PO DAILY PRN tablet 09/07/19 [Rx] Patient Handouts: Total Knee Replacement, [id number] Referrals: Shayla Douglas MD [Primary Care Provider] - Parris Lagos, PAJerardoC [Physician Cath Lab] - - Discharge Summary/Plan Comment DC Time >30 min.: No - Patient Data Vitals - Most Recent: Last Vital Signs Temp 98.1 F 09/07/19 11:14 Pulse 95 09/07/19 11:14 Resp 24 H 09/07/19 11:14 BP 159/68 H 09/07/19 11:14 Pulse Ox 96 09/07/19 11:14 Weight - Most Recent: 126 lb 15.992 oz I&O - Last 24 hours: Intake & Output 09/07/19 09/08/19 09/08/19 22:59 06:59 14:59 Intake Total 60 Balance 60 Med Orders - Current: Current Medications Discontinued Medications Aspirin (Ecotrin) 325 mg PO BID [facility] Last Admin: 09/07/19 09:04 Dose: 325 mg Bisacodyl (Dulcolax) 5 mg PO DAILY PRN PRN Reason: Constipation Bupivacaine HCl (Sensorcaine-Mpf 0.25%) Confirm Administered Dose 30 ml .ROUTE .STK-MED ONE Stop: 09/06/19 07:11 Last Admin: 09/06/19 10:46 Dose: 30 ml Bupivacaine HCl (Marcaine 0.5%) Confirm Administered Dose 30 ml .ROUTE .STK-MED ONE Stop: 09/06/19 07:46 Bupivacaine HCl (Sensorcaine-Mpf 0.25%) Confirm Administered Dose 10 ml .ROUTE .STK-MED ONE Stop: 09/06/19 08:06 Calcium Carbonate (Calcium Carbonate/Vitamin D 600 Mg-200 Unit) 1 tab PO BID [facility] Last Admin: 09/07/19 09:04 Dose: 1 tab Cefazolin Sodium (Ancef) Confirm Administered Dose 2 gm .ROUTE .STK-MED ONE Stop: 09/06/19 07:11 Last Admin: 09/06/19 10:42 Dose: 2 gm Cefazolin Sodium (Ancef) Confirm Administered Dose 2 gm .ROUTE .STK-MED ONE Stop: 09/06/19 08:50 Cholecalciferol (Vitamin D3) 5,000 unit PO DAILY [facility] Last Admin: 09/07/19 09:04 Dose: 5,000 unit Morphine Sulfate 8 mg/Epinephrine HCl 0.3 mg/Cefuroxime Sodium 750 mg/Ketorolac Tromethamine 30 mg/Sodium Chloride 7.9 ml 0 mg .XX ASDIRECTED PRN PRN Reason: Pain Stop: 09/06/19 14:00 Last Admin: 09/06/19 10:46 Dose: 788.3 mg Cyclobenzaprine HCl (Flexeril) 5 mg PO BID PRN PRN Reason: Spasms Last Admin: 09/07/19 02:30 Dose: 5 mg Docusate Sodium (Colace) 100 mg PO BID [facility] Last Admin: 09/07/19 09:04 Dose: 100 mg Docusate Sodium (Colace) 100 mg PO DAILY [facility] Epinephrine HCl (Adrenalin) Confirm Administered Dose 1 mg .ROUTE .STK-MED ONE Stop: 09/06/19 07:46 Famotidine (Pepcid) 20 mg PO Q12H [facility] Last Admin: 09/06/19 21:49 Dose: 20 mg Famotidine (Pepcid) 20 mg PO BEDTIME [facility] Fentanyl (Sublimaze) 50 mcg IVPUSH Q5M PRN PRN Reason: Pain Stop: 09/06/19 13:00 Last Admin: 09/06/19 12:05 Dose: 50 mcg Hydralazine HCl (Apresoline) 10 mg IVPUSH ONETIME ONE Stop: 09/06/19 15:41 Last Admin: 09/06/19 16:14 Dose: 10 mg Hydralazine HCl (Apresoline) 10 mg IVPUSH Q6H PRN PRN Reason: Hypertension Lactated Ringer's (Ringers, Lactated) 1,000 mls @ 125 mls/hr IV ASDIRECTED [facility] Stop: 09/06/19 23:00 Last Admin: 09/06/19 11:56 Dose: 125 mls/hr Cefazolin Sodium/Dextrose 2 gm (/ Premix) 50 mls @ 100 mls/hr IV Q8H [facility] Stop: 09/07/19 09:29 Last Admin: 09/07/19 09:03 Dose: 100 mls/hr Lidocaine HCl (Xylocaine-Mpf 1%) Confirm Administered Dose 4 mls @ as directed .ROUTE .STK-MED ONE Stop: 09/06/19 08:51 Iodine (Iodine 2% Mild Tincture) Confirm Administered Dose 30 ml .ROUTE .STK- MED ONE Stop: 09/06/19 07:12 Last Admin: 09/06/19 10:41 Dose: 18 ml Ketorolac Tromethamine (Toradol) 15 mg IVPUSH Q6H PRN PRN Reason: Pain Ketorolac Tromethamine (Toradol) 30 mg IVPUSH ONETIME ONE Stop: 09/06/19 12:01 Last Admin: 09/06/19 12:03 Dose: 30 mg Ketorolac Tromethamine (Toradol) 15 mg IVPUSH Q6H PRN PRN Reason: Pain Last Admin: 09/07/19 10:49 Dose: 15 mg Levothyroxine Sodium (Levothyroxine) 75 mcg PO SUTUWETHSA [facility] Last Admin: 09/07/19 06:26 Dose: 75 mcg Levothyroxine Sodium (Synthroid) 50 mcg PO MOFR [facility] Lidocaine/Sodium Bicarbonate (Buffered Lidocaine 1% In Ns 8.4%) 0.25 ml IDERM ONETIME PRN PRN Reason: Prior to IV Start Stop: 09/06/19 18:00 Last Admin: 09/06/19 08:18 Dose: 0.25 ml Magnesium Hydroxide (Milk Of Magnesia) 30 ml PO BID PRN PRN Reason: Constipation Midazolam HCl (Versed 1 Mg/Ml) Confirm Administered Dose 2 mg .ROUTE .STK-MED ONE Stop: 09/06/19 08:53 Miscellaneous Medication (Phenylephrine 1 Mg/10 Ml-Ns) Confirm Administered Dose 1 mg IV .STK-MED ONE Stop: 09/06/19 10:04 Morphine Sulfate (Morphine) 2 mg IVPUSH Q2H PRN PRN Reason: Breakthrough Pain Multivitamins (Thera) 1 each PO DAILY [facility] Last Admin: 09/07/19 09:04 Dose: 1 each Naloxone HCl (Narcan) 0.1 mg IVPUSH Q5M PRN PRN Reason: Oversedation Refresh Drops Ptom 0 each EYEBOTH TID PRN PRN Reason: Dry Eyes Travatan Z 0.004% (Drop Ptom) 1 drop EYEBOTH BEDTIME [facility] Last Admin: 09/06/19 21:49 Dose: 1 drop Ondansetron HCl (Zofran) 4 mg IVPUSH Q6H PRN PRN Reason: Nausea/Vomiting Last Admin: 09/07/19 02:33 Dose: 4 mg Oxycodone/Acetaminophen (Percocet 325-5 Mg) 1 - 2 tab PO Q4H PRN PRN Reason: Pain Last Admin: 09/07/19 09:04 Dose: 1 tab Propofol (Diprivan 20 Ml) Confirm Administered Dose 400 mg .ROUTE .STK-MED ONE Stop: 09/06/19 08:50 Propofol (Diprivan 20 Ml) Confirm Administered Dose 200 mg .ROUTE .STK-MED ONE Stop: 09/06/19 10:14 Ropivacaine (Naropin 0.5%) Confirm Administered Dose 30 ml .ROUTE .STK-MED ONE Stop: 09/06/19 07:58 Senna (Senna) 8.6 mg PO BID PRN PRN Reason: Constipation Simvastatin (Zocor) 10 mg PO BEDTIME [facility] Last Admin: 09/06/19 21:48 Dose: 10 mg Sodium Chloride (Saline Flush) 10 ml FLUSH ASDIRECTED PRN PRN Reason: Keep Vein Open Stop: 09/06/19 18:00 Timolol Maleate (Timoptic 0.5% Ophth Soln) 0 ml EYEBOTH DAILY [facility] Last Admin: 09/07/19 09:11 Dose: 1 drop Tranexamic Acid (Cyklokapron) Confirm Administered Dose 1,000 mg .ROUTE .STK- MED ONE Stop: 09/06/19 07:11 Last Admin: 09/06/19 10:51 Dose: 1,000 mg Triamcinolone Acetonide (Kenalog-40) Confirm Administered Dose 80 mg .ROUTE .STK -MED ONE Stop: 09/06/19 08:06 Vancomycin HCl (Vancomycin) Confirm Administered Dose 1 gm .ROUTE .STK-MED ONE Stop: 09/06/19 07:11 Last Admin: 09/06/19 10:51 Dose: 1 gm
[2019-09-10] MEDS ORDERED: Levothyroxine 50 MCG Tab PO SCH (06:00)
--- NOTE | 2019-09-10 12:39 | PCM.OPNOTE ---
- General Post-Op/Procedure Note Date of Surgery/Procedure: 09/06/19 Operative Procedure(s): left total knee arthroplasty with right knee corticosteroid injection Pre Op Diagnosis: bilateral knee osteoarthrosis Post-Op Diagnosis: Same Anesthesia Technique: Local, MAC, Spinal Primary Surgeon: Chao Calvillo Anesthesia Provider: Malvin Wesley Slide Fastener Repairer: Parris Lagos Slide Fastener Repairer: Ilene Andrade EBL in mLs: 5 Complications: None Condition: Good Free Text/Narrative:: 2/2 9mm 29x9
--- NOTE | 2019-09-10 13:01 | OR ---
DATE OF OPERATION: 09/06/2019 SURGEON: Chao Calvillo MD OPERATION PERFORMED: Left total knee arthroplasty with right knee corticosteroid injection. PREOPERATIVE DIAGNOSIS: Bilateral knee osteoarthrosis. POSTOPERATIVE DIAGNOSIS: Bilateral knee osteoarthrosis. ANESTHESIA: Local MAC with spinal. ANESTHESIA PROVIDER: Gracie Szymanski. DESIGN DRAFTSMAN: Ilene Andrade LPN, and Parris Lagos PA-C ESTIMATED BLOOD LOSS: 5 mL. COMPLICATIONS: None. CONDITION: Stable. IMPLANTS: 1. Nathaniel size 2 press-fit CR femur. 2. [place] size 2 cemented universal tibial base plate. 3. Nathaniel size 2 9 mm CS polyethylene insert. 4. Cemented 29 x 9 mm asymmetric patella. DESCRIPTION OF PROCEDURE: The patient was identified in the preop holding area. Proper site was marked and identified by the surgeon. The patient was taken back to the operating theater. After adequate anesthesia, the patient's left lower extremity had a nonsterile tourniquet applied and it was sterilely prepped and draped in the usual sterile fashion. OR time-out was performed. The patient received 2 g IV Ancef. At this time, the left lower extremity was exsanguinated. Tourniquet was insufflated to 300 mmHg. Standard medial parapatellar incision was made. Medial parapatellar arthrotomy was created. Deep fibers of the MCL were raised and anterior fat pad was resected. At this time, attention was turned to the patella. Patella measured a 21, it was resected to a 13 for a 29 x 9 mm patella. Drill holes were then drilled and found to be in adequate position. The drill was then drilled in the distal femur and the intramedullary distal femoral cutting guide was then placed. 8 mm was resected off the distal femur and was found to be an adequate resection. Sizing guide was placed. It was found to be a size 2 press-fit CR femur that was shown on the implant record at the beginning of this dictation. The drill holes were drilled for the epicondylar axis using Whitesides line and epicondyles as reference. At this time, the 4-in-1 cutting block was placed. An anterior posterior and anterior and posterior chamfer cuts were then completed. I decided to press fit the femur secondary to the smaller size of the implant and negating the need for a box cut. Attention was turned to the tibia. The posterior medial lateral retractors were placed. The extramedullary tibial guide was placed. It was placed in the old footprint of the ACL. It was aligned with the center of the ankle and 0 degrees of slope, 9 mm was then resected off the unaffected side. There was found to be an acceptable reduction. At this time, posterior osteophytes were removed along with medial and lateral meniscus. A trial implant was placed with a correct sized tibia that was mentioned at the beginning of the dictation. A Nathaniel size 2 9 mm CS polyethylene insert was then placed. The patient's knee was brought through range of motion. The patella was tracking centrally and was stable to varus and valgus stress. Alignment was found to be roughly at 0 degrees. The tibia was stamped and drilled in proper rotation. The universal tibial base plate was impacted and cemented in place. Next, the Nathaniel size 2 press-fit CR femur impacted into place and the [place] size 2 9 mm CS polyethylene insert was placed. The patient's knee was brought into full extension. The patella was then cementedt in place at this time. One liter dilute Betadine solution was irrigated through the knee along with 3 L of pulse lavage irrigation with Ancef. Periarticular injection was then completed. The patient's knee was brought through a range of motion. Once the cement had time to set up and it was found to be stable to varus valgus stress, the patella was tracking centrally with full range of motion. At this time, a #2 barbed suture was used for closure of the medial parapatellar arthrotomy. Topical tranexamic acid was placed. 2-0 Vicryl was used subcutaneously, Prineo was used for the skin. The patient tolerated the procedure well and was sent to the PACU in stable condition. After this was completed, under sterile technique, 2 mL of 40 mg Kenalog and 4 mL of 0.25% Marcaine were injected to the right knee. MMODAL /[id number] APARNA
== END 2019-09-07 13:13 | disposition home or self-care (01) | DRG 470 ==
LOC: JD.SDS 07:00 → JD.MS 07:01 → JD.SDS 07:17 → JD.MS 07:17
PROVIDERS: ADMIT Orthopaedic Surgery; ATTEND Orthopaedic Surgery
PROC: 0SRD0J9 Replacement of Left Knee Joint with Synthetic Substitute, Cemented, Open Approach (ICD-10-PCS; principal; 2019-09-06)
PROC: 3E0U33Z Introduction of Anti-inflammatory into Joints, Percutaneous Approach (ICD-10-PCS; 2019-09-06)
PROC: 3E0U3BZ Introduction of Anesthetic Agent into Joints, Percutaneous Approach (ICD-10-PCS; 2019-09-06)
DX: M17.0 Bilateral primary osteoarthritis of knee (principal); E03.8 Other specified hypothyroidism; M85.80 Other specified disorders of bone density and structure, unspecified site; E78.2 Mixed hyperlipidemia; E78.00 Pure hypercholesterolemia, unspecified; E78.5 Hyperlipidemia, unspecified; M85.89 Other specified disorders of bone density and structure, multiple sites; C55 Malignant neoplasm of uterus, part unspecified; H40.9 Unspecified glaucoma; R42 Dizziness and giddiness; K59.09 Other constipation; H35.30 Unspecified macular degeneration; K21.9 Gastro-esophageal reflux disease without esophagitis; Z88.0 Allergy status to penicillin; Z79.890 Hormone replacement therapy; Z88.8 Allergy status to other drugs, medicaments and biological substances; Z79.899 Other long term (current) drug therapy; Z90.49 Acquired absence of other specified parts of digestive tract; Z90.710 Acquired absence of both cervix and uterus
CPT/HCPCS: 01402; 36415; 64450; 73560-26-LT; 73560-LT; 80053; 83036; 85027; 86140; 87641; 97110-GP; 97116-GP; 97161-GP; 97165-GO; 97530-GO; 97535-GO; 99221; 99231; A9270-GY; C1713; C1776; J0171; J0360; J0690; J0697; J1885; J2001; J2250; J2270; J2370; J2405; J2704; J2795; J3010; J3301; J3370; J3490; J7120

== ENCOUNTER 2021-02-02 09:09 | Emergency (ER) | payer MEDICARE, BC ==
[2021-02-02] MEDS ORDERED: Sodium Chloride 0.9% 10 ML Syringe FLUSH PRN (09:33)
[2021-02-02] MEDS ORDERED: Sodium Chloride 0.9% 1,000 ML IV SCH (09:45)
[2021-02-02] MEDS ORDERED: Ibuprofen 200 MG Tab PO ONE (12:30)
[2021-02-02] MEDS ORDERED: Sodium Chloride 0.9% 500 ML IV ONE (12:31)
--- NOTE | 2021-02-02 13:21 | EDM.PDOC ---
ED HPI GENERAL MEDICAL PROBLEM - General Chief Complaint: Gastrointestinal Problem Stated Complaint: [facility] Time Seen by Provider: 02/02/21 09:25 Source of Information: Reports: Patient, EMS, Family History Limitations: Reports: No Limitations - History of Present Illness INITIAL COMMENTS - FREE TEXT/NARRATIVE: The patient presents by [facility] for nausea, vomiting and diarrhea. The patient said her and her had chicken from a grocery store and around 2am she started having the diarrhea, nausea and vomiting. She also has some abdominal discomfort. She has no fever, headache, chest pain, shortness of breath or dysuria. Onset: Sudden Duration: Hour(s): Location: Reports: Abdomen Quality: Reports: Ache Severity: Mild Improves with: Reports: None Worsens with: Reports: None Associated Symptoms: Reports: Nausea/Vomiting. Denies: Chest Pain, Cough, Fever/Chills, Headaches, Shortness of Breath - Related Data Allergies Allergy/AdvReac Type Severity Reaction Status Date / Time amoxicillin Allergy Rash Verified 02/02/21 09:27 Home Meds: Home Meds Calcium Carbonate/Vitamin D3 [Calcium 500-Vit D3 125 Caplet] 1 each PO BID 02/21/17 [History] Dextran 70/Hypromellose [Artificial Tears] 1 drop OP TID PRN 02/21/17 [History] Docusate Sodium [Colace] 100 mg PO DAILY 02/21/17 [History] Levothyroxine 75 mcg PO SUTUWETHSA 02/21/17 [History] Levothyroxine [Synthroid] 50 mcg PO MOFR 02/21/17 [History] Lovastatin 20 mg PO BEDTIME 02/21/17 [History] Multivitamin [Multi-Vitamin Daily] 1 each PO DAILY 02/21/17 [History] Timolol Maleate [Timoptic 0.5% Ophth Soln] 1 drop EYEBOTH BID 02/21/17 [History] Cholecalciferol (Vitamin D3) [Vitamin D3] 5,000 unit PO DAILY 09/03/19 [History] Vit C/E/Zn/Coppr/Lutein/Zeaxan [Preservision Areds 2 Softgel] 1 cap PO BID 09/03/19 [History] Acetaminophen [Tylenol 8 Hour] 650 mg PO TID PRN 02/02/21 [History] Bimatoprost [LUMIGAN 0.01% Ophth Soln] 1 drop EYEBOTH BEDTIME 02/02/21 [History] Chlorthalidone 12.5 mg PO DAILY 02/02/21 [History] Ondansetron [Zofran ODT] 4 mg PO Q6H PRN #20 tab.dis 02/02/21 [Rx] Past Medical History HEENT History: Reports: Cataract, Glaucoma, Impaired Vision, Macular Degeneration Cardiovascular History: Reports: High Cholesterol Respiratory History: Reports: None Gastrointestinal History: Reports: GERD Genitourinary History: Reports: UTI, Recurrent, Other (See Below) Other Genitourinary History: cystitis with hematuria CIRCUITRY NEGATIVE INSPECTOR History: Reports: Other (See Below) Other CIRCUITRY NEGATIVE INSPECTOR History: ovarian cancer Musculoskeletal History: Reports: Arthritis Other Musculoskeletal History: left bakers cyst, left knee meniscus tear, degenerative joint disease Neurological History: Reports: Vertigo Psychiatric History: Reports: None Endocrine/Metabolic History: Reports: Hypothyroidism Hematologic History: Reports: None Immunologic History: Reports: None Oncologic (Cancer) History: Reports: Uterine Other Oncologic History: ovarian cancer had radiation 1990 Dermatologic History: Reports: None - Infectious Disease History Infectious Disease History: Reports: Measles - Past Surgical History Head Surgeries/Procedures: Reports: None HEENT Surgical History: Reports: None Cardiovascular Surgical History: Reports: None Respiratory Surgical History: Reports: None GI Surgical History: Reports: Appendectomy Female Surgical History: Reports: Hysterectomy, Oophorectomy Endocrine Surgical History: Reports: None Neurological Surgical History: Reports: None Musculoskeletal Surgical History: Reports: Knee Replacement Other Musculoskeletal Surgeries/Procedures:: bilat knee ache and hurt alot. Left knee replacement. Oncologic Surgical History: Reports: None Dermatological Surgical History: Reports: None Social & Family History - Family History Family Medical History: No Pertinent Family History - Tobacco Use Tobacco Use Status *Q: Never Tobacco User - Caffeine Use Caffeine Use: Reports: None Other Caffeine Use: 1 cup - Recreational Drug Use Recreational Drug Use: No ED ROS GENERAL - Review of Systems Review Of Systems: See Below Constitutional: Reports: No Symptoms HEENT: Reports: No Symptoms Respiratory: Reports: No Symptoms Cardiovascular: Reports: No Symptoms Endocrine: Reports: No Symptoms GI/Abdominal: Reports: Abdominal Pain, Diarrhea, Nausea, Vomiting : Reports: No Symptoms Musculoskeletal: Reports: No Symptoms ED EXAM, GI/ABD - Physical Exam Exam: See Below Exam Limited By: No Limitations General Appearance: Alert, No Apparent Distress Ears: Normal External Exam Nose: Normal Inspection Head: Atraumatic, Normocephalic Neck: Normal Inspection Respiratory/Chest: No Respiratory Distress, Lungs Clear, Normal Breath Sounds Cardiovascular: Regular Rate, Rhythm, No Edema, No Murmur GI/Abdominal Exam: Soft, Non-Tender, No Organomegaly, No Mass Back Exam: Normal Inspection Extremities: Normal Inspection Course - Vital Signs Last Recorded V/S: Last Vital Signs Temp 97.1 F 02/02/21 09:20 Pulse 100 02/02/21 09:20 Resp 20 02/02/21 09:20 BP 141/57 H 02/02/21 09:20 Pulse Ox 98 02/02/21 09:20 - Orders/Labs/Meds Orders: Active Orders 24 hr Category Date Time Status Cardiac Monitoring [RC] . DIRECTED Care 02/02/21 09:33 Active Peripheral IV Care [RC] . DIRECTED Care 02/02/21 09:33 Active Sodium Chloride 0.9% [Normal Saline] 1,000 ml Med 02/02/21 09:45 Active IV .BOLUS Sodium Chloride 0.9% [Saline Flush] Med 02/02/21 09:33 Active 10 ml FLUSH ASDIRECTED PRN Peripheral IV Insertion Adult [OM.PC] Stat Oth 02/02/21 09:33 Ordered Medication Orders Sodium Chloride (Normal Saline) 1,000 mls @ 1,000 mls/hr IV .BOLUS ROSY Last Admin: 02/02/21 09:48 Dose: 1,000 mls/hr Documented by: [id number] Sodium Chloride (Sodium Chloride 0.9% 10 Ml Syringe) 10 ml FLUSH ASDIRECTED PRN PRN Reason: Keep Vein Open Last Admin: 02/02/21 11:23 Dose: 10 ml Documented by: [email or web address] Labs: Laboratory Tests 02/02/21 02/02/21 02/02/21 Range/Units 09:50 09:50 10:40 WBC 11.63 H (3.98-10.04) K/mm3 RBC 4.79 (3.98-5.22) M/mm3 Hgb 13.9 (11.2-15.7) gm/dl Hct 43.4 (34.1-44.9) % MCV 90.6 (79.4-94.8) fl MCH 29.0 (25.6-32.2) pg MCHC 32.0 L (32.2-35.5) g/dl RDW Std Deviation 48.4 H (36.4-46.3) fL Plt Count 263 D (182-369) K/mm3 MPV 10.0 (9.4-12.3) fl Neut % (Auto) 93.4 H (34.0-71.1) % Lymph % (Auto) 1.5 L (19.3-51.7) % [place] % (Auto) 4.6 L (4.7-12.5) % Eos % (Auto) 0.2 L (0.7-5.8) Baso % (Auto) 0.1 (0.1-1.2) % Neut # (Auto) 10.88 H (1.56-6.13) K/mm3 Lymph # (Auto) 0.17 L (1.18-3.74) K/mm3 [place] # (Auto) 0.53 H (0.24-0.36) K/mm3 Eos # (Auto) 0.02 L (0.04-0.36) K/mm3 Baso # (Auto) 0.01 (0.01-0.08) K/mm3 Manual Slide Review Abnormal smear Sodium 142 (136-145) mEq/L Potassium 3.4 L (3.5-5.1) mEq/L Chloride 105 (98-107) mEq/L Carbon Dioxide 26 (21-32) mEq/L Anion Gap 14.4 (5-15) BUN 32 H (7-18) mg/dL Creatinine 1.0 (0.55-1.02) mg/dL Est Cr Clr Drug Dosing 30.08 mL/min Estimated GFR (MDRD) 53 (>60) mL/min BUN/Creatinine Ratio 32.0 H (14-18) Glucose 195 H (70-99) mg/dL Calcium 9.0 (8.5-10.1) mg/dL Total Bilirubin 0.6 (0.2-1.0) mg/dL AST 23 (15-37) U/L ALT 20 (14-59) U/L Alkaline Phosphatase 87 (46-116) U/L Total Protein 7.1 (6.4-8.2) g/dl Albumin 3.3 L (3.4-5.0) g/dl Globulin 3.8 gm/dL Albumin/Globulin Ratio 0.9 L (1-2) Lipase 108 (73-393) U/L Urine Color Yellow (Yellow) Urine Appearance Clear (Clear) Urine pH 6.5 (5.0-8.0) Ur Specific [place] 1.025 (1.005-1.030) Urine Protein Negative (Negative) Urine Glucose (UA) Negative (Negative) Urine Ketones 1+ H (Negative) Urine Occult Blood Trace-intact H (Negative) Urine Nitrite Negative (Negative) Urine Bilirubin Negative (Negative) Urine Urobilinogen 0.2 (0.2-1.0) Ur Leukocyte Esterase 1+ H (Negative) Urine RBC 0-5 (0-5) /hpf Urine WBC 0-5 (0-5) /hpf Ur Squamous Epith Cells 0-5 (0-5) /hpf Urine Bacteria Few (FEW) /hpf Urine Mucus Rare (FEW) /hpf Meds: Medications Generic Name Dose Route Start Last Admin Trade Name Freq PRN Reason Stop Dose Admin Sodium Chloride 1,000 mls @ 1,000 mls/hr 02/02/21 09:45 02/02/21 09:48 Normal Saline IV 1,000 mls/hr .BOLUS ROSY Administration Sodium Chloride 10 ml 02/02/21 09:33 02/02/21 11:23 Sodium Chloride 0.9% 10 Ml Syringe FLUSH 10 ml ASDIRECTED PRN Administration Keep Vein Open Discontinued Medications Generic Name Dose Route Start Last Admin Trade Name Freq PRN Reason Stop Dose Admin Sodium Chloride 500 mls @ 1,000 mls/hr 02/02/21 12:31 02/02/21 13:05 Normal Saline IV 02/02/21 13:00 1,000 mls/hr .BOLUS ONE Administration Ibuprofen 200 mg 02/02/21 12:30 02/02/21 12:43 Ibuprofen 200 Mg Tab PO 02/02/21 12:31 200 mg ONETIME ONE Administration - Re-Assessments/Exams Free Text/Narrative Re-Assessment/Exam: 02/02/21 13:19 I ordered an IV NS 1L bolus, labs and UA. She got zofran 4mg IV by EMS. Her WBC was slightly elevated at 11.63. Her K is low at 3.4. Her glucose is elevated at 195. Her lipase is normal. She feels better and she is holding down water and a cracker. Departure - Departure Time of Disposition: 13:25 Disposition: Home, Self-Care 01 Condition: Good Clinical Impression: Vomiting, Diarrhea, Food poisoning - Discharge Information *PRESCRIPTION DRUG MONITORING PROGRAM REVIEWED*: Not Applicable *COPY OF PRESCRIPTION DRUG MONITORING REPORT IN PATIENT ANA MARIA: Not Applicable Prescriptions: Ondansetron [Zofran ODT] 4 mg PO Q6H PRN #20 tab.dis PRN Reason: Nausea\vomiting Referrals: Timur Styles MD [Primary Care Provider] - 1 Week Additional Instructions: Drink plenty of fluids. Take the zofran every 6 hours as needed for nausea and vomiting. Advance your diet as tolerated later today. Please return if you are worse. Sepsis Event Note (ED) - Evaluation Sepsis Screening Result: No Definite Risk - Focused Exam Vital Signs: Vital Signs Temp Pulse Resp BP Pulse Ox 02/02/21 09:20 97.1 F 100 20 141/57 H 98 - My Orders Last 24 Hours: My Active Orders 02/02/21 09:33 Cardiac Monitoring [RC] . DIRECTED Peripheral IV Care [RC] . DIRECTED Sodium Chloride 0.9% [Saline Flush] 10 ml FLUSH ASDIRECTED PRN Peripheral IV Insertion Adult [OM.PC] Stat 02/02/21 09:45 Sodium Chloride 0.9% [Normal Saline] 1,000 ml IV .BOLUS - Assessment/Plan Last 24 Hours: My Active Orders 02/02/21 09:33 Cardiac Monitoring [RC] . DIRECTED Peripheral IV Care [RC] . DIRECTED Sodium Chloride 0.9% [Saline Flush] 10 ml FLUSH ASDIRECTED PRN Peripheral IV Insertion Adult [OM.PC] Stat 02/02/21 09:45 Sodium Chloride 0.9% [Normal Saline] 1,000 ml IV .BOLUS
[2021-02-02 16:42] VITALS: BP 108/53; PULSE 110
== END 2021-02-02 14:40 | disposition home or self-care (01) ==
LOC: JD.ED 09:09
DX: A05.9 Bacterial foodborne intoxication, unspecified (principal); D72.829 Elevated white blood cell count, unspecified; E78.00 Pure hypercholesterolemia, unspecified; E03.9 Hypothyroidism, unspecified; Z88.0 Allergy status to penicillin; Z79.899 Other long term (current) drug therapy
CPT/HCPCS: 36415; 80053; 81001; 83690; 85025; 99284; A9270; J7030; 99283

== ENCOUNTER 2021-07-02 06:49 | Day surgery (SDC) | payer MEDICARE, BC ==
--- NOTE | 2021-07-02 06:39 | PCM.PREANE ---
Preanesthetic Assessment - Procedure Proposed Procedure: right reverse total shoulder - Anesthesia/Transfusion/Family Hx Anesthesia History: Prior Anesthesia Reaction (nausea) Family History of Anesthesia Reaction: No Transfusion History: No Prior Transfusion(s) Intubation History: Unknown - Review of Systems General: No Symptoms Pulmonary: No Symptoms Cardiovascular: Dyspnea on Exertion Gastrointestinal: No Symptoms Neurological: Numbness (fingers left hand), Difficulty Walking Other: Reports: Thyroid Problems (hypothyroid), Neck Pain (from the shoulder) - Physical Assessment NPO Status Date: 07/01/21 NPO Status Time: 17:00 Height: 1.78 m Weight: 57.1 kg ASA Class: 3 Mental Status: Alert & Oriented x3 Airway Class: Mallampati = 1 Dentition: Reports: Bridge Thyro-Mental Finger Breadths: 3 Mouth Opening Finger Breadths: 3 ROM/Head Extension: Limited/Partial Lungs: Clear to Auscultation, Normal Respiratory Effort Cardiovascular: Regular Rate, Regular Rhythm - Allergies Allergies/Adverse Reactions: Allergies Allergy/AdvReac Type Severity Reaction Status Date / Time amoxicillin Allergy Rash Verified 07/01/21 18:26 - Anesthesia Plan Pre-Op Medication Ordered: None - Acknowledgements Anesthesia Type Planned: General Anesthesia, Regional Block (Right ISNB for post-op pain) Pt an Appropriate Candidate for the Planned Anesthesia: Yes Alternatives and Risks of Anesthesia Discussed w Pt/Guardian: Yes Pt/Guardian Understands and Agrees with Anesthesia Plan: Yes PreAnesthesia Questionnaire HEENT History: Reports: Cataract, Glaucoma, Impaired Vision, Macular Degeneration Cardiovascular History: Reports: High Cholesterol, Hypertension Respiratory History: Reports: None Gastrointestinal History: Reports: Chronic Constipation, GERD Genitourinary History: Reports: UTI, Recurrent, Other (See Below) Other Genitourinary History: cystitis with hematuria NEW PRODUCT TRAINER History: Reports: Other (See Below) Other OB/BYN History: ovarian cancer Musculoskeletal History: Reports: Arthritis Other Musculoskeletal History: left bakers cyst, left knee meniscus tear, degenerative joint disease Neurological History: Reports: Vertigo Psychiatric History: Reports: None Endocrine/Metabolic History: Reports: Hypothyroidism, Osteopenia Hematologic History: Reports: None, Other (See Below) Other Hematologic History: hypoalbumenmia, thrombocytosis Immunologic History: Reports: None Oncologic (Cancer) History: Reports: Uterine Other Oncologic History: ovarian cancer had radiation 1990 Dermatologic History: Reports: None - Infectious Disease History Infectious Disease History: Reports: None - Past Surgical History Head Surgeries/Procedures: Reports: None HEENT Surgical History: Reports: None Cardiovascular Surgical History: Reports: None Respiratory Surgical History: Reports: None GI Surgical History: Reports: Appendectomy, Colonoscopy Female Surgical History: Reports: Hysterectomy, Oophorectomy Endocrine Surgical History: Reports: None Neurological Surgical History: Reports: None Musculoskeletal Surgical History: Reports: Knee Replacement Other Musculoskeletal Surgeries/Procedures:: bilat knee ache and hurt alot. Left knee replacement. Oncologic Surgical History: Reports: None Dermatological Surgical History: Reports: None - SUBSTANCE USE Tobacco Use Status *Q: Never Tobacco User Tobacco Use Within Last Twelve Months: No Second Hand Smoke Exposure: No Days Per Week of Alcohol Use: 0 Number of Drinks Per Day: 0 Total Drinks Per Week: 0 Recreational Drug Use History: No - HOME MEDS Home Medications: Home Meds Calcium Carbonate/Vitamin D3 [Calcium 500-Vit D3 125 Caplet] 2 each PO DAILY 02/21/17 [History] Dextran 70/Hypromellose [Artificial Tears] 1 drop OP TID PRN 02/21/17 [History] Docusate Sodium [Colace] 100 mg PO DAILY 02/21/17 [History] Levothyroxine 75 mcg PO SUTUWETHSA 02/21/17 [History] Levothyroxine [Synthroid] 50 mcg PO MOFR 02/21/17 [History] Lovastatin 20 mg PO BEDTIME 02/21/17 [History] Multivitamin [Multi-Vitamin Daily] 1 each PO DAILY 02/21/17 [History] Timolol Maleate [Timoptic 0.5% Ophth Soln] 1 drop EYEBOTH BID 02/21/17 [History] Cholecalciferol (Vitamin D3) [Vitamin D3] 5,000 unit PO DAILY 09/03/19 [History] Vit C/E/Zn/Coppr/Lutein/Zeaxan [Preservision Areds 2 Softgel] 1 cap PO BID 09/03/19 [History] Acetaminophen [Tylenol 8 Hour] 650 mg PO TID PRN 02/02/21 [History] Bimatoprost [LUMIGAN 0.01% Ophth Soln] 1 drop EYEBOTH BEDTIME 02/02/21 [History] Chlorthalidone 12.5 mg PO DAILY 02/02/21 [History] - CURRENT (IN HOUSE) MEDS Current Meds: Current Medications Lactated Ringer's (Ringers, Lactated) 1,000 mls @ 125 mls/hr IV ASDIRECTED ROSY Stop: 07/02/21 23:00 Lidocaine/Sodium Bicarbonate (Lidocaine 1%/Sod Bicarbonate In Ns 8.4% 1 Ml Syringe) 0.25 ml IDERM ONETIME PRN PRN Reason: Prior to IV Start Stop: 07/02/21 18:00 Sodium Chloride (Sodium Chloride 0.9% 10 Ml Syringe) 10 ml FLUSH ASDIRECTED PRN PRN Reason: Keep Vein Open Stop: 07/02/21 18:00 Discontinued Medications Cefazolin Sodium (Cefazolin 1 Gm Vial) Confirm Administered Dose 2 gm .ROUTE .STK-MED ONE Stop: 07/02/21 06:22 Epinephrine HCl (Epinephrine 1 Mg/Ml Sdv) Confirm Administered Dose 1 mg .ROUTE .STK-MED ONE Stop: 07/02/21 06:29 Fentanyl (Fentanyl 100 Mcg/2 Ml Sdv) Confirm Administered Dose 100 mcg .ROUTE .STK-MED ONE Stop: 07/02/21 06:19 Lidocaine HCl (Xylocaine-Mpf 1%) Confirm Administered Dose 4 mls @ as directed .ROUTE .STK-MED ONE Stop: 07/02/21 06:19 Ondansetron HCl (Ondansetron 4 Mg/2 Ml Sdv) Confirm Administered Dose 4 mg .ROUTE .STK-MED ONE Stop: 07/02/21 06:19 Propofol (Propofol 200 Mg/20 Ml Sdv) Confirm Administered Dose 200 mg .ROUTE .STK-MED ONE Stop: 07/02/21 06:19 Rocuronium [place] (Rocuronium 50 Mg/5 Ml Vial) Confirm Administered Dose 50 mg .ROUTE .STK-MED ONE Stop: 07/02/21 06:19 Ropivacaine (Ropivacaine 0.5% 5 Mg/Ml 30 Ml Sdv) Confirm Administered Dose 30 ml .ROUTE .STK-MED ONE Stop: 07/02/21 06:29
[~2021-07-02 06:49] MED LIST changes: +EPINEPHrine 1 MG/ML SDV ONE; +Lactated Ringers 1,000 ML IV SCH; +Lidocaine 1% 4 ML ONE; +Ondansetron 4 MG/2 ML SDV ONE; +Propofol 200 MG/20 ML SDV ONE; +Rocuronium 50 MG/5 ML Vial ONE; +Ropivacaine 0.5% 5 MG/ML 30 ML SDV ONE; +Scopolamine 1.5 MG Transdermal Patch TOP ONE; +ceFAZolin 1 GM Vial ONE; +fentaNYL 100 MCG/2 ML SDV ONE
[2021-07-02] MEDS: Bupivacaine 0.25% 10 ML SDV ONE ×2 (08:03→09:03)
[2021-07-02] MEDS: Vancomycin 1 GM SDV ONE ×2 (08:03→08:45)
[2021-07-02] MEDS: Triamcinolone Acetonide 40 MG/ML 1 ML SDV ONE ×2 (08:04→09:03)
[2021-07-02] MEDS ORDERED: Lactated Ringers 1,000 ML ONE (08:16)
--- NOTE | 2021-07-02 09:13 | CR ---
Right shoulder: 2 fluoroscopic spot views were obtained utilizing C-arm device of the right shoulder in the operating room. Comparison: Prior CT right shoulder study of 06/19/21. Right shoulder prosthesis of the reverse type is seen. Components are aligned on final film. Underlying bony structure show nothing definitely acute. Impression: 1. Procedural study as described above. Diagnostic code #2
--- NOTE | 2021-07-02 09:21 | PCM.POSTAN ---
POST ANESTHESIA ASSESSMENT - MENTAL STATUS Mental Status: Alert, Oriented - VITAL SIGNS Vital Signs: Last Vital Signs Temp 36.6 C 07/02/21 06:15 Pulse 90 07/02/21 06:15 Resp 18 07/02/21 06:15 BP 151/73 H 07/02/21 06:15 Pulse Ox 98 07/02/21 06:15 - RESPIRATORY Respiratory Status: Respiratory Rate WNL, Airway Patent, O2 Saturation Stable, Supplemental Oxygen - CARDIOVASCULAR CV Status: Pulse Rate WNL, Blood Pressure Stable - GASTROINTESTINAL GI Status: No Symptoms - PAIN Pain Score: 0 - POST OP HYDRATION Hydration Status: Adequate & Stable - OBSERVATIONS Free Text/Narrative:: no anesthesia complications noted
--- NOTE | 2021-07-02 09:30 | PCM.SN.2 ---
- Free Text/Narrative Note: Anesthesia Note: Interscalene Block Time Out:06 Start: 656 Stop: 706 Current Procedure: Right interscalene block under US guidance for postoperative pain control requested by Dr. Calvillo. Patient chart reviewed, risk/benefits discussed with patient, consent obtained. Patient positioned supine, monitors/alarms on, oxygen placed via nasal cannula at 2 LPM. IV sedation administered: Fentanyl 100 mcg IV given in preop prior to block placement. Right shoulder prepped with two chloropreps. Sterile drapes placed with aseptic technique noted. Under US guidance, right subclavian artery visualized along with the right brachial plexus. Plexus followed up to C6 cricoid level, and area localized with 2mls of 1% lidocaine. 22gauge 2 inch stimiplex needle advanced under US with 0.6mV with stimulation of biceps noted. Good stimulation noted with decreased voltage and absent at 0.3mVs. 1ml of Normal Saline injected with loss of stimulation noted to confirm needle not placed intraneurally. Incremental dosing of 5mls with negative aspiration noted prior to each injection of 0.5% ropivacaine with 1:200,000 epinephrine. Total volume=30mls. Please refer to nurses noted for vital signs. Jeet Sprague PREKINDERGARTEN TEACHER
[2021-07-02] MEDS ORDERED: Acetaminophen/HYDROcodone 325-5 MG Tab PO PRN (09:52)
--- NOTE | 2021-07-02 09:59 | CR ---
Right shoulder: Single AP view of the right shoulder was obtained. Comparison: Prior shoulder study performed on the same day (9:34 AM). Reverse right shoulder prosthesis is seen. Components are aligned. Underlying bony structures show nothing acute. Impression: 1. Satisfactory postoperative radiographic appearance of recently placed right shoulder prosthesis. Diagnostic code #2
--- NOTE | 2021-07-02 14:17 | PCM48HPAN ---
Post Anesthesia Note - EVALUATION WITHIN 48HRS OF ANESTHETIC Vital Signs in Normal Range: Yes Patient Participated in Evaluation: Yes Respiratory Function Stable: Yes Airway Patent: Yes Cardiovascular Function Stable: Yes Hydration Status Stable: Yes Pain Control Satisfactory: Yes Nausea and Vomiting Control Satisfactory: Yes Mental Status Recovered: Yes Vital Signs: Last Vital Signs Temp 35.9 C L 07/02/21 11:30 Pulse 97 07/02/21 11:30 Resp 20 07/02/21 11:30 BP 115/72 07/02/21 11:30 Pulse Ox 94 L 07/02/21 11:30
[2021-07-02 14:21] VITALS: BP 132/70; PULSE 106
--- NOTE | 2021-07-08 18:34 | PCM.OPNOTE ---
- General Post-Op/Procedure Note Date of Surgery/Procedure: 07/02/21 Operative Procedure(s): right reverse total shoulder arthroplasty Pre Op Diagnosis: right shoulder rotator cuff tear arthropathy Post-Op Diagnosis: Same Anesthesia Technique: General ET Tube, Regional Block Primary Surgeon: Chao Calvillo Anesthesia Provider: Jeet Sprague Guard Immigration: Parris [place] Guard Immigration: Ilene Andrade EBL in mLs: 50 Complications: glenoid fracture Condition: Good Free Text/Narrative:: 32+2 28 baseplate 8 stem V toss bone graft
--- NOTE | 2021-07-22 18:30 | OR ---
DATE OF OPERATION: 07/02/2021 SURGEON: Chao Calvillo MD OPERATION PERFORMED: Right reverse total shoulder arthroplasty. PREOPERATIVE DIAGNOSIS: Right shoulder rotator cuff tear arthropathy. POSTOPERATIVE DIAGNOSIS: Right shoulder rotator cuff tear arthropathy. ANESTHESIA: General endotracheal intubation with regional interscalene block. ANESTHESIA PROVIDER: Jeet Sprague CRNA. ASSISTANTS: Parris Lagos PA-C; and Ilene Andrade LPN. ESTIMATED BLOOD LOSS: 50 mL. COMPLICATIONS: Glenoid fracture. CONDITION: Stable. IMPLANTS: 1. Nathaniel size 32, +2 glenosphere. 2. Nathaniel size 20 mm baseplate. 3. Nathaniel size 8, 135 degree reverse humeral stem. 4. Vitoss bone graft. DESCRIPTION OF PROCEDURE: The patient was identified in the preoperative holding area. Proper site was marked and identified by the surgeon. The patient was taken back to the operative theater where after adequate anesthesia, proper site was marked and identified and this was then right upper extremity, sterilely prepped and draped in the usual sterile fashion. OR time-out was performed. The patient received 2 g IV Ancef. Standard deltopectoral incision was made and this was taken down to the cephalic vein. Cephalic vein was retracted laterally with the deltoid. Conjoined tendon was identified and was retracted medially. Anterior humeral circumflex vessels were ligated. The patient's biceps tendon was not there as it had previously ruptured. Takedown of what was remaining of the subscap was done at this time. Humeral head was then dislocated. Neck cut was completed. The patient was noted to have severely osteoporotic bone. Anterior and posterior glenoid retractors were then placed. Circumferential removal of any scar tissue as well as any remaining labrum was done at this time with a partial capsulectomy. Guide pin was placed in a center-center position and the 28 mm reamer was then utilized until good bony bleeding cancellous bone. The patient was noted to have a very small glenoid and was very thin. We did measure it with the central compression screw. The central compression screw was then placed with the glenosphere. At this time, the anterior third of the glenoid did fracture and the compression screw did not have very good compression. I was able to get the glenosphere to lie on the glenoid flush and then was able to get a superior and posterior locking screw in divergent fashion that had very good bite and the glenoid base plate seemed to have good fixation. I then bone grafted using Vitoss as well as some of the cancellous bone from the previous cuts around the fracture area. The 32, +2 glenosphere was then impacted into place and it seemed to be solid. Attention was turned to the humerus. Broach was used and I was able to broach up to a size 8, which was found to be rotationally vertically stable at this time with a 6 trial construct. Shoulder was relocated. There were no signs of instability. The C-arm fluoroscopy showed no signs of loosening of the glenoid component with good range of motion and no signs of fracture of the humerus. Trial implants were then removed. Size 8 reverse humeral stem 135-degree was then constructed on the back table with 4 mm poly and 2 mm construct. This was then impacted into the humerus and the humerus was relocated. Again this showed no signs of glenoid loosening. Adequate saline was irrigated through the wound. 1 L pulse lavage irrigation with Ancef was irrigated through the wound along with 400 mL Irrisept irrigation. Topical tranexamic acid and vancomycin powder were applied. 2-0 Vicryl was used subcutaneously. Prineo was used for skin closure. The patient tolerated the procedure well and was sent to PACU in stable condition with a sling. She will only do passive range of motion for the first 4 weeks. MMODAL /[id number]
== END 2021-07-02 13:50 | disposition home or self-care (01) ==
LOC: JD.SDS 06:49
PROVIDERS: ATTEND Orthopaedic Surgery
DX: M19.011 Primary osteoarthritis, right shoulder (principal); M75.101 Unspecified rotator cuff tear or rupture of right shoulder, not specified as traumatic; I10 Essential (primary) hypertension; E03.9 Hypothyroidism, unspecified; E78.2 Mixed hyperlipidemia; N39.0 Urinary tract infection, site not specified; R60.9 Edema, unspecified; Z88.1 Allergy status to other antibiotic agents; Z88.8 Allergy status to other drugs, medicaments and biological substances; Z79.899 Other long term (current) drug therapy; Z79.890 Hormone replacement therapy; Z90.49 Acquired absence of other specified parts of digestive tract; Z98.890 Other specified postprocedural states
CPT/HCPCS: 23472; 73020; 76000; 97110; 97116; 97161; A9270; C1713; C1769; C1776; J0171; J0690; J2370; J2405; J2704; J2795; J3010; J3301; J3370; J3490; J7120; 01638; 64415; 76942; 99100